=== PATIENT | female | born 1965 | race Caucasian/White ===

== ENCOUNTER 2019-09-21 11:13 | Outpatient (RCR) | payer MEDICARE, SELFPAY ==
[2019-09-21 11:56] LABS: Basophils % 0.4 %; Eosinophils % 0.4 %; Hematocrit 39.8 % (37.0-47.0); Hemoglobin 13.4 g/dL (11.5-15.3); Lymphocytes # 2.1 10^3/uL (0.8-4.8); Lymphocytes % 44.4 %; Mean Corpuscular HGB Conc 33.7 g/dL (30.0-36.0); Mean Corpuscular Hemoglobin 33.2 pg (28.0-34.0); Mean Corpuscular Volume 98.5 fL (81-99); Mean Platelet Volume 8.9 fL (7.4-10.4); Monocytes # 0.3 10^3/uL (0.2-0.9); Monocytes % 6.3 %; Neutrophils # 2.2 10^3/uL (1.8-7.7); Neutrophils % 48.3 %; Nucleated Red Blood Cells % 0 %; Platelet Count 207 10^3/cmm (130-400); Red Blood Count 4.04 10^6/uL (4.1-5.3); White Blood Count 4.6 10^3/uL (4.0-10.0)
[2019-09-21 12:14] LABS: Alanine Aminotransferase 12 U/L (0-33); Albumin Level 5.3 g/dL (3.5-5.2); Alkaline Phosphatase 83 IU/L (35-105); Anion Gap 15.9 (5-19); Blood Urea Nitrogen 8 mg/dL (6-20); Calcium 10.2 mg/Dl (8.6-10.0); Carbon Dioxide 26 mmol/L (22-29); Chloride 98 mmol/L (98-107); Globulin 1.8 g/dL (1.3-4.6); Glomerular Filtration Rate 87.9 mL/min (90-130); Glucose 106 mg/dL (74-109); Potassium 3.9 mmol/L (3.5-5.1); Sodium 136 mmol/L (136-145); Total Bilirubin 0.4 mg/dL (0.15-1.2); Total Protein 7.1 g/dL (6.6-8.7)
[2019-09-21 12:15] LABS: Aspartate Amino Transferase 20 U/L (0-32)
--- NOTE | 2019-09-24 12:42 | ONC FU_ITS ---
Dr. Giron Patient Follow-Up Note Patient: Zee Yancey Unit #: [id number]: [id number] Dicatated By: Moncho Giron M.D.Date of Visit:Sep 21, 2019 Onc Med Follow-up/Prog Note Chief Complaint: Breast cancer/anal canal cancer. History of Present Illness: This is a 54 year-old woman with invasive cancer of the right breast, stage IIA (T1c, pN1, M0), ER positive/WI negative and HER-2/pawan negative. 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 She underwent right modified radical mastectomy in January 2003. Pathology showed a 2 cm invasive carcinoma with involvement in 2 of 8 lymph nodes. The tumor was ER positive at 70%. It was WI negative and HER-2/pawan negative. She was given adjuvant chemotherapy with 4 cycles of epirubicin/cyclophosphamide followed by 4 cycles of Taxol, which she completed in September 2003. She was given adjuvant hormonal therapy with Femara, which she continued until March 2008. Treatment was stopped at that point because of worsening joint pain. Thus far during followup there has been no evidence of recurrence of her breast cancer. 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 A yearly mammogram in April 2014 showed some enlargement of left axillary lymph nodes compared to the prior studies. There were no suspicious findings in the breast. Ultrasound also showed significantly enlarged lymph nodes. They measured 0.89 x 0.92 cm, 1.4 x 3.1 cm, and 1.4 x 1.7 x 3.9 cm. She underwent needle biopsy in [place]. Pathology showed fragments of hyperplastic lymph node with no tumor seen. One of the biopsy specimens showed a single collection of histiocytes suggestive of possible early noncaseating granuloma. In May 2016 she had presented with severe pain in the anal area. It was initially treated as a hemorrhoid. She also had several episodes of rectal bleeding with bright red blood in the stool. She was eventually referred to Dr. Krishnamurthy who performed a colonoscopy on 09/17/2016. It revealed a 4 cm long ulcerated a mass located anteriorly extending from the anal verge. Biopsies showed invasive moderately differentiated keratinizing squamous cell carcinoma. Staging CT of the abdomen and pelvis on 09/25/2016 showed no intra-abdominal, retroperitoneal or pelvic masses, adenopathy, or fluid collections. There were no bony destructive lesions. The clinically described anal mass was not clearly identified on the CT. She did have PET/CT on 10/10/2016 which revealed 4 cm anorectal malignancy with SUV of 15.2; 6 mm right internal iliac lymph node with SUV of 1.8; 3 mm lymph node in the right ischiorectal fat is too small to characterize and bilateral 5 mm inguinal nodes have preserved fatty norma and SUV of 1.2 and were more likely reactive. Thus, by clinical evaluation her disease appeared to be stage II (T2, N0, M0). She was seen by Dr. Howard, and she was offered concurrent therapy with Xeloda/mitomycin and radiation. She began her chemotherapy on 10/27/2016. As of 11/09/2016 her Xeloda was held due to low blood, ANC 500. She was given Levaquin 500 mg po daily, and she was also given Neupogen 300 mcg daily. Her treatment was further complicated by pretty severe nausea/vomiting. She required IV hydration and IV antibiotics on multiple occasions. She also had complaints of urinary frequency, urgency, and one episode of incontinence. She was seen in the emergency room on 11/14/2016. CT scan showed mild circumferential urinary bladder wall thickening and perivesicular edema with bilateral urothelial thickening and periureteral edema. Findings were compatible with cystitis and ascending urinary tract infection. She was discharged home with Bactrim DS. She was also given Zofran for her nausea. She then returned to the clinic on 11/15/2016 for further IV hydration and IV emetics. She eventually was able to restart the Xeloda and radiation. However, her day 29 mitomycin-C had to be delayed. It eventually was administered on 12/09/2016, but with a 50% dose reduction. She completed radiation on 12/17/2016 to a total dose of 5580 cGy. Her follow-up laboratory studies showed moderately severe pancytopenia with ANC dropping to 700, hemoglobin dropping to 8.3 g, and platelet count dropping to 47,000. She had an uneventful recovery. As of 01/27/2017 her hemoglobin was up to 12.2 g with white blood cell count 4200, and platelet count 288,000. She has since then continued on observation/expectant management. Her other medical illnesses include mitral valve prolapse, GERD, and depression. She has had evidence of osteoporosis on her bone density studies, and she also has had a mildly elevated cholesterol. She had evidence of degenerative disease of the cervical spine by MRI. She has had chronic headaches associated with it. She is a nonsmoker. INTERIM HISTORY: Surveillance CT abdomen/pelvis on 04/03/2019 showed no acute findings and no evidence of recurrence/progression of the anal canal cancer. At that point she had lost a little weight and she also complained of some diarrhea, which she thought was related to something she had eaten. She was otherwise doing well clinically, and she continued on observation/expectant management. She is seen for a scheduled visit. She has continued to have intermittent episodes of nausea and diarrhea which last 1 to 2 weeks and cycle about every 3 weeks. She says that during those episodes she cannot eat. She has continued to lose weight. Her energy comes and goes. She is still able to do light work. ECOG score is 1. She has not had fever or night sweats. She has a little bit of hot flashes. She recently became aware of a knot in her throat, and she also has had some cough. She does not complain of shortness of breath or chest pain. She continues to have heartburn despite taking omeprazole twice a day along with Pepcid as needed. She has no complaints. She has lower back pain, and she also has persistent neuropathy pain and headaches, all of which are chronic. Medications: Ativan 0.5 - 1 (1 mg) Tablet Oral four times a day PRN, Cholecalciferol 40251 Units - Take 1 Capsule Oral q 4 weeks, EQ Acid Pipelines Manager Max St 1 Tablet (of 20 mg) Oral b.i.d. PRN, Neurontin 400 mg - Take 1 Capsule Oral b.i.d., Omeprazole 1 (20 mg) Tablet, enteric coated Oral b.i.d., Percocet 10-325 mg - Take 1 Tablet Oral four times a day PRN Allergies: Carafate Review of Systems: Constitutional - Her energy comes and goes. She is doing light work. She has intermittent episodes which she cannot eat. Her weight has dropped more than 10 pounds since March. She has not had fever. She has a little bit of hot flashes. ECOG score is 1, ENMT - She has a constant runny nose. No mouth sores. No sore throat or difficulty swallowing, but she has been aware of a knot in her throat, Hematologic/Lymphatic - No abnormal bruising or bleeding, Respiratory - No shortness of breath. She recently has had a cough. No pleuritic pain or hemoptysis, Cardiovascular - No angina pain. No palpitations, Gastrointestinal - She has episodes of nausea and she continues to have heartburn despite taking omeprazole twice a day and taking Pepcid as needed. She also has intermittent diarrhea. No blood in the stool or black stools, Genitourinary (F) - No dysuria or hematuria. No urinary frequency. No urgency or incontinence, Musculoskeletal - She has lower back pain, which is chronic, Integumentary - No skin complications, Neurologic - She has headaches. She has occasional dizzy spells. She has neuropathy, which is the same, Psychiatric - She has depression which comes and goes. She is having difficulty sleeping. Vital Signs: Performed on Sep 21, 2019 12:57 Height - 67.00 in Weight - 104.6 lbs (LOW) BSA - 1.54 sq.m BMI - 16.38 (LOW) Temperature - 97.5 F (LOW) Pulse - 89 /min Respiration - 14 /min BP - 140/75 mm(hg) O2 Sat - 100 % Pain - 0 Physical Examination: Constitutional - She does not appear ill, but she has had noticeable weight loss, Eyes - Sclerae nonicteric. Conjunctivae clear, ENMT - There are no lesions noted in the oral cavity, Hematologic/Lymphatic - No cervical, clavicular, or axillary adenopathy, Respiratory - Lungs are clear with good air movement bilaterally, Cardiovascular - Heart rhythm is regular. There is a II/ systolic murmur. There is no gallop or rub noted, Abdomen - Soft. Liver and spleen are not enlarged. There is no abdominal mass or ascites noted and there is no inguinal adenopathy, Extremities - No edema, Neurologic - No focal neurologic deficits noted. Lab/Imaging: Test performed on Apr 03, 2019 14:24 Sodium 135 mmol/L Potassium 3.6 mmol/L Chloride 96 mmol/L CO2 28 mmol/L Anion Gap 14.6 BUN 7 mg/dL Creatinine 0.6 mg/dL Cr Clearance (Est) 91.82 mL/min eGFR 105.4 mL/min Glucose 87 mg/dl Calcium 9.4 mg/dL Protein, Total 7.4 g/dL Albumin 4.5 g/dL Globulin 2.9 gm/dL Bilirubin, Total 0.4 mg/dL ALT (SGPT) 11 U/L AST (SGOT) 14 U/L Alkaline Phosphatase 86 IU/L WBC 5.8 /cmm RBC 4.03 10 6/cmm HGB 13.5 g/dl HCT 38.8 % MCV 96.3 /cmm MCH 33.4 pg MCHC 34.7 g/dl RDW 13.3 % Platelet Count 193 10 3/cmm MPV 7.1 fl Neutrophils 2.7 10 3/cmm Lymphocytes 2.7 10 3/cmm Monocytes 0.4 10 3/cmm Eosinophils 0.1 10 3/cmm Basophils 0.0 10 3/cmm Neutrophil % 46.1 % Lymphocyte % 46.1 % Monocyte % 6.3 % Eosinophil % 1.1 % Basophils % 0.4 % Impression: 1. Patient with newly diagnosed squamous cell carcinoma of the anal canal. Thus far by clinical evaluation it appears that her disease is stage II (T2, N0, M0), though her staging PET/CT is still pending. 2. She has previous history of invasive cancer of the right breast, stage IIA, ER positive/WI negative and HER-2/pawan negative. 3. Her treatment included right modified radical mastectomy in January 2003 followed by adjuvant chemotherapy and adjuvant hormonal therapy with Femara. 4. She has had some chronic pain due to peripheral neuropathy from the Taxol. 5. She was found to have left axillary lymphadenopathy by mammogram and ultrasound in April 2014. Needle biopsy of a left axillary lymph node showed no malignancy. Her other medical illnesses include: 6. Mitral valve prolapse. 7. GERD. 8. Chronic migraine. 9. Osteoporosis. 10. Degenerative disease of the spine. 11. She has a history of depression. She began treatment with chemoradiation utilizing the 5-FU/mitomycin C chemotherapy regimen. Her day 1 treatment was administered on 10/27/2016. Her treatment was complicated by severe neutropenia and by recurrent nausea/vomiting. She did recover with Neupogen and with IV hydration. However, her symptoms were severe enough that her Xeloda was temporarily put on hold, and her day 29 mitomycin-C had to be delayed. She eventually did complete her day 29 mitomycin-C, but at a 50% dose reduction. She completed radiation on 12/17/2016 to a total dose of 5580 cGy. During subsequent follow-up she developed moderately severe pancytopenia, but her blood counts recovered uneventfully. Restaging PET/CT from 05/28/2017 was consistent with a complete response to therapy and no evidence of metastatic breast cancer. During subsequent follow-up she continued to have nausea, anorexia, and acid reflux symptoms, but those symptoms had graudally improved, and as of March [address] scans had shown no evidence of recurrent/metastatic disease. Since then she has been having intermittent episodes of nausea and diarrhea, and she has had significant weight loss. The cause for this is uncertain. Plan: She remains on observation/expectant management for the anal canal cancer and the breast cancer. I am very concerned, though, about her GI symptoms and weight loss, and I am going to try and arrange for referral to a senior portfolio manager. I will see her again in 3 months. In the meantime, she will start paroxetine 20 mg daily for the depression. Signed By: Moncho Giron M.D. <<Signature on File>>
== END 2019-10-20 23:59 | disposition home or self-care (01) ==
LOC: ONCMED 11:13
PROVIDERS: Family Provider Nurse Practitioner Family; PCP Nurse Practitioner Family; Visit Provider Internal Medicine Medical Oncology
DX: Z08 Encounter for follow-up examination after completed treatment for malignant neoplasm (principal); Z85.048 Personal history of other malignant neoplasm of rectum, rectosigmoid junction, and anus; Z85.3 Personal history of malignant neoplasm of breast; R11.0 Nausea; R19.7 Diarrhea, unspecified; R63.4 Abnormal weight loss; K21.9 Gastro-esophageal reflux disease without esophagitis; I34.1 Nonrheumatic mitral (valve) prolapse; F32.9 Major depressive disorder, single episode, unspecified; M81.0 Age-related osteoporosis without current pathological fracture; M54.5 Low back pain; G62.0 Drug-induced polyneuropathy; T45.1X5S Adverse effect of antineoplastic and immunosuppressive drugs, sequela; G43.709 Chronic migraine without aura, not intractable, without status migrainosus; Z79.891 Long term (current) use of opiate analgesic; Z90.11 Acquired absence of right breast and nipple; Z92.21 Personal history of antineoplastic chemotherapy; Z92.23 Personal history of estrogen therapy; Z92.3 Personal history of irradiation
CPT/HCPCS: 80053; 85025; 99214

== ENCOUNTER 2020-04-29 10:17 | Outpatient (CLI) | payer MEDICARE, SELFPAY ==
--- NOTE | 2020-04-29 11:45 | ONC FU_ITS ---
[facility] Patient Note Patient: Zee Yancey Unit #: [id number]: [id number] Dictated By: Omar ColladoDate of Visit: Apr 29, 2020 Onc MED Follow-Up/Prog Note Chief Complaint: Breast cancer/anal canal cancer. History of Present Illness: Mrs Yancey is a 54 year-old woman with invasive cancer of the right breast, stage IIA (T1c, pN1, M0), ER positive/NV negative and HER-2/pawan negative. 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 She underwent right modified radical mastectomy in January 2003. Pathology showed a 2 cm invasive carcinoma with involvement in 2 of 8 lymph nodes. The tumor was ER positive at 70%. It was NV negative and HER-2/pawan negative. She was given adjuvant chemotherapy with 4 cycles of epirubicin/cyclophosphamide followed by 4 cycles of Taxol, which she completed in September 2003. She was given adjuvant hormonal therapy with Femara, which she continued until March 2008. Treatment was stopped at that point because of worsening joint pain. Thus far during followup there has been no evidence of recurrence of her breast cancer. 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 A yearly mammogram in April 2014 showed some enlargement of left axillary lymph nodes compared to the prior studies. There were no suspicious findings in the breast. Ultrasound also showed significantly enlarged lymph nodes. They measured 0.89 x 0.92 cm, 1.4 x 3.1 cm, and 1.4 x 1.7 x 3.9 cm. She underwent needle biopsy in [place]. Pathology showed fragments of hyperplastic lymph node with no tumor seen. One of the biopsy specimens showed a single collection of histiocytes suggestive of possible early noncaseating granuloma. In May 2016 she had presented with severe pain in the anal area. It was initially treated as a hemorrhoid. She also had several episodes of rectal bleeding with bright red blood in the stool. She was eventually referred to Dr. Krishnamurthy who performed a colonoscopy on 09/17/2016. It revealed a 4 cm long ulcerated a mass located anteriorly extending from the anal verge. Biopsies showed invasive moderately differentiated keratinizing squamous cell carcinoma. Staging CT of the abdomen and pelvis on 09/25/2016 showed no intra-abdominal, retroperitoneal or pelvic masses, adenopathy, or fluid collections. There were no bony destructive lesions. The clinically described anal mass was not clearly identified on the CT. She did have PET/CT on 10/10/2016 which revealed 4 cm anorectal malignancy with SUV of 15.2; 6 mm right internal iliac lymph node with SUV of 1.8; 3 mm lymph node in the right ischiorectal fat is too small to characterize and bilateral 5 mm inguinal nodes have preserved fatty norma and SUV of 1.2 and were more likely reactive. Thus, by clinical evaluation her disease appeared to be stage II (T2, N0, M0). She was seen by Dr. Howard, and she was offered concurrent therapy with Xeloda/mitomycin and radiation. She began her chemotherapy on 10/27/2016. As of 11/09/2016 her Xeloda was held due to low blood, ANC 500. She was given Levaquin 500 mg po daily, and she was also given Neupogen 300 mcg daily. Her treatment was further complicated by pretty severe nausea/vomiting. She required IV hydration and IV antibiotics on multiple occasions. She also had complaints of urinary frequency, urgency, and one episode of incontinence. She was seen in the emergency room on 11/14/2016. CT scan showed mild circumferential urinary bladder wall thickening and perivesicular edema with bilateral urothelial thickening and periureteral edema. Findings were compatible with cystitis and ascending urinary tract infection. She was discharged home with Bactrim DS. She was also given Zofran for her nausea. She then returned to the clinic on 11/15/2016 for further IV hydration and IV emetics. She eventually was able to restart the Xeloda and radiation. However, her day 29 mitomycin-C had to be delayed. It eventually was administered on 12/09/2016, but with a 50% dose reduction. She completed radiation on 12/17/2016 to a total dose of 5580 cGy. Her follow-up laboratory studies showed moderately severe pancytopenia with ANC dropping to 700, hemoglobin dropping to 8.3 g, and platelet count dropping to 47,000. She had an uneventful recovery. As of 01/27/2017 her hemoglobin was up to 12.2 g with white blood cell count 4200, and platelet count 288,000. She has since then continued on observation/expectant management. Her other medical illnesses include mitral valve prolapse, GERD, and depression. She has had evidence of osteoporosis on her bone density studies, and she also has had a mildly elevated cholesterol. She had evidence of degenerative disease of the cervical spine by MRI. She has had chronic headaches associated with it. She is a nonsmoker. INTERIM HISTORY: Surveillance CT abdomen/pelvis on 04/03/2019 showed no acute findings and no evidence of recurrence/progression of the anal canal cancer. At that point she had lost a little weight and she also complained of some diarrhea, which she thought was related to something she had eaten. She was otherwise doing well clinically, and she continued on observation/expectant management. Ms. Yancey presents today for problem visit. She had called in and spoke with radiation nurse regarding issues with painful sexual intercourse. This is not new. She states is been ongoing for 4 years but is getting no better. She has been using vaginal dilators but states she continues to have significant discomfort with the real thing . She states she also has loss of desire. This is not new either has been ongoing for some time. It is noted that she was placed on Cymbalta in September 2019. She states that she had loss of interest prior to that and has not worsened since being on Cymbalta. She denies any vaginal bleeding or any discharge. She denies any anal bleeding or other abnormalities. She has had occasional situational urinary incontinence with states this is been ongoing for years after she had her hysterectomy. She denies any other medication changes. She denies any trauma or changes in her relationship in general. She states that she has not had a pelvic in many many years probably since the hysterectomy . She states otherwise she is doing well. She has occasional bouts of diarrhea but states that this is getting better and better over time. She is eating good. She states that her nausea eventually went away and has been eating good since. She denies any other pain. Her ECOG is 0. Past Medical History: Chronic headaches Degenerative disease of the cervical spine by MRI Depression GERD Invasive cancer of right breast stage IIA Mitral valve prolapse Past Surgical History: Colonoscopy Partial hysterectomy right oopherectomy Right modified mastectomy in 2002 Allergies: Carafate Medications: Ativan 0.5 - 1 (1 mg) Tablet Oral four times a day PRN Cholecalciferol 65269 Units - Take 1 Capsule Oral q 4 weeks EQ Acid [employer] Max St 1 Tablet (of 20 mg) Oral b.i.d. PRN Neurontin 400 mg - Take 1 Capsule Oral b.i.d. Omeprazole 1 (40 mg) Tablet, enteric coated Oral b.i.d. Percocet 10-325 mg - Take 1 Tablet Oral four times a day PRN Family History: Ms. Yancey's mother at age 72: heart disease. Ms. Kyles father at age 78: heart disease. Her paternal grandmother is : Breast Cancer. Ms. Yancey has 2 maternal aunts: 2 unknown. Ms. Yancey's first maternal aunt's skin cancer. Another maternal aunt's breast cancer. She has 1 maternal uncle who is : unknown cancer. She has 1 paternal uncle with an unknown alive status: lung cancer. Social History: Ms. Yancey is and she is a disabled. Ms. Yancey quit smoking 29 years ago but had smoked 0.5 packs/day for 8 years. She has no history of drinking. She has indicated exposure to the following products: marijuana. Ms. Yancey reports the following support systems: lives with spouse, significant other, family, or friends, lives in own house, supportive family/friends willing to assist with needs, and adequate transportation available for expected visits. Her diet consists of regular meals. She indicates her activity level as: daily activities. Has history of smoking marijuana from age [age] years old to present age. Pt states she smokes marijuana. Review Of Symptoms: Constitutional Denies fevers, chills, night sweats, excessive fatigue or weight loss. Allergic/Immunologic No reactions. Eyes Denies significant visual changes. No diplopia. No amaurosis. ENMT Denies changes in hearing, sore throat, mouth sores, difficulty or changes in swallowing ability, and/or sinus drainage. Hematologic/Lymphatic Denies easy bruising or bleeding. The patient denies any tender or palpable lymph nodes. Respiratory Denies dyspnea on exertion, chest pain, cough or hemoptysis. Denies orthopnea. Cardiovascular Denies anginal chest pain, palpitations or orthopnea. Genitourinary (F) Occasional bladder incontinence but not regular-more situational-like laughing, coughing, etc. She is having painful intercourse despite using vaginal dilators. This has been ongoing since radiation four years ago but is not getting any better. Has loss of interest in sexual activity as well. She has been on Cymbalta since September 2019 but feels like the loss of interest was occurring before then. She does not think it is any worse on the Cymbalta. Musculoskeletal Denies joint pain, swelling or redness. No decreased range of motion. Integumentary Denies chronic rashes, inflammation, ulcerations or skin changes. Neurologic She has occasional headaches-chronic and unchanged. Denies blurred vision, and no areas of focal weakness or numbness. Normal gait. No sensory problems. Psychiatric Denies insomnia, depression, brandan or mood swings. Vital Signs: Performed on Apr 29, 2020 10:43 Height - 67.00 in Weight - 131.2 lbs (HIGH) BSA - 1.69 sq.m BMI - 20.55 Temperature - 97.4 F (LOW) Pulse - 96 /min Respiration - 17 /min BP - 148/90 mm(hg) (HIGH) O2 Sat - 98 % Pain - 0,0 - Fully active, able to carry on all predisease activities without restrictions. (ECOG) Physical Examination: Constitutional Alert, oriented, no acute distress. Skin pink, warm and dry. Head Normocephalic; atraumatic. Eyes Conjunctivae and sclerae are clear and without icterus. Pupils are reactive and equal. Neck Supple without masses or thyromegaly. No jugular venous distension. Hematologic/Lymphatic No petechiae or purpura. Extremities No visible deformities, no cyanosis, clubbing or edema. Musculoskeletal No tenderness or swelling, normal range of motion without obvious weakness. Integumentary No rashes or lesions. Neurologic No sensory or motor deficits, normal cerebellar function, normal gait. Psychiatric Alert and oriented times three. Coherent speech. Verbalizes understanding of our discussions today. Laboratory:none requested Impression: 1. Patient with newly diagnosed squamous cell carcinoma of the anal canal. Thus far by clinical evaluation it appears that her disease is stage II (T2, N0, M0). 2. She has previous history of invasive cancer of the right breast, stage IIA, ER positive/NV negative and HER-2/pawan negative. 3. Her treatment included right modified radical mastectomy in January 2003 followed by adjuvant chemotherapy and adjuvant hormonal therapy with Femara. 4. She has had some chronic pain due to peripheral neuropathy from the Taxol. 5. She was found to have left axillary lymphadenopathy by mammogram and ultrasound in April 2014. Needle biopsy of a left axillary lymph node showed no malignancy. Her other medical illnesses include: 6. Mitral valve prolapse. 7. GERD. 8. Chronic migraine. 9. Osteoporosis. 10. Degenerative disease of the spine. 11. She has a history of depression. She began treatment with chemoradiation utilizing the 5-FU/mitomycin C chemotherapy regimen. Her day 1 treatment was administered on 10/27/2016. Her treatment was complicated by severe neutropenia and by recurrent nausea/vomiting. She did recover with Neupogen and with IV hydration. However, her symptoms were severe enough that her Xeloda was temporarily put on hold, and her day 29 mitomycin-C had to be delayed. She eventually did complete her day 29 mitomycin-C, but at a 50% dose reduction. She completed radiation on 12/17/2016 to a total dose of 5580 cGy. During subsequent follow-up she developed moderately severe pancytopenia, but her blood counts recovered uneventfully. Restaging PET/CT from 05/28/2017 was consistent with a complete response to therapy and no evidence of metastatic breast cancer. During subsequent follow-up she continued to have nausea, anorexia, and acid reflux symptoms, but those symptoms had gradually improved, and as of March [address] scans had shown no evidence of recurrent/metastatic disease. Mrs Yancey presents today with concerns of painful intercourse and loss of desire. Plan: 1. Referral to MARIA GUADALU[facility] Meyers @ [facility] for pelvic evaluation to rule out any structural abnormality. She states it has been years since she has had a pelvic. She was on Femara for an extended period of time due to ER positive breast cancer-diagnosed in 2002. She was diagnosed with anal cancer in 2015 and underwent radiation therapy with concurrent chemotherapy. 2. She has expressed interest in pelvic floor exercises, but I have requested that we rule out any structural abnormality and then pursue exercises. 3. If she has evidence of atrophy/etc related to estrogen deficiency, in extreme cases we have used lowest effective dose of estrogen cream up to three times a week with no evidence of breast cancer recurrence. 4. We will plan to see her back as scheduled in regards to her routine followup. 5. I am glad to see her back after her evaluation with Mrs Nichole for any followup testing that is warranted. 6. I did not change her Cymbalta as she felt she is doing well on it and could not attribute any increase in her cncerns since starting it. 7. Mrs Yancey was encouraged to call us in the interim if we can be of any assistance or if any other problems or questions arise. Signed By: Omar Collado-, AOCNP Moncho Giron MD <<Signature on File>>
== END 2020-04-29 10:18 | disposition home or self-care (01) ==
LOC: ONCMED 10:24
PROVIDERS: Visit Provider Nurse Practitioner
DX: C21.1 Malignant neoplasm of anal canal (principal); I34.1 Nonrheumatic mitral (valve) prolapse; K21.9 Gastro-esophageal reflux disease without esophagitis; G43.909 Migraine, unspecified, not intractable, without status migrainosus; M81.0 Age-related osteoporosis without current pathological fracture; M47.9 Spondylosis, unspecified; Z86.59 Personal history of other mental and behavioral disorders; Z85.3 Personal history of malignant neoplasm of breast
CPT/HCPCS: G0463

== ENCOUNTER 2020-06-03 15:05 | Emergency (ER) | payer MEDICARE, SELFPAY ==
[2020-06-03 15:13] VITALS: BP 157/100; PULSE 104; RESP 14; TEMP 36.8; O2SAT 97; BMI 21.1
--- NOTE | 2020-06-03 15:16 | XR_ITS ---
WS: [id number] EXAM: LEFT HUMERUS: 2 VIEWS DATE OF EXAMINATION: 06/03/2020, 1520 hours COMPARISON: Left elbow films from the same date. HISTORY: 55 years old with elbow pain status post fall. FINDINGS: Bone density is decreased. Again demonstrated is the comminuted complex intra-articular fracture invo lving the distal humerus with a transverse fracture plane across the distal humeral metaphyseal regio n with a parallel intercondylar fracture component as well. There is dislocation of the elbow. The mo re proximal humerus is without additional fracture or dislocation of the left shoulder joint. Soft ti ssue swelling is seen dorsally over the distal humeral region. XR/[place] [id number] IMPRESSION: Comminuted complex intra-articular fracture involving the distal humerus with e lbow dislocation. Post reduction imaging recommended.
--- NOTE | 2020-06-03 15:16 | XR_ITS ---
WS: [id number] EXAM: LEFT ELBOW: 3 VIEWS DATE OF EXAMINATION: 06/03/2020, 1519 hours COMPARISON: None. HISTORY: Patient is 55 years old with elbow pain status post injury. FINDINGS: Overall bone density is somewhat decreased. There is a comminuted intra-articular fracture of the dis dorinda humerus with dislocation of the elbow. The proximal humeral shaft is dislocated dorsally in relat ion to the ulna and radius. The radius is also dislocated in conjunction to the capitellum. Additiona l bony fragment is seen anterior to the anterior displaced condyle. Both fractures appear to have com minuted intra-articular fracture planes. Post reduction imaging recommended. Quite a bit of soft tiss ue swelling is seen over the dorsal humeral region. XR/XR elbow LT min 3V* [id number] IMPRESSION: Comminuted intra-articular fracture involving of the distal humerus with elbow dislocation. The radius is also dislocated in relation to the capitellum. Post reduction imaging recommended.
[2020-06-03 16:49] VITALS: RESP 18
[2020-06-03] MEDS: morphine 4 mg/mL SDV 1 mL IVP (16:49)
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
[2020-06-03] MEDS: propofol 10 mg/mL SDV 20 mL 100 MG IVP (17:21)
[2020-06-03 17:23] VITALS: BP 158/98; PULSE 96; RESP 18; O2SAT 100
[2020-06-03 17:25] VITALS: BP 157/98; PULSE 90; RESP 18; O2SAT 100
--- NOTE | 2020-06-03 17:30 | XR_ITS ---
WS: [id number] EXAM: LEFT ELBOW: LATERAL VIEW ONLY DATE OF EXAMINATION: 06/03/2020, 1732 hours COMPARISON: Left elbow examination from earlier on the same date. HISTORY: Patient is 55 years old with intra-articular fracture dislocation of the left elbow. Status post att empted reduction. FINDINGS: There has been marked reduction of the degree of dislocation. The condyles are still displaced anteri erich but the olecranon is now partially underneath of the distal humeral supracondylar bone. Radiocap itellar alignment is now only subluxed rather than completely dissociated. Soft tissue swelling aroun d the elbow. XR/XR elbow LT 2V [id number] IMPRESSION: Partial reduction of the dislocated left elbow as described.
[2020-06-03 19:07] VITALS: BP 145/98; O2SAT 96
[2020-06-03 19:20] VITALS: BP 145/98; PULSE 76; RESP 20; TEMP 36.4; O2SAT 96
--- NOTE | 2020-06-04 10:35 | DCPLANNER ---
Patient called caser this morning asking about a referral to ortho. clinical trials manager called the ortho clinic, spoke with Poly, gave clinic patients information. A follow up appointment is scheduled for Wednesday, June 05, 2020 at 8:00, clinic called patient with appointment information.
--- NOTE | 2020-06-14 10:52 | DCPLANNER ---
Patient did attend appointment scheduled for 06.05.20 with ortho.
== END 2020-06-03 19:24 | disposition home or self-care (01) ==
PROVIDERS: Emergency Provider Emergency Medicine
DX: S53.105A Unspecified dislocation of left ulnohumeral joint, initial encounter (principal); S42.492A Other displaced fracture of lower end of left humerus, initial encounter for closed fracture; V29.9XXA Motorcycle rider (driver) (passenger) injured in unspecified traffic accident, initial encounter; Z85.3 Personal history of malignant neoplasm of breast; Z85.048 Personal history of other malignant neoplasm of rectum, rectosigmoid junction, and anus; I10 Essential (primary) hypertension
CPT/HCPCS: 12345; 24600; 73060; 73070; 73080; 96374; 96375; 99284; J2270; J2704

== ENCOUNTER 2020-06-07 08:21 | Day surgery (SDC) | payer MEDICARE, SELFPAY ==
[2020-06-06 13:45] VITALS: BMI 21.2
[2020-06-07] VITALS (10 sets, daily range): BP systolic 112–154; BP diastolic 73–93; PULSE 82–102; RESP 16–18; TEMP 36.1–37.2; O2SAT 94–100
--- NOTE | 2020-06-07 | XR_ITS ---
WS: [id number] C-ARM RADIOGRAPHS LEFT HUMERUS; 4 IMAGES HISTORY: OR PICS COMPARISON: 06/03/2020 Intraoperative imaging during plate and screw and pin fixation of the comminuted olecranon fracture i n the proximal olecranon. Alignment of the fractures in the elbow joint appear normal by C-arm. XR/[place] [id number] IMPRESSION: ORIF distal humerus and the proximal olecranon. Fractures in good position and alignment.
--- NOTE | 2020-06-07 | SCC_ITS ---
Procedure Done: Left open internal fixation distal comminuted 100% displaced supracondylar humerus fracture with intercondylar extension utilizing the following C[place] implants: A 3 hole left posterior lateral distal humeral plate, a 3 hole left medial plate, and a 4 hole olecranon plate with locking and non-locking screws as well as cannulated headless compression screws and Vitoss. 52.2 seconds of fluoroscopic guidance, for a cumulative dose of 0.59 mGy, was provided to Dr. Marcum by the radiology department. C-arm images of the LEFT humerus were saved for the patient's permanent record. YAYO
[2020-06-07 09:07] LABS: Add Urine Culture? No; Add Urine Microscopic? YES; Amorphous Sediment Urine 1+ /hpf; Bacteria Urine 2+ /hpf; Bilirubin Urine Neg (Negative); Blood Urine 2+ (Negative); Glucose Urine UA Norm (Normal); Ketones Urine Negative (Negative); Leukocyte Esterase Urine Trace (Negative); Mucus Urine 1+ /hpf; Nitrate Urine Negative (Negative); Protein Urine Neg (Negative); RBC Urine 0-4 /hpf (0-2); Squamous Epithelial Cell Urine 0-4 /hpf (0-5); Urine Appearance Cloudy (CLEAR); Urine Color Yellow (Yellow); Urobilinogen Urine 1 mg/dL (Negative); WBC Urine 0-4 /hpf (0-5)
[2020-06-07] MEDS: CELEcoxib 200 mg Capsule 400 MG PO (09:15)
[2020-06-07] MEDS: sodium chloride 0.9% 1,000 ML 30 ML IV (09:15)
[2020-06-07 09:21] LABS: Basophils % 0.3 %; Eosinophils % 0.3 %; Hemoglobin 10.5 g/dL (11.5-15.3); Lymphocytes # 1.7 10^3/uL (0.8-4.8); Lymphocytes % 27.3 %; Mean Corpuscular HGB Conc 32.8 g/dL (30.0-36.0); Mean Corpuscular Hemoglobin 31.5 pg (28.0-34.0); Mean Corpuscular Volume 96.1 fL (81-99); Mean Platelet Volume 8.8 fL (7.4-10.4); Monocytes # 0.5 10^3/uL (0.2-0.9); Monocytes % 8.5 %; Neutrophils # 3.94 10^3/uL (1.8-7.7); Neutrophils % 63.4 %; Nucleated Red Blood Cells % 0 %; Platelet Count 202 10^3/cmm (130-400); Red Blood Count 3.33 10^6/uL (4.1-5.3); Red Cell Distribution Width 11.9 % (12.1-15.1); White Blood Count 6.2 10^3/uL (4.0-10.0)
--- NOTE | 2020-06-07 09:28 | P.ANESASSM_ITS ---
Pre-Anesthetic Assessment Pre-Anesthetic Assessment: Height/Weight: Height 1.7 m Weight 61.689 kg Temp Pulse Resp BP Pulse Ox 98.9 F 96 18 154/87 98 06/07/20 08:49 06/07/20 08:49 06/07/20 08:49 06/07/20 08:49 06/07/20 08:49 Preop Diagnosis: Comminuted left distal humerus fracture, intra-articular Proposed Procedure: Operation Date: 06/07/20 10:50 Proposed Procedures p ORIF Distal Humerus 20508(Left) - Shyla Marcum MD Familial anesthetic complications: None Was Beta Javier taken within 24 hours: N/A Last intake: Intake Last Liquid Date 06/06/20 Last Liquid Time 23:00 Last Solid Date 06/06/20 Last Solid Time 23:30 Social: Social History: No alcohol and No tobacco Exam: Pre-Anes Outpt Exam: alert, oriented x 3, clear to auscultation bilaterally and regular rate & rhythm Airway: Cervical ROM: WNL MP: 2 Dentition: Full and Other (poor dentition) CV/HEM: Comments: hx of taking atenolol for MVP, but she was taken off of it. Patient achieves > METS. Can walk, go up stairs, jog. GI: GI: GERD Anesthetic Plan: ASA status: 2 Anesthesia: General and Regional (specify below) (supraclavicular) Risk of > 500 ml blood loss (7ml/kg in children): No Meds/Allergies Current Medications: Current Medications Generic Name Dose Route Start Last Admin Trade Name Freq PRN Reason Stop Dose Admin Sodium Chloride 1,000 mls @ 30 ml s/hr 06/07/20 08:45 06/07/20 09:15 Sodium Chloride 0.9% IV 06/08/20 08:44 30 mls/hr .Q24H LUKE Administration PFSH Anesthesia PFSH: Medical History Depression Gastro-esophageal reflux History of anal cancer (~2016) History of breast cancer (~1999) History of cardiac murmur (~1994) Hypertension Small fiber neuropathy Surgical History H/O laparoscopy Both ovaries removed-- due to continued pain H/O total mastectomy (~1999) Right-- ER +/ NC - HER 2 neg H/O wrist surgery Left H/O: hysterectomy (~1996) [place], B/L salpingectomy--due to pelvic pain; [place] Family History Grandmother Breast cancer Paternal grandmother Sister Uterine cancer dx'd in late 20s Father Heart disease Hyperlipidemia Hypertension Mother Diabetes Denies family history of Colon cancer Ovarian cancer Family history of thyroid problem Stroke Social History Additional social history: - Tobacco use: Denies Alcohol use: Denies Drug use: Marijuana use Data Anesthesia CBC & Chem 7: 06/07/20 09:12 06/07/20 09:12 Other Labs: Laboratory Results - last 48 hr 06/07/20 06/07/20 08:41 09:12 WBC 6.2 RBC 3.33 L Hgb 10.5 L Hct 32.0 L MCV 96.1 MCH 31.5 MCHC 32.8 RDW 11.9 L Plt Count 202 MPV 8.8 Neut % (Auto) 63.4 Lymph % (Auto) 27.3 [place] % (Auto) 8.5 Eos % (Auto) 0.3 Baso % (Auto) 0.3 Neut # (Auto) 3.94 Lymph # (Auto) 1.7 [place] # (Auto) 0.5 Eos # (Auto) 0.0 Baso # (Auto) 0.0 Nucleated RBC % (auto) 0 Nucleated RBCs # 0.0 Urine Color Yellow Urine Appearance Cloudy Urine pH 7.0 Ur Specific [place] 1.010 Urine Protein Neg Urine Glucose (UA) Norm Urine Ketones Negative Urine Blood 2+ H Urine Nitrate Negative Urine Bilirubin Neg Urine Urobilinogen 1 H Ur Leukocyte Esterase Trace H Urine RBC 0-4 H Urine WBC 0-4 H Ur Squamous Epith Cells 0-4 H Amorphous Sediment 1+ Urine Bacteria 2+ H Urine Mucus 1+ Cardiac Studies: No Data to Display
[2020-06-07 09:36] LABS: Anion Gap 11.4 (5-19); Blood Urea Nitrogen 7 mg/dL (6-20); Calcium 8.9 mg/dL (8.5-10.5); Carbon Dioxide 32 mmol/L (22-29); Chloride 98 mmol/L (98-107); Glomerular Filtration Rate 104.6 mL/min (90-130); Glucose 120 mg/dL (65-115); Osmolality Calculated 285 mOsm/kg (285-295); Potassium 3.4 mmol/L (3.5-5.1); Sodium 138 mmol/L (136-145)
--- NOTE | 2020-06-07 09:47 | ANES.PROC ---
Anesthesia Procedures Procedure/Date: 06/07/20 Nerve Block ^: Nerve Block 1: Main Anesthesia: general anesthesia Time Out Performed: Yes Consent: requested by attending/covering physician, from patient, risks and benefits reviewed and patient agrees to proceed Nerve block location: supraclavicular (L) Anesthesia monitors applied: pulse oximetry, EKG, BP cuff and oxygen Nerve block position: semi sitting Anesthetic Used: ropivicaine 0.5% and with decadron (4 mg) Amount of anesthesia used (mL): 30 Ultrasound used to: recognize landmarks Nerve Stimulator Used?: No Interscalene/Femoral BLK: 4 stimuplex 21 g needle used for position and inplane approach, visualize local anesthetic spread and no vascular puncture identified Injection: neg aspiration of heme Patient Tolerated Procedure: well Complications: none
[2020-06-07] MEDS: midazolam 1 mg/mL INJ 5 ML 5 MG IVP (09:52)
--- NOTE | 2020-06-07 11:38 | P.HPUD_ITS ---
Surgery/Procedure H&P Update DATE OF PROCEDURE: June 07, 2020 DATE H&P PERFORMED: 06/05/20 H&P UPDATE INFORMATION: I have reviewed H&P completed within last 30 days, I have examined patient prior to procedure, No changes to prior documentation and H&P is in [facility] EMR on date indicated PREOP DIAGNOSIS: Comminuted left distal humerus fracture, intra-articular PLANNED PROCEDURE: Operation Date: 06/07/20 10:50 Proposed Procedures p ORIF Distal Humerus 55336(Left) - Shyla Marcum MD Related Problem List Diagnoses (1) Humerus distal fracture: Qualifiers: Encounter type: initial encounter Fracture type: closed Fracture morphology: other fracture Fracture alignment: displaced Laterality: left Qualified Code(s): S42.492A - Other displaced fracture of lower end of left humerus, initial encounter for closed fracture (2) Closed fracture dislocation of elbow: Qualifiers: Encounter type: initial encounter Laterality: left Qualified Code(s): S42.402A - Unspecified fracture of lower end of left humerus, initial encounter for closed fracture
[2020-06-07] MEDS: vancomycin 1,000 MG in sodium chloride 0.9% 250 ML 250 MG IV (12:05)
--- NOTE | 2020-06-07 14:27 | SUR.OPER ---
1427-Nirav notified via cell phone on progress of surgery. All questions answered
[2020-06-07] MEDS: ceFAZolin 1,000 mg SDV 1000 MG IRRIGATION (15:47)
[2020-06-07] MEDS: ondansetron 2 mg/ML SDV 2 mL 4 MG IVP ×2 (16:42→16:47)
--- NOTE | 2020-06-07 17:23 | ANE.PACU2 ---
Inpatient post-anesthesia follow up: Vital signs: Temperature 98.2 F Pulse Rate 100 Respiratory Rate 18 Blood Pressure 150/75 Pulse Oximetry 95 Oxygen Delivery Me thod Room Air Oxygen Flow Rate 8 Fraction of Inspir ed Oxygen Hydration adequate: Yes Nausea and vomiting: No Pain level: 1 Mental status: Baseline
--- NOTE | 2020-06-07 18:01 | P.OP_ITS ---
Operative Report Date of procedure: June 07, 2020 Pre-op Diagnosis: Comminuted left distal humerus fracture, intra-articular and supracondylar Post-op diagnosis: same Post-op Findings: Severe comminution of the supracondylar and intercondylar distal left humerus. Procedure Done: Left open internal fixation distal comminuted 100% displaced supracondylar humerus fracture with intercondylar extension utilizing the following [place] implants: A 3 hole left posterior lateral distal humeral plate, a 3 hole left medial plate, and a 4 hole olecranon plate with locking and non-locking screws as well as cannulated headless compression screws and Vitoss. Specimens removed/disposition: None Pathology: none sent Surgeon: Shyla Marcum Chain Sales Consultant: [facility] OR technicians Anesthesia: General (Intubated, ASA 2 with interscalene nerve block) Estimated blood loss (mL): 100 Tourniquet time (min): 135 Tourniquet time: at 250 mmHg IV fluids (mL): 1,800 Urine output: No Ward Complications: None Findings: Severely displaced and comminuted distal humerus with 100% displacement and loss of bone and radial ligament injury Condition: stable Disposition: PACU (Then home with family) Brief History: This 55-year-old woman presented to my office after being seen in the emergency department with comminuted 100% displaced elbow fracture dislocation on the left. The patient was reduced in the emergency department. She was placed in better alignment, she was placed in a sling, and she was discharged to follow-up with me in the office. She was scheduled for the above procedure. Extended conversations were had about neurovascular status, nerve risk, and the fracture itself. The patient understood and wished to proceed. Procedure: Patient was brought to the operating theater, and after undergoing adequate general anesthesia preceded by a supracavicular block in the preop holding area, the patient's left upper extremity was prepped and draped in usual fashion utilizing DuraPrep. Following prepping and draping, the tourniquet was elevated without exsanguination of the upper extremity. Total tourniquet time was 135 minutes at 250 mmHg. Prior to commencement of the surgical procedure, a surgical pause was performed. At the time of the surgical pause, we confirmed the site and side of surgery as well as the patient's identity and preoperative surgical markings. We also confirmed availability of equipment and appropriate preoperative IV antibiotics which was Ancef 2g. Fluoroscopy was also brought into position so that we could visualize the fracture and hardware throughout the surgical procedure. The fracture was evaluated prior to tourniquet placement. Following elevation of the tourniquet as well as the surgical pause, an incision was made along the medial aspect of the ulna extending up across the medial aspect of the olecranon and into the midportion of the posterior arm distally. This allowed access to the olecranon posteriorly. Soft tissues were dissected, the ulnar nerve was identified and was removed from the cubital tunnel. This was then tagged with a vessel loop. An interval was developed medially and laterally along the triceps to allow access to the olecranon and to allow for a olecranon osteotomy. The olecranon osteotomy was accomplished in a chevron type fashion. Soft tissues were then dissected to allow the olecranon to be manipulated proximally to allow access to the entire distal humerus. The ulnar nerve was protected throughout the case. Soft tissues were manipulated to allow adequate access to the posterior aspect of the humerus. At this time, the fracture was further evaluated. The proximal fragment was fractured at the supracondylar area. Below that, there was anterior displacement of the distal fragments. There was severe comminution of these fragments. In total, there were probably 10 separate fragments to the very distal humerus with intracondylar extensions. The distal humeral fragment including the intercondylar area was rotated and there were extensions of fracture into the intercondylar area with significant displacement. Initially, attention was directed to the distal humerus. The larger fragments were placed together and held with a combination of K wires and intercondylar compression screws. There was still a large void posteriorly in the lateral condyle. Systematically, we continue to work with the intercondylar area to restore anatomy as much as possible. There were some fragments of bone which had to be discarded posteriorly as there was no way to hold them in position. The lateral plate was a 3 hole left posterior lateral distal humeral plate. This was attached into position with a combination of locking and nonlocking screws. We had to avoid the intramedullary headless screw fixation. Once this plate was in position, we did have stability to the fracture for the most part, we were able to obtain flexion-extension views utilizing fluoroscopy. Finding fracture reduction acceptable both with direct vision and with fluoroscopy, attention was directed to the medial aspect of the distal humerus. A 3 hole left medial plate was then attached with a combination of locking and nonlocking screws. Once this had been appropriately attached, we were able to flex and extend the elbow with no crepitation secondary to hardware. There was a large defect in the lateral condyle which was filled with Vitoss. Evaluation was again accomplished with fluoroscopy. We had good stability to the fracture, but the lateral fixation was concerning secondary to major loss of bone in this area. The artic ular surface did look congruent.. Therefore, the wound was irrigated, and the ulnar osteotomy was reduced and held with a pin. A 4-hole olecranon plate was then placed in position. Compression was obtained across the osteotomy. And this was found to be anatomic. This plate was attached with a combination of locking and nonlocking screws. Once we had accomplished placement of the 3 plates, fluoroscopic evaluation was again accomplished. Screw lengths were felt to be appropriate, and we were pleased with the reduction. Fluoroscopy was utilized during the procedure. Being satisfied with position, the area was copiously irrigated. The ulnar nerve was then transposed medially into a subcutaneous pocket which we had created. Suture was used to hold the nerve in position by closing soft tissues over it. Other fascial tissues were closed using 0 Vicryl. The subcutaneous tissues with 2-0 interrupted Monocryl. We then used armando to close the wound. This was followed by Xeroform gauze, 4 x 4's, and soft roll. A posterior splint was wrapped into position over soft roll and this was wrapped in place with an Corona wrap. The tourniquet was released after 135 minutes. There were no complications. There were no specimens. Patient was returned to recovery room in a satisfactory condition. She was subsequently discharged to home. Associated Problem List Diagnoses (1) Closed fracture dislocation of elbow: Qualifiers: Encounter type: initial encounter Laterality: left Qualified Code(s): S42.402A - Unspecified fracture of lower end of left humerus, initial encounter for closed fracture (2) Supracondylar fracture of left humerus with intercondylar extension:
--- NOTE | 2020-06-07 18:09 | ANE.PACU2 ---
Inpatient post-anesthesia follow up: Airway intact: Yes Vital signs: Temperature 98.2 F Pulse Rate 100 Respiratory Rate 18 Blood Pressure 150/75 Pulse Oximetry 95 Oxygen Delivery Me thod Room Air Oxygen Flow Rate 8 Fraction of Inspir ed Oxygen Hydration adequate: Yes Nausea and vomiting: No Pain level: 1 Mental status: Baseline
== END 2020-06-07 18:01 | disposition home or self-care (01) ==
PROVIDERS: Visit Provider Specialist
PROC: (CPT 24546; principal; 2020-06-07 10:50)
DX: S42.402A Unspecified fracture of lower end of left humerus, initial encounter for closed fracture (principal); I10 Essential (primary) hypertension; K21.9 Gastro-esophageal reflux disease without esophagitis; V29.3XXA Motorcycle rider (driver) (passenger) injured in unspecified nontraffic accident, initial encounter
CPT/HCPCS: 24546; 12345; 73060; 76000; 80048; 81001; 85025; 96374; C1713; J0690; J1100; J2250; J2370; J2405; J2704; J2765; J2795; J3010; J3370; J3490; J7030; J7050

== ENCOUNTER → 2020-06-20 15:17 | Outpatient (BNVA) | payer MEDICARE, SELFPAY | PROVIDERS: Visit Provider Specialist | DX: Z47.89 Encounter for other orthopedic aftercare (principal); S42.492D Other displaced fracture of lower end of left humerus, subsequent encounter for fracture with routine healing; W19.XXXD Unspecified fall, subsequent encounter | CPT/HCPCS: 73080; 97760; L3761 ==

== ENCOUNTER 2020-06-20 16:19 | Outpatient (CLI) | payer MEDICARE, SELFPAY | END 2020-06-20 16:20 | disposition home or self-care (01) | LOC: SPT 16:19 | PROVIDERS: Visit Provider Specialist | DX: Z47.89 Encounter for other orthopedic aftercare (principal); S42.492D Other displaced fracture of lower end of left humerus, subsequent encounter for fracture with routine healing; X58.XXXD Exposure to other specified factors, subsequent encounter | CPT/HCPCS: 97760; L3761 ==

== ENCOUNTER → 2020-07-10 11:22 | Outpatient (BNVA) | payer MEDICARE, SELFPAY | PROVIDERS: Visit Provider Specialist | DX: Z47.89 Encounter for other orthopedic aftercare (principal); S52.502D Unspecified fracture of the lower end of left radius, subsequent encounter for closed fracture with routine healing; X58.XXXD Exposure to other specified factors, subsequent encounter; M19.032 Primary osteoarthritis, left wrist | CPT/HCPCS: 73080; 73110 ==

== ENCOUNTER → 2020-07-31 15:21 | Outpatient (BNVA) | payer MEDICARE, SELFPAY | PROVIDERS: Visit Provider Specialist | DX: S42.492A Other displaced fracture of lower end of left humerus, initial encounter for closed fracture (principal); M25.532 Pain in left wrist; S52.002A Unspecified fracture of upper end of left ulna, initial encounter for closed fracture | CPT/HCPCS: 73080 ==

== ENCOUNTER 2020-08-06 06:00 | Outpatient (RCR) | payer MEDICARE, SELFPAY | END 2020-08-19 23:59 | disposition home or self-care (01) | LOC: TOT 06:00 | PROVIDERS: Referring Provider Specialist; Visit Provider Specialist | DX: S42.402D Unspecified fracture of lower end of left humerus, subsequent encounter for fracture with routine healing (principal) | CPT/HCPCS: 97165; 97530 ==

== ENCOUNTER 2020-08-20 06:00 | Outpatient (RCR) | payer MEDICARE, SELFPAY | END 2020-09-19 23:59 | disposition home or self-care (01) | LOC: TOT 06:00 | PROVIDERS: Referring Provider Specialist; Visit Provider Specialist | DX: S42.402D Unspecified fracture of lower end of left humerus, subsequent encounter for fracture with routine healing (principal) | CPT/HCPCS: 97110; 97140 ==

== ENCOUNTER → 2020-09-04 09:08 | Outpatient (BNVA) | payer MEDICARE, SELFPAY | PROVIDERS: Visit Provider Specialist | DX: Z47.89 Encounter for other orthopedic aftercare; W19.XXXD Unspecified fall, subsequent encounter; S42.492D Other displaced fracture of lower end of left humerus, subsequent encounter for fracture with routine healing | CPT/HCPCS: 73080 ==

== ENCOUNTER 2021-03-22 14:52 | Emergency (ER) | payer MEDICARE, SELFPAY ==
[2021-03-22 15:28] VITALS: BP 142/100; PULSE 99; RESP 18; TEMP 36.9; O2SAT 96; BMI 21.9
[2021-03-22 15:37] VITALS: BP 148/98; PULSE 102; RESP 18; O2SAT 96
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
[2021-03-22 16:47] VITALS: BP 148/98; PULSE 103; RESP 18; O2SAT 98
[2021-03-22 16:58] LABS: Basophils % 0.4 %; Eosinophils % 0.6 %; Hematocrit 40.5 % (37.0-47.0); Hemoglobin 13.8 g/dL (11.5-15.3); Lymphocytes # 2.6 10^3/uL (0.8-4.8); Lymphocytes % 36.1 %; Mean Corpuscular HGB Conc 34.1 g/dL (30.0-36.0); Mean Corpuscular Hemoglobin 31.4 pg (28.0-34.0); Mean Corpuscular Volume 92.3 fL (81-99); Mean Platelet Volume 9.2 fL (7.4-10.4); Monocytes # 0.5 10^3/uL (0.2-0.9); Monocytes % 7.5 %; Neutrophils # 3.99 10^3/uL (1.8-7.7); Neutrophils % 55.3 %; Nucleated Red Blood Cells % 0 %; Platelet Count 245 10^3/cmm (130-400); Red Blood Count 4.39 10^6/uL (4.1-5.3); Red Cell Distribution Width 11.9 % (12.1-15.1); White Blood Count 7.2 10^3/uL (4.0-10.0)
[2021-03-22 17:32] LABS: SARS Covid-2 Antigen Negative (Negative)
[2021-03-22 18:12] VITALS: BP 157/89; PULSE 98; RESP 18; O2SAT 99
--- NOTE | 2021-03-22 18:31 | CTR_ITS ---
PROCEDURE INFORMATION: Exam: CT Abdomen And Pelvis With Contrast Exam date and time: 03/22/2021 6:31 PM Age: 55 years old Clinical indication: Abdominal pain; Localized; Left lower quadrant (llq); Prior surgery; Surgery date: 6+ months; Surgery type: Hyst; Patient HX: HX of rectal and breast CA C/O llq pain and rectal bright blood x 1 week; Additional info: Rectal bleeding, HX of rectal cancer TECHNIQUE: Imaging protocol: Computed tomography of the abdomen and pelvis with contrast. Radiation optimization: All CT scans at this facility use at least one of these dose optimization techniques: automated exposure control; mA and/or kV adjustment per patient size (includes targeted exams where dose is matched to clinical indication); or iterative reconstruction. Contrast material: OMNI 300; Contrast volume: 95 ml; Contrast route: INTRAVENOUS (IV); COMPARISON: CT abdomen pelvis w con* [id number] 04/03/2019 2:01 PM RADIATION DOSE METRICS: Total DLP (mGy-cm): 818.62 FINDINGS: Lungs: Lung bases are clear. Liver: The liver is normal. Gallbladder and bile ducts: The gallbladder is normal. There is no biliary dilation. Pancreas: The pancreas is unremarkable. Spleen: The spleen is unremarkable. Adrenal glands: The adrenal glands are unremarkable. Kidneys and ureters: The kidneys are unremarkable. No hydronephrosis or stones. No ureteral dilation. Stomach and bowel: The stomach is decompressed, preventing meaningful evaluation of wall thickness. The small bowel is nondilated. The colon is unremarkable. Appendix: The appendix is normal. Intraperitoneal space: There is no free air or significant intraperitoneal free fluid. Vasculature: There is moderate aortic atherosclerotic disease. The portal, splenic and superior mesenteric veins are patent. Lymph nodes: There is no lymphadenopathy in the retroperitoneum, mesentery, pelvis or inguinal regions. Urinary bladder: The urinary bladder is decompressed. The wall is mildly thickened and there is mucosal hyperenhancement and subtle serosal surface edema. Reproductive: The uterus is absent. There is no adnexal mass or large cyst. Bones/joints: Bones are unremarkable. Soft tissues: The abdominal wall is intact. CT/CT abdomen pelvis w con* [id number] IMPRESSION: 1. The urinary bladder has a thickened wall and mucosal hyperemia. These findings may be related to luminal decompression or cystitis. Correlate with urinalysis. 2. Incidental findings above. Radiation Dose CTDIVOL = (mGy): DLP = 818.62 (mGy-cm)
[2021-03-22 18:32] LABS: Alanine Aminotransferase 30 U/L (0-33); Albumin Level 4.4 g/dL (3.5-5.2); Alkaline Phosphatase 120 IU/L (35-105); Anion Gap 13.7 (5-19); Aspartate Amino Transferase 29 U/L (0-32); Blood Urea Nitrogen 8 mg/dL (6-20); Calcium 9.6 mg/dL (8.5-10.5); Carbon Dioxide 28 mmol/L (22-29); Chloride 99 mmol/L (98-107); Globulin 2.9 g/dL (1.3-4.6); Glomerular Filtration Rate 87.5 mL/min (90-130); Glucose 106 mg/dL (65-115); Osmolality Calculated 283 mOsm/kg (285-295); Potassium 3.7 mmol/L (3.5-5.1); Sodium 137 mmol/L (136-145); Total Bilirubin 0.2 mg/dL (0.15-1.2); Total Protein 7.3 g/dL (6.6-8.7)
[2021-03-22] MEDS: iohexol 300 mg/mL 100 mL Btl IV (19:01)
[2021-03-22 19:55] VITALS: BP 157/89; PULSE 84; RESP 16; TEMP 36.9
[2021-03-22 21:05] LABS: Urine Appearance Clear (CLEAR); Urine Color Straw (Yellow); pH Urine 7 (5-7)
[2021-03-22 21:06] LABS: Add Urine Culture? No; Bilirubin Urine Neg (Negative); Blood Urine 2+ (Negative); Glucose Urine UA Norm (Normal); Ketones Urine Negative (Negative); Leukocyte Esterase Urine Negative (Negative); Nitrate Urine Negative (Negative); Protein Urine Neg (Negative); RBC Urine 0-4 /hpf (0-2); Squamous Epithelial Cell Urine 0-4 /hpf (0-5); Urobilinogen Urine Norm (Negative)
[2021-03-22 21:34] VITALS: BP 157/89; PULSE 84; RESP 16; TEMP 36.9; O2SAT 98
--- NOTE | 2021-03-25 13:37 | DCPLANNER ---
golf sales manager had message to schedule a follow up appointment for patient with general surgery for possible colonoscopy. golf sales manager emailed patients information to Faye at [facility] General Surgery. Patients information will be printed and reviewed. Clinic will call patient with appointment information.
--- NOTE | 2021-03-27 07:54 | DCPLANNER ---
Patient has a follow up appointment scheduled for Thursday, April 01, 2021 at 8:[address] Krishnamurthy at general surgery. Clinic will call patient with appointment information.
--- NOTE | 2021-04-17 08:50 | DCPLANNER ---
Patient did attend appointment scheduled with general surgery.
== END 2021-03-22 21:36 | disposition home or self-care (01) ==
PROVIDERS: Family Medicine; Emergency Provider Emergency Medicine
DX: K62.5 Hemorrhage of anus and rectum (principal); Z85.3 Personal history of malignant neoplasm of breast; Z85.048 Personal history of other malignant neoplasm of rectum, rectosigmoid junction, and anus; I10 Essential (primary) hypertension; Z20.822 Contact with and (suspected) exposure to COVID-19; Z79.899 Other long term (current) drug therapy
CPT/HCPCS: 36415; 74177; 80053; 81001; 85025; 86850; 86900; 87086; 87426; 99283; Q9967

== ENCOUNTER 2021-05-20 08:31 | Outpatient (CLI) | payer MEDICARE, SELFPAY ==
[2021-05-20 09:52] LABS: Basophils % 0.3 %; Eosinophils % 0.3 %; Hematocrit 40.9 % (37.0-47.0); Lymphocytes # 1.7 10^3/uL (0.8-4.8); Lymphocytes % 27.6 %; Mean Corpuscular HGB Conc 34.2 g/dL (30.0-36.0); Mean Corpuscular Volume 90.7 fl (81-99); Monocytes # 0.4 10^3/uL (0.2-0.9); Monocytes % 6.8 %; Neutrophils # 3.99 10^3/uL (1.8-7.7); Neutrophils % 64.8 %; Nucleated Red Blood Cells % 0 %; Platelet Count 265 10^3/cmm (130-400); Red Blood Count 4.51 10^6/uL (4.1-5.3); Red Cell Distribution Width 11.4 % (12.1-15.1); White Blood Count 6.2 10^3/uL (4.0-10.0)
[2021-05-20 10:19] LABS: Alanine Aminotransferase 29 U/L (0-33); Albumin Level 4.5 g/dL (3.5-5.2); Alkaline Phosphatase 119 IU/L (35-105); Aspartate Amino Transferase 24 U/L (0-32); Blood Urea Nitrogen 10 mg/dL (6-20); Calcium 9.6 mg/dL (8.5-10.5); Carbon Dioxide 26 mmol/L (22-29); Chloride 101 mmol/L (98-107); Globulin 2.8 g/dL (1.3-4.6); Glomerular Filtration Rate 104.6 mL/min (90-130); Glucose 124 mg/dL (65-115); Osmolality Calculated 286 mOsm/kg (285-295); Sodium 138 mmol/L (136-145); Total Bilirubin 0.3 mg/dL (0.15-1.2); Total Protein 7.3 g/dL (6.6-8.7)
[2021-05-20 10:44] LABS: Anion Gap 15.5 (5-19); Potassium 4.5 mmol/L (3.5-5.1)
--- NOTE | 2021-05-21 07:52 | ONC FU_ITS ---
Dr. Giron Patient Follow-Up Note Patient: Zee Yancey Unit #: [id number]: 1965 Dicatated By: Moncho Giron M.D.Date of Visit:May 20, 2021 Onc Med Follow-up/Prog Note Chief Complaint: Breast cancer/anal canal cancer. History of Present Illness: This is a 55 year-old woman with invasive cancer of the right breast, stage IIA (T1c, pN1a, M0), ER positive/MO negative and HER-2/pawan negative. 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 She underwent right modified radical mastectomy in January 2003. Pathology showed a 2 cm invasive carcinoma with involvement in 2 of 8 lymph nodes. The tumor was ER positive at 70%. It was MO negative and HER-2/pawan negative. She was given adjuvant chemotherapy with 4 cycles of epirubicin/cyclophosphamide followed by 4 cycles of Taxol, which she completed in September 2003. She was given adjuvant hormonal therapy with Femara, which she continued until March 2008. Treatment was stopped at that point because of worsening joint pain. Thus far during followup there has been no evidence of recurrence of her breast cancer. 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 A yearly mammogram in April 2014 showed some enlargement of left axillary lymph nodes compared to the prior studies. There were no suspicious findings in the breast. Ultrasound also showed significantly enlarged lymph nodes. They measured 0.89 x 0.92 cm, 1.4 x 3.1 cm, and 1.4 x 1.7 x 3.9 cm. She underwent needle biopsy in [place]. Pathology showed fragments of hyperplastic lymph node with no tumor seen. One of the biopsy specimens showed a single collection of histiocytes suggestive of possible early noncaseating granuloma. In May 2016 she had presented with severe pain in the anal area. It was initially treated as a hemorrhoid. She also had several episodes of rectal bleeding with bright red blood in the stool. She was eventually referred to Dr. Krishnamurthy who performed a colonoscopy on 09/17/2016. It revealed a 4 cm long ulcerated a mass located anteriorly extending from the anal verge. Biopsies showed invasive moderately differentiated keratinizing squamous cell carcinoma. Staging CT of the abdomen and pelvis on 09/25/2016 showed no intra-abdominal, retroperitoneal or pelvic masses, adenopathy, or fluid collections. There were no bony destructive lesions. The clinically described anal mass was not clearly identified on the CT. She did have PET/CT on 10/10/2016 which revealed 4 cm anorectal malignancy with SUV of 15.2; 6 mm right internal iliac lymph node with SUV of 1.8; 3 mm lymph node in the right ischiorectal fat is too small to characterize and bilateral 5 mm inguinal nodes have preserved fatty norma and SUV of 1.2 and were more likely reactive. Thus, by clinical evaluation her disease appeared to be stage II (T2, N0, M0). She was seen by Dr. Howard, and she was offered concurrent therapy with Xeloda/mitomycin and radiation. She began her chemotherapy on 10/27/2016. As of 11/09/2016 her Xeloda was held due to low blood, ANC 500. She was given Levaquin 500 mg po daily, and she was also given Neupogen 300 mcg daily. Her treatment was further complicated by pretty severe nausea/vomiting. She required IV hydration and IV antibiotics on multiple occasions. She also had complaints of urinary frequency, urgency, and one episode of incontinence. She was seen in the emergency room on 11/14/2016. CT scan showed mild circumferential urinary bladder wall thickening and perivesicular edema with bilateral urothelial thickening and periureteral edema. Findings were compatible with cystitis and ascending urinary tract infection. She was discharged home with Bactrim DS. She was also given Zofran for her nausea. She then returned to the clinic on 11/15/2016 for further IV hydration and IV emetics. She eventually was able to restart the Xeloda and radiation. However, her day 29 mitomycin-C had to be delayed. It eventually was administered on 12/09/2016, but with a 50% dose reduction. She completed radiation on 12/17/2016 to a total dose of 5580 cGy. Her follow-up laboratory studies showed moderately severe pancytopenia with ANC dropping to 700, hemoglobin dropping to 8.3 g, and platelet count dropping to 47,000. She had an uneventful recovery. As of 01/27/2017 her hemoglobin was up to 12.2 g with white blood cell count 4200, and platelet count 288,000. She has since then continued on observation/expectant management. Her other medical illnesses include mitral valve prolapse, GERD, and depression. She has had evidence of osteoporosis on her bone density studies, and she also has had a mildly elevated cholesterol. She had evidence of degenerative disease of the cervical spine by MRI. She has had chronic headaches associated with it. Her surgeries include right breast lumpectomy followed by right modified radical mastectomy in January 2003. She underwent total abdominal hysterectomy and bilateral salpingectomy around 1996 and she later underwent bilateral oophorectomy. In May 2020 she underwent open reduction/internal fixation for comminuted fracture of the left distal humerus. She has a left axillary lymph node biopsy in 2013. She had previous surgery on her left wrist. She is a nonsmoker. INTERIM HISTORY: Surveillance CT abdomen/pelvis on 04/03/2019 showed no acute findings and no evidence of recurrence/progression of the anal canal cancer. At that point she had lost a little weight and she also complained of some diarrhea, which she thought was related to something she had eaten. She was otherwise doing well clinically, and she continued on observation/expectant management. On 04/01/2021 she was seen in the emergency room with rectal bleeding. Her CT abdomen/pelvis showed evidence of thickening of the bladder wall and mucosal hyperemia. There was no evidence of recurrent or metastatic disease. She had a follow-up visit with Dr. Krishnamurthy on 04/01/2021. She is to be scheduled to have a surveillance colonoscopy on the of next month. She is seen for a follow-up visit. She has had no further episodes of rectal bleeding since the ER visit in March. Her main complaint otherwise is that she had been under a lot of marital stress, and she is now from her . During this time, she also cut back her omeprazole from twice a day to once a day. Whether due to that, to being less stressed out, or to other factors is uncertain, but she recently has noted resolution of diarrhea and mucousy stools, which previously had been an ongoing problem for ever since her chemoradiation. Her energy lately has been better. Her ECOG score is 1. She has good appetite. She has not had fever. She has some hot flashes, but not too bad. She has chronic sinus symptoms. Lately she has had soreness in her lower lip, possibly related to her getting dentures. She has no shortness of breath, cough, or chest pain. She has no other GI or complaints. She had been having some pain in her right leg, that seems to have resolved. She has chronic neck and back pain, and lately that also has been better. She still some headaches and she has neuropathy pain in her hands and feet. Medications: Ativan 0.5 - 1 (1 mg) Tablet Oral four times a day PRN, Cholecalciferol 22688 Units - Take 1 Capsule Oral q 4 weeks, EQ Acid Vp Product Marketing Max St 1 Tablet (of 20 mg) Oral b.i.d. PRN, Neurontin 400 mg - Take 1 Capsule Oral b.i.d., Omeprazole 1 (40 mg) Tablet, enteric coated Oral daily, Percocet 10-325 mg - Take 1 Tablet Oral four times a day PRN Allergies: Carafate Vital Signs: Performed on May 20, 2021 09:31 Height - 67.00 in Weight - 134.4 lbs (HIGH) BSA - 1.71 sq.m BMI - 21.05 Temperature - 97.8 F (LOW) Pulse - 105 /min (HIGH) Respiration - 18 /min BP - 150/95 mm(hg) (HIGH) O2 Sat - 98 % Pain - 0 Fatigue - 0 Physical Examination: Constitutional - She looks pretty good generally, Eyes - Sclerae nonicteric. Conjunctivae clear, ENMT - There are no lesions noted in the oral cavity, Hematologic/Lymphatic - No cervical or clavicular adenopathy, Respiratory - Lungs are clear with good air movement bilaterally, Cardiovascular - Heart rhythm is regular. There is a II/ systolic murmur. There is no gallop or rub noted, Breasts - The right chest wall shows no lesions. The left breast shows no mass. There is no axillary adenopathy noted, Abdomen - Soft. Liver and spleen are not enlarged. There is no abdominal mass or ascites noted and there is no inguinal adenopathy, Extremities - No edema, Neurologic - No focal neurologic deficits noted. Lab/Imaging: Test performed on May 20, 2021 09:30 Sodium 138 mmol/L Potassium 4.5 mmol/L Chloride 101 mmol/L CO2 26 mmol/L Anion Gap 15.5 BUN 10 mg/dL Creatinine 0.6 mg/dL Cr Clearance (Est) 104.3600 mL/min eGFR 104.6 mL/min Glucose 124 mg/dL Osmolality - Calculated 286 mOsm/kg Calcium 9.6 mg/dL Protein, Total 7.3 g/dL Albumin 4.5 g/dL Globulin 2.8 g/dL Bilirubin, Total 0.3 mg/dL ALT (SGPT) 29 U/L AST (SGOT) 24 U/L Alkaline Phosphatase 119 IU/L WBC 6.2 10 3/uL RBC 4.51 10 6/uL HGB 14.0 g/dL HCT 40.9 % MCV 90.7 fl MCH 31.0 pg MCHC 34.2 g/dL RDW 11.4 % Platelet Count 265 10 3/cmm MPV 9.0 fL Neutrophils 3.99 10 3/uL Lymphocytes 1.7 10 3/uL Monocytes 0.4 10 3/uL Eosinophils 0.0 10 3/uL Basophils 0.0 10 3/uL Neutrophil % 64.8 % Lymphocyte % 27.6 % Monocyte % 6.8 % Eosinophil % 0.3 % Basophils % 0.3 % NRBC % 0 % Problem List: 1. Squamous cell carcinoma of the anal canal, by clinical evaluation stage II (T2, N0, M0). 2. History of invasive cancer of the right breast, stage IIA, ER positive/MO negative and HER-2/pawan negative. 3. She has had some chronic pain due to peripheral neuropathy from the Taxol. 4. Mitral valve prolapse. 5. GERD. 6 Chronic migraine. 7 Osteoporosis. 8. Degenerative disease of the spine. 9. She has a history of depression. Problems Addressed with this Encounter and Plan: 1. Patient with squamous cell carcinoma of the anal canal, by clinical evaluation stage II (T2, N0, M0). She underwent chemoradiation utilizing mitomycin C/Xeloda for the chemosensitization. She had significant chemotherapy related side effects, requiring dose reductions and treatment delays. She completed radiation on 12/17/2016 to a total dose of 5580 cGy. Restaging PET/CT from 05/28/2017 was consistent with a complete response to therapy and no evidence of metastatic breast cancer. During follow-up there has been no evidence of recurrence of the anal canal cancer. However, in March 2021 she was seen in the emergency room with several episodes of rectal bleeding. Her CT abdomen/pelvis at that time showed no evidence of recurrent or metastatic disease. She had subsequent follow-up with Dr. Krishnamurthy, and she is scheduled to undergo surveillance colonoscopy on 05/29/2021. Overall she appears to be doing well clinically. Assuming her colonoscopy is negative, I will just plan to see her for a follow-up visit in 6 months. 2. She has a history of invasive carcinoma of the right breast, stage IIA (T1c, pN1a, M0), ER positive/MO negative and HER-2/pawan negative. Her treatment included right modified radical mastectomy in January 2003 followed by adjuvant chemotherapy and adjuvant hormonal therapy with Femara. During follow-up there has been no evidence of recurrence. 3. She has had some chronic pain due to peripheral neuropathy from the Taxol. She will continue symptomatic management. Signed By: Moncho Giron M.D. <<Signature on File>>
== END 2021-05-20 08:32 | disposition home or self-care (01) ==
PROVIDERS: PCP Family Medicine; Visit Provider Internal Medicine Medical Oncology
DX: Z08 Encounter for follow-up examination after completed treatment for malignant neoplasm (principal); Z85.048 Personal history of other malignant neoplasm of rectum, rectosigmoid junction, and anus; Z85.3 Personal history of malignant neoplasm of breast; Z92.21 Personal history of antineoplastic chemotherapy; Z92.3 Personal history of irradiation; Z79.899 Other long term (current) drug therapy
CPT/HCPCS: 36415; 80053; 85025; 99214

== ENCOUNTER → 2021-05-23 13:15 | Outpatient (BNVA) | payer MEDICARE, SELFPAY | PROVIDERS: PCP Family Medicine; Visit Provider Surgery | DX: Z20.822 Contact with and (suspected) exposure to COVID-19 (principal) | CPT/HCPCS: 87635 ==

== ENCOUNTER → 2021-07-28 12:41 | Outpatient (BNVA) | payer MEDICARE, SELFPAY | PROVIDERS: PCP Family Medicine; Visit Provider Surgery | DX: Z20.822 Contact with and (suspected) exposure to COVID-19 (principal) | CPT/HCPCS: 87635 ==

== ENCOUNTER 2021-07-31 08:51 | Day surgery (SDC) | payer MEDICARE, SELFPAY ==
[2021-05-27 14:46] VITALS: BMI 20.9
[2021-07-28 13:35] VITALS: BMI 37.5
--- NOTE | 2021-07-31 09:18 | ANES.PREANE2 ---
Pre-Anesthetic Assessment Pre-Anesthetic Assessment: Height/Weight: Height 1.7 m Weight 108.862 kg Preop Diagnosis: screening colonoscopy Proposed Procedure: Operation Date: 05/29/21 11:15 Proposed Procedures p Colonoscopy 04909 K62.5(Not Applicable) - Isaak Krishnamurthy MD Operation Date: 07/31/21 10:15 Proposed Procedures p Colonoscopy 33736 K62.5(Not Applicable) - Isaak Krishnamurthy MD Was Beta Javier taken within 24 hours: N/A Was Clonidine taken within 24 hours: N/A Social: Social History: No tobacco Exam: Pre-Anes Outpt Exam: alert, oriented x 3, clear to auscultation bilaterally and regular rate & rhythm Airway: Submandibular: WNL Cervical ROM: WNL MP: 2 History/ROS: No significant complaints GI: GI: GERD Anesthetic Plan: ASA status: 2 Anesthesia: Anesthesia Evaluation and MAC Risk of > 500 ml blood loss (7ml/kg in children): No PFSH Anesthesia PFSH: Medical History (Updated 07/23/21 @ 16:58 by Phyllis Knutson) Depression Gastro-esophageal reflux History of anal cancer (~2016) stage II (T2, N0, M0). History of breast cancer (~1999) stage IIA (T1c, pN1, M0), ER positive/[place] negative and HER-2/pawan negative. Hypertension Psychiatric care Small fiber neuropathy Status post chemoradiation Vitamin A deficiency Surgical History H/O laparoscopy Both ovaries removed-- due to continued pain H/O total mastectomy (~1999) Right-- ER +/ [place] - HER 2 neg H/O wrist surgery Left H/O: hysterectomy (~1996) [place], B/L salpingectomy--due to pelvic pain; [place] History of colonoscopy with polypectomy Family History Grandmother Breast cancer Paternal grandmother Sister Uterine cancer dx'd in late 20s Father Heart disease Hyperlipidemia Hypertension Mother Diabetes Denies family history of Colon cancer Ovarian cancer Family history of thyroid problem Stroke Social History Additional social history: - Tobacco use: Denies Alcohol use: Denies Drug use: Marijuana use Data Anesthesia Cardiac Studies: No Data to Display
[2021-07-31 09:24] VITALS: BP 106/72; PULSE 82; RESP 16; TEMP 36.4; O2SAT 100
[2021-07-31] MEDS: sodium chloride 0.9% 1,000 ML 30 ML IV (09:39)
--- NOTE | 2021-07-31 10:21 | W.PM.OPSUD ---
Surgery/Procedure H&P Update DATE OF PROCEDURE: July 31, 2021 DATE H&P PERFORMED: 07/08/21 H&P UPDATE INFORMATION: I have reviewed H&P completed within last 30 days, I have examined patient prior to procedure and No changes to prior documentation PREOP DIAGNOSIS: screening colonoscopy PLANNED PROCEDURE: Operation Date: 05/29/21 11:15 Proposed Procedures p Colonoscopy 15097 K62.5(Not Applicable) - Isaak Krishnamurthy MD Operation Date: 07/31/21 10:15 Proposed Procedures p Colonoscopy 92902 K62.5(Not Applicable) - Isaak Krishnamurthy MD
[2021-07-31 11:10] VITALS: BP 101/76; PULSE 84; RESP 16; TEMP 36.1; O2SAT 97
[2021-07-31 11:15] VITALS: BP 108/83; PULSE 82; RESP 18; O2SAT 95
--- NOTE | 2021-07-31 15:28 | ANE.PACU2 ---
Inpatient post-anesthesia follow up: Airway intact: Yes Vital signs: Temperature 97.0 F Pulse Rate 82 Respiratory Rate 18 Blood Pressure 108/83 Pulse Oximetry 95 Oxygen Delivery Me thod Room Air Oxygen Flow Rate Fraction of Inspir ed Oxygen Hydration adequate: Yes Nausea and vomiting: No Pain level: 1 Mental status: Baseline
== END 2021-07-31 11:33 | disposition home or self-care (01) ==
PROVIDERS: PCP Family Medicine; Visit Provider Surgery
PROC: 0DJD8ZZ Inspection of Lower Intestinal Tract, Via Natural or Artificial Opening Endoscopic (ICD-10-PCS; CPT 45378; principal; 2021-07-31 10:15)
DX: Z12.11 Encounter for screening for malignant neoplasm of colon (principal); D12.4 Benign neoplasm of descending colon; K64.8 Other hemorrhoids; Z85.048 Personal history of other malignant neoplasm of rectum, rectosigmoid junction, and anus; Z85.3 Personal history of malignant neoplasm of breast; I10 Essential (primary) hypertension; K21.9 Gastro-esophageal reflux disease without esophagitis; Z92.21 Personal history of antineoplastic chemotherapy; Z92.3 Personal history of irradiation
CPT/HCPCS: 45380; 88305; 96360; J2704; J7030

== ENCOUNTER → 2021-10-15 17:44 | Outpatient (BNVA) | payer MEDICARE, SELFPAY | PROVIDERS: PCP Family Medicine; Visit Provider Family Medicine | DX: H53.8 Other visual disturbances (principal); R42 Dizziness and giddiness; K64.9 Unspecified hemorrhoids; I10 Essential (primary) hypertension; E50.9 Vitamin A deficiency, unspecified; Z79.899 Other long term (current) drug therapy | CPT/HCPCS: 80053; 82306; 82607; 83540; 84443; 85025 ==

== ENCOUNTER → 2021-11-17 10:55 | Outpatient (BNVA) | payer OTHER, SELFPAY | PROVIDERS: PCP Family Medicine; Visit Provider Obstetrics & Gynecology | DX: N89.8 Other specified noninflammatory disorders of vagina (principal) | CPT/HCPCS: 88305 ==

== ENCOUNTER 2021-11-18 12:00 | Outpatient (CLI) | payer OTHER, SELFPAY ==
--- NOTE | 2021-11-21 17:41 | ONC FU_ITS ---
Dr. Giron Patient Follow-Up Note Patient: Zee Yancey Unit #: [id number]: [id number] Dicatated By: Moncho Giron M.D.Date of Visit:Nov 18, 2021 Onc Med Follow-up/Prog Note Chief Complaint: Breast cancer/anal canal cancer. History of Present Illness: This is a 56 year-old woman with invasive cancer of the right breast, stage IIA (T1c, pN1a, M0), ER positive/IL negative and HER-2/pawan negative. 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 She underwent right modified radical mastectomy in January 2003. Pathology showed a 2 cm invasive carcinoma with involvement in 2 of 8 lymph nodes. The tumor was ER positive at 70%. It was IL negative and HER-2/pawan negative. She was given adjuvant chemotherapy with 4 cycles of epirubicin/cyclophosphamide followed by 4 cycles of Taxol, which she completed in September 2003. She was given adjuvant hormonal therapy with Femara, which she continued until March 2008. Treatment was stopped at that point because of worsening joint pain. Thus far during followup there has been no evidence of recurrence of her breast cancer. 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 A yearly mammogram in April 2014 showed some enlargement of left axillary lymph nodes compared to the prior studies. There were no suspicious findings in the breast. Ultrasound also showed significantly enlarged lymph nodes. They measured 0.89 x 0.92 cm, 1.4 x 3.1 cm, and 1.4 x 1.7 x 3.9 cm. She underwent needle biopsy in [place]. Pathology showed fragments of hyperplastic lymph node with no tumor seen. One of the biopsy specimens showed a single collection of histiocytes suggestive of possible early noncaseating granuloma. In May 2016 she had presented with severe pain in the anal area. It was initially treated as a hemorrhoid. She also had several episodes of rectal bleeding with bright red blood in the stool. She was eventually referred to Dr. Krishnamurthy who performed a colonoscopy on 09/17/2016. It revealed a 4 cm long ulcerated a mass located anteriorly extending from the anal verge. Biopsies showed invasive moderately differentiated keratinizing squamous cell carcinoma. Staging CT of the abdomen and pelvis on 09/25/2016 showed no intra-abdominal, retroperitoneal or pelvic masses, adenopathy, or fluid collections. There were no bony destructive lesions. The clinically described anal mass was not clearly identified on the CT. She did have PET/CT on 10/10/2016 which revealed 4 cm anorectal malignancy with SUV of 15.2; 6 mm right internal iliac lymph node with SUV of 1.8; 3 mm lymph node in the right ischiorectal fat is too small to characterize and bilateral 5 mm inguinal nodes have preserved fatty norma and SUV of 1.2 and were more likely reactive. Thus, by clinical evaluation her disease appeared to be stage II (T2, N0, M0). She was seen by Dr. Howard, and she was offered concurrent therapy with Xeloda/mitomycin and radiation. She began her chemotherapy on 10/27/2016. As of 11/09/2016 her Xeloda was held due to low blood, ANC 500. She was given Levaquin 500 mg po daily, and she was also given Neupogen 300 mcg daily. Her treatment was further complicated by pretty severe nausea/vomiting. She required IV hydration and IV antibiotics on multiple occasions. She also had complaints of urinary frequency, urgency, and one episode of incontinence. She was seen in the emergency room on 11/14/2016. CT scan showed mild circumferential urinary bladder wall thickening and perivesicular edema with bilateral urothelial thickening and periureteral edema. Findings were compatible with cystitis and ascending urinary tract infection. She was discharged home with Bactrim DS. She was also given Zofran for her nausea. She then returned to the clinic on 11/15/2016 for further IV hydration and IV emetics. She eventually was able to restart the Xeloda and radiation. However, her day 29 mitomycin-C had to be delayed. It eventually was administered on 12/09/2016, but with a 50% dose reduction. She completed radiation on 12/17/2016 to a total dose of 5580 cGy. Her follow-up laboratory studies showed moderately severe pancytopenia with ANC dropping to 700, hemoglobin dropping to 8.3 g, and platelet count dropping to 47,000. She had an uneventful recovery. As of 01/27/2017 her hemoglobin was up to 12.2 g with white blood cell count 4200, and platelet count 288,000. She has since then continued on observation/expectant management. Her other medical illnesses include mitral valve prolapse, GERD, and depression. She has had evidence of osteoporosis on her bone density studies, and she also has had a mildly elevated cholesterol. She had evidence of degenerative disease of the cervical spine by MRI. She has had chronic headaches associated with it. Her surgeries include right breast lumpectomy followed by right modified radical mastectomy in January 2003. She underwent total abdominal hysterectomy and bilateral salpingectomy around 1996 and she later underwent bilateral oophorectomy. In May 2020 she underwent open reduction/internal fixation for comminuted fracture of the left distal humerus. She has a left axillary lymph node biopsy in 2013. She had previous surgery on her left wrist. She is a nonsmoker. INTERIM HISTORY: Surveillance CT abdomen/pelvis on 04/03/2019 showed no acute findings and no evidence of recurrence/progression of the anal canal cancer. At that point she had lost a little weight and she also complained of some diarrhea, which she thought was related to something she had eaten. She was otherwise doing well clinically, and she continued on observation/expectant management. On 04/01/2021 she was seen in the emergency room with rectal bleeding. Her CT abdomen/pelvis showed evidence of thickening of the bladder wall and mucosal hyperemia. There was no evidence of recurrent or metastatic disease. She had a follow-up visit with Dr. Krishnamurthy on 04/01/2021. Her surveillance colonoscopy on 07/31/2021 showed a 5 mm sessile polyp in the descending colon which was removed with cold biopsy forceps. There were no other abnormal findings. Pathology showed tubular adenoma with no high-grade dysplasia identified. She had called here 1 week ago to report that she had developed a painful bump in her vagina. Referral was made to [facility]. She was seen there by Dr. Garibay on 11/17/2021. On exam she was noted to have a 0.5 cm nodule in the vagina at the posterior hymen. Pathology showed benign squamous epithelium with a focal area suggesting hemangioma-like findings. There was no atypia or malignancy identified. She is seen for a follow-up visit. She has been feeling pretty good generally. She says her energy is okay most of the time, though she does have somewhat limited activity. ECOG score is 1. She has good appetite. She has gained weight. She has not had fever. She does have hot flashes and sweating at least once every night. She reports having dizziness/lightheadedness which comes and goes and recently she has been having double vision. She has constant sinus drainage. She has nonproductive cough. She does not complain of shortness of breath or chest pain. She reports having a little nausea. She has ongoing problems with acid reflux, but she does manage it adequately taking omeprazole and sitting up when she sleeps. Her bowels tend to be loose and she does pass a little slime off and on. Bladder function has been okay. She has chronic pain in the neck and back and she says she has been having lots of charley horses. She has headache on a daily basis. She has neuropathy pain in both legs. She has anxiety and depression, but lately that has been somewhat better, she and her are back together now. She still sometimes has trouble sleeping. Medications: Ativan 0.5 - 1 (1 mg) Tablet Oral four times a day PRN, Cholecalciferol 80701 Units - Take 1 Capsule Oral q 4 weeks, EQ [facility] Max St 1 Tablet (of 20 mg) Oral b.i.d. PRN, Neurontin 400 mg - Take 1 Capsule Oral b.i.d., Omeprazole 1 (40 mg) Tablet, enteric coated Oral daily, Percocet 10-325 mg - Take 1 Tablet Oral four times a day PRN Allergies: Carafate Vital Signs: Performed on Nov 18, 2021 12:25 Height - 67.00 in Weight - 152.2 lbs (HIGH) BSA - 1.80 sq.m BMI - 23.84 Temperature - 97.4 F (LOW) Pulse - 123 /min (HIGH) Respiration - 18 /min BP - 144/97 mm(hg) (HIGH) O2 Sat - 92 % (LOW) Pain - 0 Fatigue - 4 Physical Examination: Constitutional - She looks pretty good generally, Eyes - Sclerae nonicteric. Conjunctivae clear, ENMT - There are no lesions noted in the oral cavity, Hematologic/Lymphatic - No cervical or clavicular adenopathy, Respiratory - Lungs are clear with good air movement bilaterally, Cardiovascular - Heart rhythm is regular. There is a II/ systolic murmur. There is no gallop or rub noted, Abdomen - Soft. Liver and spleen are not enlarged. There is no abdominal mass or ascites noted and there is no inguinal adenopathy, Extremities - No edema, Integumentary - There are no lesions noted in the right chest wall. There is no axillary adenopathy, Neurologic - No focal neurologic deficits noted. Her extraocular eye movements appear intact. There is a slight twitch to the lower eyelid. Lab/Imaging: Her laboratory studies from 10/15/2021 included CBC showing hemoglobin 13.3 g, white blood cell count 7100, and platelet count 276,000. Comprehensive metabolic profile showed normal renal function with BUN 9 and creatinine 0.7 mg/dL. Liver enzymes were slightly elevated with SGOT 34/32 U/L, SGPT 46/33 U/L, and alkaline phosphatase 110/105 IU/L. The bilirubin was normal at 0.2 mg/dL. Her B12 and TSH levels were normal. Problem List: 1. Squamous cell carcinoma of the anal canal, by clinical evaluation stage II (T2, N0, M0). 2. History of invasive cancer of the right breast, stage IIA, ER positive/IL negative and HER-2/pawan negative. 3. She has had some chronic pain due to peripheral neuropathy from the Taxol. 4. Mitral valve prolapse. 5. GERD. 6 Chronic migraine. 7 Osteoporosis. 8. Degenerative disease of the spine. 9. She has a history of depression. Problems Addressed with this Encounter and Plan: 1. Patient with squamous cell carcinoma of the anal canal, by clinical evaluation stage II (T2, N0, M0). She underwent chemoradiation utilizing mitomycin C/Xeloda for the chemosensitization. She had significant chemotherapy related side effects, requiring dose reductions and treatment delays. She completed radiation on 12/17/2016 to a total dose of 5580 cGy. Restaging PET/CT from 05/28/2017 was consistent with a complete response to therapy and no evidence of metastatic breast cancer. During follow-up there has been no evidence of recurrence of the anal canal cancer. However, in March 2021 she was seen in the emergency room with several episodes of rectal bleeding. Her CT abdomen/pelvis at that time showed no evidence of recurrent or metastatic disease. Her surveillance colonoscopy on 07/31/2021 showed a tubular adenoma in the descending colon which was removed endoscopically. There were no other abnormal findings. She had subsequently become aware of a lump in her vagina. She was noted on exam to have a 0.5 cm nodule at the posterior hymen. Biopsy showed benign findings. Overall she has been doing pretty well clinically. She is due for surveillance CT scans, and those will be scheduled. She will have further evaluation as indicated, but in the absence of any evidence of recurrent or new malignancy, she will continue expectant management. I will tentatively plan a follow-up visit in 6 months. In the meantime, I will schedule follow-up with Dr. Carrera regarding the double vision. 2. She has a history of invasive carcinoma of the right breast, stage IIA (T1c, pN1a, M0), ER positive/IL negative and HER-2/pawan negative. Her treatment included right modified radical mastectomy in January 2003 followed by adjuvant chemotherapy and adjuvant hormonal therapy with Femara. During follow-up there has been no evidence of recurrence. 3. She has had some chronic pain due to peripheral neuropathy from the Taxol. She continues symptomatic management. Signed By: Moncho Giron M.D. <<Signature on File>>
== END 2021-11-18 12:01 | disposition home or self-care (01) ==
LOC: ONCMED 12:11
PROVIDERS: PCP Family Medicine; Visit Provider Internal Medicine Medical Oncology
DX: Z85.3 Personal history of malignant neoplasm of breast (principal); Z85.048 Personal history of other malignant neoplasm of rectum, rectosigmoid junction, and anus; G62.9 Polyneuropathy, unspecified; G89.29 Other chronic pain; K21.9 Gastro-esophageal reflux disease without esophagitis; M81.0 Age-related osteoporosis without current pathological fracture; F32.A Depression, unspecified; I34.1 Nonrheumatic mitral (valve) prolapse; G43.909 Migraine, unspecified, not intractable, without status migrainosus; Z79.899 Other long term (current) drug therapy
CPT/HCPCS: 99214

== ENCOUNTER 2021-12-03 09:33 | Outpatient (CLI) | payer OTHER, SELFPAY ==
--- NOTE | 2021-12-03 11:00 | US_ITS ---
WS: [email or web address] ULTRASOUND PELVIS TECHNIQUE: Transabdominal and transvaginal. ULTRASOUND PELVIS TECHNIQUE: Transabdominal. CLINICAL INFORMATION: N93.9 - Abnormal uterine and vaginal bleeding, unspecified LMP: Hysterectomy : No. COMPARISON: None. FINDINGS: Uterus Prior hysterectomy Adnexa: Both ovaries have been removed. No adnexal masses. Free fluid: None. Other findings: None. US/US pelvic with transvaginal IMPRESSION: 1. Prior hysterectomy and bilateral oophorectomy. 2. Normal adnexa. No cystic or solid adnexal lesions. 3. No free fluid in the cul-de-sac. 4. No other significant findings.
== END 2021-12-03 09:34 | disposition home or self-care (01) ==
LOC: RAD 09:34
PROVIDERS: PCP Family Medicine; Visit Provider Obstetrics & Gynecology
DX: N93.9 Abnormal uterine and vaginal bleeding, unspecified (principal); Z90.710 Acquired absence of both cervix and uterus
CPT/HCPCS: 76830; 76856

== ENCOUNTER 2021-12-12 08:51 | Outpatient (CLI) | payer OTHER, SELFPAY ==
--- NOTE | 2021-12-12 09:07 | CT_ITS ---
WS: [email or web address] CT scan of the abdomen and pelvis with Oral and IV contrast. Additional two-dimensional coronal and s agittal reconstruction was performed. 12/12/2021 Clinical Data: ANAL CANAL CANCER Comparison: CT abdomen pelvis, 03/22/2021. DLP: 944.[address] scans at [facility] use at least one of these dose optimization techniques: automated e xposure control; mA and/or kV adjustment per patient size (includes targeted exams where dose is matc hed to clinical indication); or iterative reconstruction. Findings: The lower lungs show no nodules, masses or effusions. The liver, gallbladder, spleen, adrenal glands and pancreas are normal. The kidneys show equal bilateral contrast excretion with no cyst or masses. The abdominal aorta is normal in size with calcification in the wall and minimal mural thrombus. No appendicitis or diverticulitis is seen. Oral contrast is in the stomach, small bowel and colon and there is no bowel dilatation. No abscess, adenopathy, ascites, mass, obstruction or free air is seen . The bladder is unremarkable. The uterus is absent. No inguinal hernia is seen. The bones of the lower thorax, lumbar spine, pelvis, and hips are normal. CT/CT abdomen pelvis w con* [id number] Impression: Negative for acute intra-abdominal or pelvic abnormalities.
[2021-12-12] MEDS: iohexol 300 mg/mL 50 mL Btl PO (09:20)
[2021-12-12] MEDS: iohexol 300 mg/mL 100 mL Btl IV (11:01)
== END 2021-12-12 08:52 | disposition home or self-care (01) ==
PROVIDERS: PCP Family Medicine; Visit Provider Internal Medicine Medical Oncology
DX: C21.1 Malignant neoplasm of anal canal (principal)
CPT/HCPCS: 74177

== ENCOUNTER 2022-01-01 10:25 | Outpatient (CLI) | payer OTHER, SELFPAY ==
--- NOTE | 2022-01-01 10:15 | MR_ITS ---
WS: [id number] MRI HEAD WITH CONTRAST WITH ATTENTION TO THE INTERNAL AUDITORY CANALS TECHNIQUE: Sagittal T1, T2 axial, T2 axial flair, axial susceptibility weighted imaging, axial diffus ion weighted images, and coronal T2 images were obtained. Pre and post T1 axial and post T1 coronal i mages. ADC and FSPGR images. Post gadolinium images with attention to the internal auditory canals. A xial fiesta imaging. CLINICAL INFORMATION: H53.2 - Diplopia COMPARISON: MRI 7 15,08 CT 4 19,014 FINDINGS: No evidence of restricted diffusion to suggest acute ischemia. Ventricular system and basal cisterns are patent. No suspicious intracranial signal abnormalities. Normal rosas-white differentiation. Zainab l posterior fossa. Normal vascular flow voids at the skull base. No extra-axial fluid collections. No evidence of mass or mass effect. Mild mucosal thickening in the paranasal sinuses. Mastoid air cells are well aerated. No hemosiderin on the susceptibly weighted images. Normal posterior nasopharynx. Orbits are normal wh ere visualized. Normal optic chiasm and pituitary infundibulum. Normal temporal lobes and hippocampal formations. Pro ximal 7th and 8th cranial nerves are normal in appearance. No evidence of enhancing IAC or CP angle m ass. Normal trigeminal nerve root entry zones. Normal cavernous sinuses. No abnormal intracranial enh ancement. MR/MR iac's wo/w con* [id number] IMPRESSION: 1. No evidence of restricted diffusion to suggest acute ischemia. 2. No suspicious intracranial signal abnormalities. Normal rosas-white differen tiation. No significant parenchymal volume loss. 3. Paranasal sinuses and mastoid air cells are well aerated. 4. Proximal 7th and 8th cranial nerves are normal in appearance. No evidence o f enhancing IAC or CP angle mass. 5. Normal trigeminal nerve root entry zones. 6. No hemosiderin on susceptibly weighted images. 7. No abnormal intracranial enhancement. 8. Normal optic chiasm and pituitary infundibulum. Normal cavernous sinuses bi laterally.
== END 2022-01-01 10:26 | disposition home or self-care (01) ==
PROVIDERS: PCP Family Medicine; Visit Provider Specialist
DX: H53.2 Diplopia (principal)
CPT/HCPCS: 70553

== ENCOUNTER 2022-01-29 09:43 | Outpatient (CLI) | payer MEDICARE, SELFPAY ==
--- NOTE | 2022-01-29 10:41 | MM_ITS ---
WS: [email or web address] DIAGNOSTIC LEFT DIGITAL BREAST TOMOSYNTHESIS MAMMOGRAPHY WITH CAD. HISTORY: HX OF BREAST CA COMPARISON: 04/01/2018 and 06/05/2015 Technique: CC, MLO and ML views. Breast composition: There are scattered areas of fibroglandular density. No suspicious mass or calci fication. MM/[place] [id number] IMPRESSION: BI-RADS: 1-Negative FOLLOW UP: 1 Year Follow-up
== END 2022-01-29 09:44 | disposition home or self-care (01) ==
LOC: RAD 09:49
PROVIDERS: PCP Family Medicine; Visit Provider Family Medicine
DX: Z85.3 Personal history of malignant neoplasm of breast (principal)
CPT/HCPCS: 77061

== ENCOUNTER → 2022-03-19 14:10 | Outpatient (BNVA) | payer MEDICARE, SELFPAY | PROVIDERS: PCP Family Medicine; Visit Provider Specialist | DX: G43.711 Chronic migraine without aura, intractable, with status migrainosus (principal); R42 Dizziness and giddiness; H93.19 Tinnitus, unspecified ear; G62.9 Polyneuropathy, unspecified | CPT/HCPCS: 99214 ==

== ENCOUNTER → 2022-04-28 09:35 | Outpatient (BNVA) | payer MEDICARE, SELFPAY | PROVIDERS: PCP Family Medicine; Visit Provider Specialist | DX: G43.711 Chronic migraine without aura, intractable, with status migrainosus (principal); G62.9 Polyneuropathy, unspecified; R42 Dizziness and giddiness; H93.19 Tinnitus, unspecified ear | CPT/HCPCS: 99213; 99214 ==

== ENCOUNTER → 2022-05-06 10:33 | Outpatient (BNVA) | payer MEDICARE, SELFPAY | PROVIDERS: PCP Family Medicine; Visit Provider Otolaryngology | DX: Z87.891 Personal history of nicotine dependence (principal); R42 Dizziness and giddiness; H93.19 Tinnitus, unspecified ear | CPT/HCPCS: 99202; 99203 ==

== ENCOUNTER → 2022-05-19 17:44 | Outpatient (BNVA) | payer MEDICARE, SELFPAY | PROVIDERS: PCP Family Medicine; Visit Provider Nurse Practitioner Family | DX: I10 Essential (primary) hypertension (principal); R21 Rash and other nonspecific skin eruption; E55.9 Vitamin D deficiency, unspecified; L30.9 Dermatitis, unspecified; R07.9 Chest pain, unspecified; I34.1 Nonrheumatic mitral (valve) prolapse | CPT/HCPCS: 80053; 80061; 82306; 82607; 83721; 83735; 84439; 84443; 85025; 85651; 86140; 86618; 86666; 86757 ==

== ENCOUNTER → 2022-06-09 15:55 | Outpatient (BNVA) | payer MEDICARE, SELFPAY | PROVIDERS: PCP Family Medicine; Visit Provider Nurse Practitioner Family | DX: R79.89 Other specified abnormal findings of blood chemistry (principal); I10 Essential (primary) hypertension; E78.5 Hyperlipidemia, unspecified; E03.9 Hypothyroidism, unspecified | CPT/HCPCS: 80053; 86705; 86706; 86709; 86803; 87340 ==

== ENCOUNTER 2022-06-30 08:18 | Outpatient (CLI) | payer MEDICARE, SELFPAY ==
--- NOTE | 2022-06-30 08:45 | US_ITS ---
WS: [email or web address] RIGHT UPPER QUADRANT ULTRASOUND HISTORY: R79.89 - Other specified abnormal findings of blood chemistry. COMPARISON: None available. Liver: 14.8 cm in length. Normal size liver. Mild coarsened echotexture from hepatic steatosis. No ma ss or bile duct dilatation. Portal Vein: Normal hepatopetal flow with monophasic waveform. Gallbladder: Normally distended gallbladder with no stones or wall thickening. CBD: 0.3 cm Pancreas: Tail and head are poorly visualized. The body is normal. Right kidney: 11.3 cm in length. Normal size and echogenicity. No hydronephrosis or mass. Aorta and IVC: Unremarkable abdominal aorta and IVC. No ascites. US/US liver [id number] IMPRESSION: 1. Normal gallbladder. 2. Mild hepatic steatosis.
== END 2022-06-30 08:19 | disposition home or self-care (01) ==
LOC: RAD 08:19
PROVIDERS: PCP Family Medicine; Visit Provider Nurse Practitioner Family
DX: R79.89 Other specified abnormal findings of blood chemistry (principal); K76.0 Fatty (change of) liver, not elsewhere classified
CPT/HCPCS: 76705

== ENCOUNTER → 2022-07-01 14:58 | Outpatient (BNVA) | payer MEDICARE, SELFPAY | PROVIDERS: PCP Family Medicine; Visit Provider Nurse Practitioner Family | DX: R06.02 Shortness of breath (principal); R79.89 Other specified abnormal findings of blood chemistry; E78.5 Hyperlipidemia, unspecified | CPT/HCPCS: 71046; 80076; 82977; 83915 ==

== ENCOUNTER 2022-07-10 09:36 | Oncology outpatient (recurring) (ONCR) | payer MEDICARE, SELFPAY | END 2022-07-20 23:59 | disposition home or self-care (01) | LOC: ONCMED 09:36 | PROVIDERS: PCP Family Medicine; Visit Provider Internal Medicine Medical Oncology | DX: Z08 Encounter for follow-up examination after completed treatment for malignant neoplasm (principal); Z85.048 Personal history of other malignant neoplasm of rectum, rectosigmoid junction, and anus; Z85.3 Personal history of malignant neoplasm of breast; Z92.3 Personal history of irradiation; Z92.21 Personal history of antineoplastic chemotherapy; G62.9 Polyneuropathy, unspecified; M25.50 Pain in unspecified joint | CPT/HCPCS: 99214 ==

== ENCOUNTER → 2022-07-23 13:17 | Outpatient (BNVA) | payer MEDICARE, SELFPAY | PROVIDERS: PCP Family Medicine; Visit Provider Internal Medicine Cardiovascular Disease | DX: R42 Dizziness and giddiness (principal); I10 Essential (primary) hypertension; R00.2 Palpitations; E78.5 Hyperlipidemia, unspecified; K21.9 Gastro-esophageal reflux disease without esophagitis; E03.9 Hypothyroidism, unspecified | CPT/HCPCS: 93246; 99204 ==

== ENCOUNTER → 2022-07-28 13:17 | Outpatient (BNVA) | payer MEDICARE, SELFPAY | PROVIDERS: PCP Family Medicine; Visit Provider Specialist | DX: G43.711 Chronic migraine without aura, intractable, with status migrainosus (principal); F11.20 Opioid dependence, uncomplicated | CPT/HCPCS: 99214 ==

== ENCOUNTER → 2022-07-30 14:20 | Outpatient (BNVA) | payer MEDICARE, SELFPAY | PROVIDERS: PCP Family Medicine; Visit Provider Nurse Practitioner Family | DX: E03.9 Hypothyroidism, unspecified (principal); G43.711 Chronic migraine without aura, intractable, with status migrainosus; G47.00 Insomnia, unspecified | CPT/HCPCS: 84439; 84443 ==

== ENCOUNTER → 2022-11-12 13:21 | Outpatient (BNVA) | payer MEDICARE, SELFPAY | PROVIDERS: PCP Family Medicine; Visit Provider Nurse Practitioner Family | DX: I10 Essential (primary) hypertension (principal) | CPT/HCPCS: 99213 ==

== ENCOUNTER → 2022-12-01 12:49 | Outpatient (BNVA) | payer MEDICARE, SELFPAY | PROVIDERS: PCP Family Medicine; Visit Provider Family Medicine | DX: E03.9 Hypothyroidism, unspecified (principal); E55.9 Vitamin D deficiency, unspecified; E78.5 Hyperlipidemia, unspecified; G47.00 Insomnia, unspecified; I10 Essential (primary) hypertension; M19.90 Unspecified osteoarthritis, unspecified site; M81.0 Age-related osteoporosis without current pathological fracture; F32.9 Major depressive disorder, single episode, unspecified; R07.9 Chest pain, unspecified | CPT/HCPCS: 80053; 80061; 82306; 84443; 85025 ==

== ENCOUNTER 2022-12-08 14:03 | Outpatient (CLI) | payer MEDICARE, SELFPAY ==
--- NOTE | 2022-12-08 14:00 | XR_ITS ---
WS: [email or web address] SCREENING DEXA SCAN [employer] CLINICAL INFORMATION: M81.0 - Age-related osteoporosis without current patholog... COMPARISON: None. FINDINGS: The L1-L4 bone mineral density measures 0.862 g/cm2. This corresponds to a T score score of -2.7 and Z score of -1.9. Left femoral neck bone mineral density measures 0.770 g/cm2. This corresponds to a T score of -1.9 an d Z score of -1.2. Right femoral neck bone mineral density measures 0.789 g/cm2. This corresponds to a T score -1.7of an d Z score of -1.1. Mean femoral neck bone mineral density measures 0.779 g/cm2. This corresponds to a T score of -1.8 an d Z score of -1.2. XR/XR DEXA axial skeleton* [id number] IMPRESSION: Osteoporosis lumbar spine. Osteopenia femoral necks. Patient's FRAX calculated 10 year probability for major osteoporotic fracture i s 14.4 % and osteoporotic hip fracture is 2.2%.
== END 2022-12-08 14:04 | disposition home or self-care (01) ==
LOC: RAD 14:07
PROVIDERS: PCP Family Medicine; Visit Provider Family Medicine
DX: M81.0 Age-related osteoporosis without current pathological fracture (principal); M85.852 Other specified disorders of bone density and structure, left thigh; M85.851 Other specified disorders of bone density and structure, right thigh
CPT/HCPCS: 77080

== ENCOUNTER 2023-02-11 10:26 | Outpatient (CLI) | payer MEDICARE, SELFPAY ==
--- NOTE | 2023-02-11 10:40 | MM_ITS ---
WS: [email or web address] DIAGNOSTIC LEFT DIGITAL TOMOSYNTHESIS MAMMOGRAPHY WITH CAD. HISTORY: HX OF BREAST CX COMPARISON: 01/29/2022, 01/30/2018 Technique: CC, MLO and ML views. Breast composition: There are scattered areas of fibroglandular density. No suspicious mass or calci fications. No architectural distortion. No nipple retraction. MM/[place] [id number] IMPRESSION: BI-RADS: 1-Negative FOLLOW UP: 1 Year Follow-up
== END 2023-02-11 10:27 | disposition home or self-care (01) ==
PROVIDERS: PCP Family Medicine; Visit Provider Family Medicine
DX: Z85.3 Personal history of malignant neoplasm of breast (principal)
CPT/HCPCS: 77061; G0279

== ENCOUNTER → 2023-03-24 12:15 | Outpatient (BNVA) | payer MEDICARE, SELFPAY | PROVIDERS: PCP Family Medicine; Visit Provider Nurse Practitioner Family | DX: E78.5 Hyperlipidemia, unspecified (principal); R73.9 Hyperglycemia, unspecified; R10.31 Right lower quadrant pain; R19.7 Diarrhea, unspecified; Z79.899 Other long term (current) drug therapy | CPT/HCPCS: 80053; 80061; 83036; 83721; 84443; 85025 ==

== ENCOUNTER 2023-03-30 07:04 | Outpatient (CLI) | payer MEDICARE, SELFPAY ==
--- NOTE | 2023-03-30 08:00 | CTR_ITS ---
PROCEDURE INFORMATION: Exam: CT Abdomen And Pelvis With Contrast Exam date and time: 03/30/2023 8:21 AM Age: 57 years old Clinical indication: Abdominal pain; Localized; Right lower quadrant (rlq); Prior surgery; Surgery date: 6+ months; Surgery type: Hyst, right breast; Patient HX: HX of colorectal and breast cancer. Right lower and mid abdomen pain with constant diarrhea x 2 weeks; Additional info: R10.31 - right lower quadrant pain TECHNIQUE: Imaging protocol: Computed tomography of the abdomen and pelvis with contrast. 205image(s) are provided. Radiation optimization: All CT scans at this facility use at least one of these dose optimization techniques: automated exposure control; mA and/or kV adjustment per patient size (includes targeted exams where dose is matched to clinical indication); or iterative reconstruction. Contrast material: OMNI 350; Contrast volume: 95 ml; Contrast route: INTRAVENOUS (IV); Other technique: Axial images are available with sagittal and coronal reconstruction views. Automated dose exposure control is utilized. The DLP is 330.39. REPORTING DATA: Count of CT and Cardiac NM exams in prior 12 months: This patient has received 0 known CTs and 0 known cardiac nuclear medicine studies in the 12 months prior to the current study. COMPARISON: 1. CT abdomen pelvis w con* [id number] 12/12/2021 11:[address] abdomen pelvis w con* [id number] 03/22/2021 6:[address] kidney stone [id number] 11/15/2016 2:13 AM RADIATION DOSE METRICS: Total DLP (mGy-cm): 330.39 FINDINGS: Lungs: No lobar consolidation is appreciated. Liver: There is some hepatic steatosis appearance overall. Gallbladder and bile ducts: No radiopaque obstructive calculus or biliary ductal dilatation is appreciated. Pancreas: No interval pancreatic ductal dilatation or calcification is appreciated. Spleen: Unremarkable. Adrenal glands: Unremarkable. Kidneys and ureters: There appears to be slight cortical thinning of the left upper pole with subtle lower overall contrast density. There is otherwise homogeneous renal parenchymal enhancement with no interval radiopaque obstructive calculus or hydronephrosis appreciated. There is some extrarenal pelvis appearance similar overall. Stomach and bowel: There is a small sliding-type hiatal hernia demonstrated with slight gastroesophageal fold thickening. Some aspects of the colon are undistended. This may also be peristaltic related.There is some stool present limiting mucosal detail evaluation.The bowel gas pattern appears nonobstructive. Appendix: The appendix diameter is borderline at approximately 7.5 mm and appears increased in the interval with no focal adjacent fluid collections currently appreciated. Intraperitoneal space: No free air or free fluid collections are appreciated. Vasculature: There are atherosclerotic aortic calcifications and branch vessel calcifications with no interval aortic saccular aneurysmal dilatation or intimal irregularity appreciated. There appears to be some overall renal arterial and venous luminal contrast present although smaller overall caliber appearance of the left otherwise limited. Lymph nodes: There are subcentimeter predominant para-aortic and mesenteric lymph nodes overall present. Urinary bladder: The bladder is incompletely fluid filled for evaluation which may exagerate the wall thickness. This can also be seen with post inflammation sequela. Reproductive: There are hysterectomy changes present. Bones/joints: Osseous alignment is maintained.No interval displaced fracture or dislocation is appreciated. There are some degenerative changes of the hips with slight osteochondrosis type appearance right more so than left. Soft tissues: No radiopaque foreign body or subcutaneous emphysema is appreciated. Other findings: There is some motion artifact present. No other significant interval changes are appreciated. CT/CT abdomen pelvis w con* [id number] IMPRESSION: 1. No inflammatory stranding or fluid changes are appreciated although the appendix diameter appears subtly increased in the interval at approximately 7.5 mm with no interval luminal air. This could represent secretion or peristaltic averaging although some very early inflammation could also present in this fashion. 2. There is asymmetrically lower overall contrast attenuation along with some interval cortical thinning of the left renal upper pole. Although this could be seen with processes including inflammation and pyelonephritis the distribution and cortical thinning could also be seen with some perfusion or ischemia related changes. There does appear to be some arterial and venous contrast within the lumen although smaller overall vascular caliber is appreciated on the left. Consider dedicated CTA. 3. There is incomplete distention which may be peristaltic related versus some chronic colitis of the rectosigmoid and proximal descending colon. No adjacent fluid collections or stranding changes are currently appreciated.
[2023-03-30] MEDS: iohexol 350 mg/mL 500 mL Btl (per mL) PO (08:13)
[2023-03-30] MEDS: iohexol 350 mg/mL 500 mL Btl (per mL) IV (08:26)
== END 2023-03-30 07:05 | disposition home or self-care (01) ==
PROVIDERS: PCP Family Medicine; Visit Provider Nurse Practitioner Family
DX: R10.31 Right lower quadrant pain (principal); R19.7 Diarrhea, unspecified; Z85.038 Personal history of other malignant neoplasm of large intestine; Z85.3 Personal history of malignant neoplasm of breast
CPT/HCPCS: 74177; Q9967

== ENCOUNTER → 2023-04-02 13:42 | Outpatient (BNVA) | payer MEDICARE, SELFPAY | PROVIDERS: PCP Family Medicine; Visit Provider Nurse Practitioner Family | DX: R19.7 Diarrhea, unspecified (principal) | CPT/HCPCS: 83630; 87338; 87493; 87506 ==

== ENCOUNTER → 2023-04-30 12:14 | Outpatient (BNVA) | payer MEDICARE, SELFPAY | PROVIDERS: PCP Family Medicine; Visit Provider Nurse Practitioner Family | DX: R19.7 Diarrhea, unspecified (principal) | CPT/HCPCS: 87338 ==

== ENCOUNTER → 2023-05-07 09:51 | Outpatient (BNVA) | payer MEDICARE, MEDICAID, SELFPAY | PROVIDERS: PCP Family Medicine; Visit Provider Surgery | DX: R10.31 Right lower quadrant pain (principal); C21.1 Malignant neoplasm of anal canal | CPT/HCPCS: 99203; 99214 ==

== ENCOUNTER 2023-05-10 10:52 | Outpatient (CLI) | payer MEDICARE, MEDICAID, SELFPAY ==
--- NOTE | 2023-05-10 11:04 | CT_ITS ---
WS: [id number] CTA ABDOMEN TECHNIQUE: Noncontrast plus contrast enhanced CTA of the abdominal aorta with coronal and sagittal re formatted images and additional MIP Images. CLINICAL INFORMATION: R93.422 - Abnormal radiologic findings on diagnostic imag... COMPARISON: CT 03/30/2023 DLP: 219.[address] scans at [facility] use at least one of these dose optimization techniques: automated e xposure control; mA and/or kV adjustment per patient size (includes targeted exams where dose is matc hed to clinical indication); or iterative reconstruction. FINDINGS: Normal caliber abdominal aorta. Moderate aortic atheromatous disease. Mild narrowing of the distal ab dominal aorta due to peripheral mural thrombus and atheromatous disease. Calcification proximal iliac arteries. Celiac and SMA are patent. RIGHT renal artery is patent. Small LEFT renal artery with accessory LEFT renal artery. Severe stenosis of the LEFT renal artery origin with mild to moderate stenosis involvin g the accessory LEFT renal artery. Decreased enhancement involving the LEFT upper pole and mid LEFT k idney similar to the prior examination. No hydronephrosis. Recommend correlation with renal function and endovascular or vascular surgery consultation Lung bases are well aerated. Hepatomegaly. Normal RIGHT renal parenchymal enhancement. Adrenal glands are normal. Normal GE junction. Normal spleen. Normal pancreatic parenchymal enhancement. Tiny fat-containing umbilical hernia. Pelvis is not included on this examination. IMPRESSION: 1. Severe stenosis involving the LEFT renal artery with an accessory renal artery with mild to moder ate narrowing. 2. Decreased enhancement involving the mid and upper pole LEFT kidney compatible with decreased perf usion and ischemia. Recommend correlation with renal function and endovascular or vascular surgery co nsultation 3. Normal RIGHT renal enhancement 4. Moderate atheromatous disease distal abdominal aorta with mild narrowing. Bilateral common iliac artery atheromatous disease and calcification. 5. Hepatomegaly. 6. No other acute findings.
[2023-05-10] MEDS: iohexol 350 mg/mL 500 mL Btl (per mL) IV (11:35)
== END 2023-05-10 10:53 | disposition home or self-care (01) ==
PROVIDERS: PCP Family Medicine; Visit Provider Nurse Practitioner Family
DX: R93.422 Abnormal radiologic findings on diagnostic imaging of left kidney (principal); I70.1 Atherosclerosis of renal artery; I70.0 Atherosclerosis of aorta; I70.8 Atherosclerosis of other arteries; R16.0 Hepatomegaly, not elsewhere classified
CPT/HCPCS: 74175; Q9967

== ENCOUNTER → 2023-05-12 14:49 | Outpatient (BNVA) | payer MEDICARE, SELFPAY | PROVIDERS: PCP Family Medicine; Visit Provider Internal Medicine Cardiovascular Disease | DX: R07.9 Chest pain, unspecified (principal) | CPT/HCPCS: 93005; 99214 ==

== ENCOUNTER → 2023-05-27 11:09 | Outpatient (BNVA) | payer MEDICARE, SELFPAY | PROVIDERS: PCP Family Medicine; Referring Provider Nurse Practitioner Family; Visit Provider Thoracic Surgery (Cardiothoracic Vascular Surgery) | DX: I70.1 Atherosclerosis of renal artery (principal) | CPT/HCPCS: 99203 ==

== ENCOUNTER 2023-06-07 12:15 | Observation (INO) | payer MEDICARE, SELFPAY ==
[2023-06-07] VITALS (24 sets, daily range): BP systolic 89–203; BP diastolic 62–149; PULSE 75–169; RESP 12–29; TEMP 36.5–36.7; O2SAT 93–100; BMI 23.5
--- NOTE | 2023-06-07 12:25 | ECG_ITS ---
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 Measurements Intervals [place] Rate: 143 P: 76 DE: 117 QRS: 64 QRSD: 71 T: 73 QT: 309 QTc: 477 Interpretive Statements SINUS TACHYCARDIA WITH SHORT DE INTERVAL, POSSIBLE ATRIAL FLUTTER ST DEPRESSION, CONSIDER SUBENDOCARDIAL INJURY [0.1+ mV ST DEPRESSION] Compared to ECG 05/12/2023 14:54:18 Sinus rhythm no longer present ST (T wave) deviation still present Electronically Signed On 06-07-2023 21:29:43 CDT by Asmita Escobar M.D. [email or web address]
--- NOTE | 2023-06-07 12:38 | ED_ITS ---
HPI - Headache General: Chief Complaint: Headache Stated Complaint: headache, n/v, arms/hands locking/tingling Time Seen by Provider: 06/07/23 12:33 Source: patient Mode of arrival: ambulatory Limitations: no limitations History of Present Illness: 58-year-old female states that she has had a headache over the last 2 days she states it began gradually and is worsened today states her headaches currently 9 out of 10 she is feeling quite anxious as well she has a history of hypertension she is quite hypertensive here as well. She had nausea and vomiting she states she has had headaches in the past. Denies any neck pain or fever Associated symptoms: Reports nausea and vomiting; Deny chest pain, fever(s) or rash Review of Systems Const: Denies: fever(s) or chills ENMT: Denies: throat pain or dental pain Card: Denies: chest pain Resp: Denies: dyspnea GI: Reports: nausea and vomiting; Denies: abdominal pain or diarrhea Musc: Denies: neck pain or back pain Skin/Breast: Denies: rash Neuro: Reports: headache(s) PFS ED PFSH: Medical History (Updated 06/07/23 @ 15:33 by Derrell Yang MD) Arm fracture, left fx left elbow Colitis Depression Gastro-esophageal reflux History of anal cancer (~2016) stage II (T2, N0, M0). History of breast cancer (~1999) stage IIA (T1c, pN1, M0), ER positive/CO negative and HER-2/pawan negative. Hyperlipidemia Hypertension Hypothyroid Small fiber neuropathy Squamous cell carcinoma of anal canal Status post chemoradiation Vitamin A deficiency Surgical History (Updated 06/07/23 @ 15:32 by Derrell Yang MD) H/O laparoscopy Both ovaries removed-- due to continued pain H/O total mastectomy (~1999) Right-- ER +/ CO - HER 2 neg H/O wrist surgery Left H/O: hysterectomy (~1996) [place], B/L salpingectomy--due to pelvic pain; [place] History of colonoscopy with polypectomy (07/31/21) History of elbow surgery Family History Grandmother Breast cancer Paternal grandmother age unknown Sister Uterine cancer dx'd in late 20s Father Heart disease Hyperlipidemia Hypertension Mother Diabetes Denies family history of Stroke Social History Smoking and tobacco status: current every day smoker (has [place]) Additional social history: - Tobacco use: Denies Alcohol use: Denies Drug use: Marijuana use Physical Exam Const: COMMON NORMALS: no acute distress, patient oriented x3 and healthy appearing HENMT: COMMON NORMALS: normocephalic and atraumatic HEAD & SCALP: normocephalic and atraumatic Eye: COMMON NORMALS: Equal, round and reactive pupils present and EOMs intact bilaterally PUPIL: Yes Equal, round and reactive pupils present Neck/C-Spine: COMMON NORMALS: full ROM and supple Chest: COMMONS NORMALS: normal inspection of the chest and normal palpation of entire chest wall Resp: COMMON NORMALS: normal respiratory effort, No retractions, No use of accessory muscles and clear to auscultation bilaterally AUSCULTATION: clear to auscultation bilaterally Cardio: COMMON NORMALS: regular rate, regular rhythm and No murmurs present (Cardio) RATE: regular rate RHYTHM: regular rhythm GI: COMMON NORMALS: Normal to inspection, nondistended, normoactive bowel sounds present, Soft to palpation, non-tender and no masses PALPATION: Yes Soft to palpation Extremity: COMMON NORMALS: normal to inspection and full ROM Neuro: COMMON NORMALS: patient oriented x3, moves all extremities and no focal motor deficits Psych: COMMON NORMALS: mental status grossly normal, Normal thought process present and cooperative THOUGHT PROCESS: Normal thought process present Skin: COMMON NORMALS: no rashes or lesions noted and no wounds GENERAL SKIN EXAM: no rashes or lesions noted Course Vital Signs: Vital signs: Vital Signs Temperature 97.7 F 06/07/23 12:18 Pulse Rate 96 06/07/23 14:30 Respiratory Rate 17 06/07/23 14:30 Blood Pressure 174/112 06/07/23 14:30 Pulse Oximetry 96 06/07/23 14:30 Oxygen Delivery Me thod Room Air 06/07/23 12:45 MDM - Headache Medical Decision Making Patient presents here with headache likely from hypertension her headache has resolved as her blood pressure improves but she keeps getting rebound hypertension have given her multiple IV meds and blood pressure will initially improved but then bounces back did start her on a Cardene drip for hypertensive emergency she did have an anion gap on initial electrolytes likely due to her vomiting it resolved after IV fluids she does have some hypokalemia as well we will treat with oral potassium. She has no signs of subarachnoid hemorrhage head CT was normal I spoke to the hospitalist will admit to the ICU on the Cardene drip. Medical Records I reviewed the patient's medical records. Lab Data I reviewed the patient's lab results. 06/07/23 12:47 06/07/23 14:38 Laboratory Results WBC 12.18 10^3/uL (3.29-11.43) H 06/07/23 12:47 RBC 4.60 10^6/uL (3.85-5.65) 06/07/23 12:47 Hgb 14.60 g/dL (11.27-16.99) 06/07/23 12:47 Hct 41.8 % (36-47) 06/07/23 12:47 MCV 90.9 fl (85-98) 06/07/23 12:47 MCH 31.7 pg (27-33) 06/07/23 12:47 MCHC 34.9 g/dL (30-55) 06/07/23 12:47 RDW 11.9 % (12.1-15.1) L 06/07/23 12:47 Plt Count 350 10^3/cmm (157-399) 06/07/23 12:47 MPV 8.7 fL (7.4-10.4) 06/07/23 12:47 Neut % (Auto) 63.3 % 06/07/23 12:47 Lymph % (Auto) 29.6 % 06/07/23 12:47 [place] % (Auto) 6.1 % 06/07/23 12:47 Eos % (Auto) 0.4 % 06/07/23 12:47 Baso % (Auto) 0.3 % 06/07/23 12:47 Neut # (Auto) 7.71 10^3/uL (1.8-7.7) H 06/07/23 12:47 Lymph # (Auto) 3.6 10^3/uL (0.8-4.8) 06/07/23 12:47 [place] # (Auto) 0.7 10^3/uL (0.2-0.9) 06/07/23 12:47 Eos # (Auto) 0.1 10^3/uL (0.0-0.8) 06/07/23 12:47 Baso # (Auto) 0.0 10^3/uL (0.0-0.1) 06/07/23 12:47 Nucleated RBC % (auto) 0 % 06/07/23 12:47 Nucleated RBCs # 0.0 /100WBC 06/07/23 12:47 Sodium 136 mmol/L (136-145) 06/07/23 14:38 Potassium 2.7 mmol/L (3.5-5.1) L* 06/07/23 14:38 Chloride 99 mmol/L (98-107) 06/07/23 14:38 Carbon Dioxide 22 mmol/L (22-29) 06/07/23 14:38 Anion Gap 17.7 (5-19) 06/07/23 14:38 BUN 11 mg/dL (6-20) 06/07/23 14:38 Creatinine 1.0 mg/dL (0.5-0.9) H 06/07/23 14:38 GFR Calculation 57.4 mL/min (90-130) L 06/07/23 14:38 Glucose 145 mg/dL (65-115) H 06/07/23 14:38 Calculated Osmolality 284 mOsm/kg (285-295) L 06/07/23 14:38 Calcium 8.9 mg/dL (8.5-10.5) 06/07/23 14:38 Total Bilirubin 0.4 mg/dL (0.15-1.2) 06/07/23 12:47 AST 61 U/L (0-32) H 06/07/23 12:47 ALT 62 U/L (0-33) H 06/07/23 12:47 Alkaline Phosphatase 69 U/L (35-105) 06/07/23 12:47 Troponin T Baseline 10 ng/L (0-10) 06/07/23 12:47 Troponin T 120 Minute 12.06 ng/L (0-10) H 06/07/23 14:38 Delta Troponin T 2.06 ABS# (0-10) 06/07/23 14:38 Total Protein 8.6 g/dL (6.6-8.7) 06/07/23 12:47 Albumin 5.1 g/dL (3.5-5.2) 06/07/23 12:47 Globulin 3.5 g/dL (1.3-4.6) 06/07/23 12:47 All radiology interpretation(s) finalized by discharge EKG Data EKG 1: I personally reviewed and interpreted this EKG as follows: EKG interpretation date: 06/07/23 EKG interpretation time: 12:25 Interpretation: sinus tach hr [address] or t wave abnormalities qrs 71 qtc 392 Critical Care Time Critical Care Time: Critical Care Time: Yes Total Critical Care Time: 50 Attestation: The high probability of a clinically significant, sudden or life threatening deterioration of the patient's cv system(s) required my full and direct attention, intervention and personal management. The critical care time is as shown. 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
[2023-06-07] MEDS: diphenhydrAMINE 50 mg/mL SDV 1mL IVP (12:39)
[2023-06-07] MEDS: labetalol 5 mg/mL SDV 20mL 10 MG IVP (12:40)
[2023-06-07] MEDS: metoclopramide 5 mg/mL SDV 2 mL 10 MG IVP (12:40)
[2023-06-07 12:57] LABS: Basophils % 0.3 %; Eosinophils # 0.1 10^3/uL (0.0-0.8); Eosinophils % 0.4 %; Hematocrit 41.8 % (36-47); Lymphocytes # 3.6 10^3/uL (0.8-4.8); Lymphocytes % 29.6 %; Mean Corpuscular HGB Conc 34.9 g/dL (30-55); Mean Corpuscular Hemoglobin 31.7 pg (27-33); Mean Corpuscular Volume 90.9 fl (85-98); Mean Platelet Volume 8.7 fL (7.4-10.4); Monocytes # 0.7 10^3/uL (0.2-0.9); Monocytes % 6.1 %; Neutrophils # 7.71 10^3/uL (1.8-7.7); Neutrophils % 63.3 %; Nucleated Red Blood Cells % 0 %; Platelet Count 350 10^3/cmm (157-399); Red Cell Distribution Width 11.9 % (12.1-15.1); White Blood Count 12.18 10^3/uL (3.29-11.43)
--- NOTE | 2023-06-07 13:01 | CT_ITS ---
WS: [id number] CT HEAD TECHNIQUE: Noncontrast CT of the head obtained from the skullbase to the vertex. CLINICAL INFORMATION: re[place] COMPARISON: MRI 2021 DLP: 1019.36 mgy/cm All CT scans at [facility] use at least one of these dose optimization techniques: automated e xposure control; mA and/or kV adjustment per patient size (includes targeted exams where dose is matc hed to clinical indication); or iterative reconstruction. FINDINGS: No evidence of intracranial hemorrhage or mass effect. Ventricular system and basal cisterns are garcia nt. No extra-axial fluid collections. No evidence of mass or mass effect. Normal rosas-white different iation. Paranasal sinuses and mastoid air cells are well aerated. .Normal visualized soft tissues. Normal pos terior nasopharynx. Normal parapharyngeal fat. IMPRESSION: 1. No evidence of intracranial hemorrhage or mass effect. 2. No acute intracranial findings.
[2023-06-07 13:12] LABS: Alanine Aminotransferase 62 U/L (0-33); Albumin Level 5.1 g/dL (3.5-5.2); Alkaline Phosphatase 69 U/L (35-105); Aspartate Amino Transferase 61 U/L (0-32); Blood Urea Nitrogen 10 mg/dL (6-20); Carbon Dioxide 16 mmol/L (22-29); Chloride 96 mmol/L (98-107); Globulin 3.5 g/dL (1.3-4.6); Glomerular Filtration Rate 42.4 mL/min (90-130); Glucose 193 mg/dL (65-115); Osmolality Calculated 290 mOsm/kg (285-295); Sodium 138 mmol/L (136-145); Total Bilirubin 0.4 mg/dL (0.15-1.2); Total Protein 8.6 g/dL (6.6-8.7)
[2023-06-07] MEDS: HYDROmorphone 1 mg/mL INJ 1 mL IVP (13:24)
[2023-06-07] MEDS: hyDRALAzine 20 mg/mL INJ 1 mL 10 MG IVP (13:54)
[2023-06-07] MEDS: sodium chloride 0.9% 1,000 ML 999 ML IV (13:55)
--- NOTE | 2023-06-07 14:02 | PC.PHAR ---
pt states she takes care of her own medications-pt states she is still taking effexor er 150mg hs ext shows last filled 02/12/23 90d/s-pt states she is taking prilosec 40mg daily ext med history shows last filled 05/15/23 90d/s-pt states she takes vitamin c ,vitamin b12 and mag ox prn-
[2023-06-07] MEDS: labetalol 5 mg/mL SDV 20mL 20 MG IVP (14:14)
[2023-06-07 14:43] LABS: Troponin(5th) Baseline 10 ng/L (0-10)
[2023-06-07 15:08] LABS: Anion Gap 17.7 (5-19); Blood Urea Nitrogen 11 mg/dL (6-20); Calcium 8.9 mg/dL (8.5-10.5); Carbon Dioxide 22 mmol/L (22-29); Chloride 99 mmol/L (98-107); Glomerular Filtration Rate 57.4 mL/min (90-130); Glucose 145 mg/dL (65-115); Osmolality Calculated 284 mOsm/kg (285-295); Sodium 136 mmol/L (136-145)
[2023-06-07 15:09] LABS: Troponin 5 2HR 12.06 ng/L (0-10)
[2023-06-07 15:23] LABS: Potassium 2.7 mmol/L (3.5-5.1)
[2023-06-07 15:26] LABS: Troponin 5 2HR Delta 2.06 ABS# (0-10)
--- NOTE | 2023-06-07 15:31 | P.HP_ITS ---
Providers/Chief Complaint Primary Care Provider: Poly Barlow MD Chief Complaint: headache, n/v, arms/hands locking/tingling History of Present Illness Zee Yancey is a 58 year old female Review of Systems General: Reports: 10 or more systems reviewed and unremarkable except in HPI and below Const: Denies: fever(s), chills, body aches, change in appetite, change in weight, malaise, night sweats, diaphoresis, change in sleep pattern, daytime sleepiness or snoring Eyes: Denies: change in vision, blurry vision, photophobia, eye discomfort or eye discharge ENMT: Denies: throat pain, enlarged tonsils, hoarseness, mouth pain, oral sores, dry mouth, tinnitus, nasal congestion or post nasal drip Card: Denies: chest pain, palpitations, irregular heart rhythm, edema, swelling of feet/ankles, lightheadedness, syncope, pre-syncope, dyspnea on exertion, orthopnea, leg pain with exertion or acrocyanosis Resp: Denies: dyspnea, productive cough, non-productive cough, wheezing, stridor, pain on inspiration, change in phlegm color, hemoptysis or chest congestion GI: Denies: abdominal pain, nausea, vomiting, hematemesis, coffee ground emesis, dysphagia, heartburn, diarrhea, constipation, bloating, GI cramping, change in bowel habits, pain on defecation, hematochezia or melena : Denies: flank pain, dysuria, urinary frequency, urinary urgency, urinary hesitancy, nocturia or hematuria Musc: Denies: neck pain, back pain, extremity pain, joint pain, joint swelling, joint redness, joint stiffness or limited range of motion Neuro: Denies: headache(s), numbness in extremities, weakness in extremities, sensory changes, lack of coordination, difficulty walking, frequent falls, dizziness, vertigo, confusion, Slurred speech present, difficulty communicating thoughts or seizure-like activity Psych: Denies: anxiety, depression, mood swings, panic attacks, hopelessness or irritability Endo: Denies: polyuria, polydipsia, tired all the time, cold intolerance, excessive sweating, flushing or heat intolerance Primitivo/Lymph: Denies: easy bruising or easy bleeding All/Imm: Denies: tongue swelling, facial swelling or acute wheezing Medications/Allergies Home Medications Medication Instructions Recorded Confirmed Last Taken Type fexofenadine 60 mg-pseudoephedrine 1 tab PO Q12H PRN allergy symptoms 04/01/22 06/07/23 Unknown Rx ER 120 mg tablet,ext.release,12 hr #60 tabs (Pamela-D 12 Hour) famotidine 20 mg tablet 20 mg PO DAILY PRN Heartburn 11/12/22 06/07/23 Unknown History meloxicam 15 mg tablet 15 mg PO DAILY #30 tabs 01/27/23 06/07/23 Unknown Rx gabapentin 600 mg tablet 600 mg PO TID #90 tabs 03/09/23 06/07/23 06/07/23 Rx atorvastatin 20 mg tablet 20 mg PO BEDTIME 05/12/23 06/07/23 06/06/23 History diclofenac sodium 1 % topical gel 2 g topical QID PRN Pain 05/12/23 06/07/23 Unknown History (Voltaren Arthritis Pain) ergocalciferol (vitamin D2) 1,250 50,000 unit PO Q7D 05/12/23 06/07/23 06/01/23 History mcg (50,000 unit) capsule (Vitamin D2) levothyroxine 50 mcg tablet 50 mcg PO QAM 05/12/23 06/07/23 06/07/23 History raloxifene 60 mg tablet 60 mg PO DAILY 05/12/23 06/07/23 Unknown History dicyclomine 20 mg tablet 20 mg PO TID #90 tabs 05/13/23 06/07/23 06/07/23 Rx amlodipine 10 mg tablet (Norvasc) 10 mg PO DAILY #30 tabs 06/07/23 Unknown Rx ascorbic acid (vitamin C) 500 mg 500 mg PO DAILY PRN unknown 06/07/23 06/07/23 Unknown History tablet (Vitamin C) cyanocobalamin (vitamin B-12) 1,000 mcg PO DAILY PRN unknown 06/07/23 06/07/23 Unknown History 1,000 mcg tablet (Vitamin B-12) fenofibrate nanocrystallized 145 145 mg PO DAILY 06/07/23 06/07/23 Unknown History mg tablet lisinopril 5 mg tablet 5 mg PO QAM 06/07/23 06/07/23 06/06/23 History magnesium oxide 400 mg PO DAILY PRN unknown 06/07/23 06/07/23 Unknown History metoprolol tartrate 50 mg tablet 50 mg PO BID #60 tabs 06/07/23 Unknown Rx omeprazole 40 mg capsule,delayed 40 mg PO QAM 06/07/23 06/07/23 06/07/23 History release ondansetron 4 mg disintegrating 4 mg PO Q6H PRN nausea and 06/07/23 Unknown Rx tablet vomiting #14 tabs venlafaxine 150 mg 150 mg PO BEDTIME 06/07/23 06/07/23 Unknown History capsule,extended release 24 hr (Effexor XR) Allergies Allergy/AdvReac Type Severity Reaction Status Date / Time propoxyphene AdvReac Mild nightmares Verified 06/07/23 13:54 [From [place]api] PFSH Acute PFSH: Medical History (Updated 06/07/23 @ 15:33 by Derrell Yang MD) Arm fracture, left fx left elbow Colitis Depression Gastro-esophageal reflux History of anal cancer (~2016) stage II (T2, N0, M0). History of breast cancer (~1999) stage IIA (T1c, pN1, M0), ER positive/SD negative and HER-2/pawan negative. Hyperlipidemia Hypertension Hypothyroid Small fiber neuropathy Squamous cell carcinoma of anal canal Status post chemoradiation Vitamin A deficiency Surgical History (Updated 06/07/23 @ 15:32 by Derrell Yang MD) H/O laparoscopy Both ovaries removed-- due to continued pain H/O total mastectomy (~1999) Right-- ER +/ SD - HER 2 neg H/O wrist surgery Left H/O: hysterectomy (~1996) [place], B/L salpingectomy--due to pelvic pain; [place] History of colonoscopy with polypectomy (07/31/21) History of elbow surgery Family History Grandmother Breast cancer Paternal grandmother age unknown Sister Uterine cancer dx'd in late 20s Father Heart disease Hyperlipidemia Hypertension Mother Diabetes Denies family history of Stroke Social History Smoking and tobacco status: current every day smoker (has medical [employer] card) Additional social history: - Tobacco use: Denies Alcohol use: Denies Drug use: Marijuana use Vitals/I&O/Wt Last Vital Signs Temp 97.7 F 06/07/23 12:18 Pulse 96 06/07/23 14:30 Resp 17 06/07/23 14:30 BP 174/112 06/07/23 14:30 Pulse Ox 96 06/07/23 14:30 O2 Del Method Room Air 06/07/23 12:45 Weight last 48 hrs Weight 68.039 kg Physical Exam Narrative: General: No acute distress, AO x3 HEENT: PERRLA, pupils bilaterally equal and reactive Chest: Normal vesicular breath sounds, no added sounds, equal good air entry bilaterally CVS: S1-S2 regular, no murmurs, no tachycardia, no gallops, no rubs Abdomen: Soft, nontender, no organomegaly, bowel sounds present Neuro: No focal deficits, no facial deformity, AO x3, power 5/5 in all limbs Data 06/07/23 12:47 06/07/23 14:38 A&P Assessment and plan (1) Hypertensive urgency: Associated with symptoms of headache. CT head negative for stroke. Troponin cycle negative. Denies any chest pain. Check echocardiogram. Check A1c, appreciate recent lipid panel. Goal blood pressure 25% less then presenting blood pressure of 200 systolic. We will plan to keep goal for blood pressure up to 160 systolics for now. Wean nicardipine drip accordingly. Uptitrate oral medications. Increase dose of metoprolol to 75 mg twice daily, add amlodipine 10 mg daily, hydralazine 50 mg 3 times daily. Given renal artery stenosis with RAKESH on admission we will hold off on LARISSA inhibitor for now. We will try to add a low-dose prior to discharge depending on kidney functions. (2) Renal artery stenosis, [place]: Known history. Follows with Dr. Issa. To follow-up with an outpatient vascular surgeon. Has appointment to see a vascular surgeon on June 23 at [place]. (3) Headache: (4) Hypothyroid: Check TSH. Continue home dose of levothyroxine. (5) Hyperlipidemia: (6) Mitral valve prolapse: (7) Hypokalemia: (8) Acute kidney injury: Most likely in setting of LARISSA inhibitor, renal artery stenosis and hypertensive urgency. Gentle IV hydration with normal saline and 20 mg potassium at 50 cc/h. Monitor renal functions daily. Strict input output charting. Plan Xanax 0.5 3 times daily as needed for anxiety. Full code Cardiac diet Heparin 5000 every 12 hourly for DVT prophylaxis Protonix IV for PUD prophylaxis Attestations Medical Necessity Statement*: Admission for more than 2 midnights for management of hypertensive urgency in setting of left renal artery stenosis while nicardipine is weaned off and oral antihypertensives were adjusted Coding Level of Care Code Critical Care >/= 30 minutes Critical care time (in minutes): 60 Diagnoses Hypertensive urgency I16.0 Renal artery stenosis, [place] I70.1 Headache R51.9 Hypothyroid E03.9 Hyperlipidemia E78.5 Mitral valve prolapse I34.1 Hypokalemia E87.6 Acute kidney injury N17.9
[2023-06-07] MEDS: potassium chloride ER 20 mEq Tablet 80 MEQ PO (15:34)
[2023-06-07] MEDS: hyDRALAzine 50 mg Tablet PO ×2 (15:35→20:00)
[2023-06-07] MEDS: amlodipine 10 mg Tablet PO (15:35)
--- NOTE | 2023-06-07 15:47 | ECG_ITS ---
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 Measurements Intervals [place] Rate: 141 P: 56 NC: 100 QRS: 49 QRSD: 69 T: 57 QT: 323 QTc: 496 Interpretive Statements SINUS TACHYCARDIA WITH SHORT NC INTERVAL, POSSIBLE ATRIAL FLUTTER NONSPECIFIC ST & T-WAVE ABNORMALITY ABNORMAL RHYTHM ECG Compared to ECG 06/07/2023 12:25:12 T-wave abnormality now present ST (T wave) deviation no longer present Electronically Signed On 06-07-2023 21:34:20 CDT by Asmita Escobar M.D. [id number]
[2023-06-07] MEDS: heparin 5,000 unit/mL INJ 1 mL 5000 UNIT SUBCUT (16:28)
[2023-06-07] MEDS: pantoprazole 40 mg SDV IVP (16:28)
[2023-06-07] MEDS: nicardipine 20 MG/200 ML PREMIX 100 MG IV (16:28)
[2023-06-07] MEDS: sodium chlor 0.9% + KCl 20 mEq 20 MEQ/1,000 ML BAG 100 MEQ IV (16:29)
[2023-06-07 16:50] LABS: Iron 96 ug/dL (37-145); Percent Saturation 24.4 % (20-50); Thyroid Stimulating Hormone 3.51 uIU/mL (0.27-4.20); Total Iron Binding Capacity 393 mcg/dl; Unsaturated Iron Binding 297 ug/dL (112-347); Vitamin B12 385 pg/mL (232-1245)
--- NOTE | 2023-06-07 17:25 | USCV_ITS ---
Zee Yancey Age: 58 Gender: F : 1965 Exam Date: 06/08/2023 01:33 Ordering Phys: Derrell Yang MD Technologist: VIKAS Exam Location: [facility] [place] Indication: HTN urgency. No history of cardiac intervention per patient. BP: 128 / 88 HR: 95 Rhythm: Sinus Technical Quality: Adequate MEASUREMENTS (Male / Female) Normal Values 2D ECHO LV Diastolic Diameter PLAX 3.1 cm 4.2 - 5.9 / 3.9 - 5.3 cm LV Systolic Diameter PLAX 2.1 cm IVS Diastolic Thickness 2.0 cm 0.6 - 1.0 / 0.6 - 0.9 cm IVS Systolic Thickness 2.0 cm LVPW Diastolic Thickness 1.4 cm 0.6 - 1.0 / 0.6 - 0.9 cm LVPW Systolic Thickness 1.8 cm LVOT Diameter 1.9 cm LV Ejection Fraction 2D Teich 61.9 % LV Ejection Fraction MOD 2C 54.6 % LV Ejection Fraction 2C AL 54.4 % LA Diameter 3.1 cm LA Width 3.0 cm LA Height 4.1 cm RA Width 2.1 cm RA Height 2.7 cm Aorta at Sinotubular Diameter 2.1 cm IVC Diameter 1.2 cm M-MODE Aortic Annulus Diameter 2.7 cm LA Ao Ratio MM 1.3 MV E Point Septal Separation 0.4 cm DOPPLER AV Peak Velocity 111.0 cm/s LVOT Peak Velocity 80.0 cm/s AV Area Cont Eq vti 1.6 cm squared AV Area Cont Eq pk 2.0 cm squared MV Peak Velocity 127.0 cm/s MV Area PHT 3.9 cm squared Mitral E to A Ratio 0.8 MV E' Velocity 50.5 cm/s Mitral E to MV E' Ratio 14.0 Mitral E to LV E' Lateral Ratio 15.4 Mitral E to LV E' Septal Ratio 13.1 TV Peak E Velocity 43.0 cm/s PV Peak Velocity 82.0 cm/s RV Acceleration Time 0.1 s RV Ejection Time 0.3 s RV AcT/ET 0.3 FINDINGS Left Ventricle Normal size. LV systolic function is normal with EF of 55 to 60%. No regional wall motion abnormalities are seen. Grade 1 disatolic dysfunction Right Ventricle The right ventricle is normal in size and function. Right Atrium The right atrium is normal in size. Left Atrium The left atrium is normal in size. Mitral Valve Structurally normal mitral valve. Trace mitral regurgitation. Aortic Valve Structurally normal aortic valve. No significant stenosis or regurgitation. Tricuspid Valve Mild tricuspid regurgitation. Insufficient TR jet to evaluate RVSP. Pulmonic Valve Not well-visualized Pericardium Normal pericardium without effusion. Aorta Normal ascending aorta dimension. IVC The inferior vena cava appears normal. CONCLUSIONS LV systolic function is normal with EF of 55-60% Grade 1 diastolic dysfunction Trace mitral regurgitation Mild tricuspid regurgitation No comparison studies are available. Chalino Landin MD (Electronically Signed) Final Date: 08 June 2023 09:49 S
[2023-06-07 19:28] LABS: Troponin 5 6HR 16.41 ng/L (0-10)
[2023-06-07 19:29] LABS: Troponin 5 6HR Delta 6.41 ng/L (0-12)
[2023-06-07] MEDS: morphine 4 mg/mL SDV 1 mL 2 MG IVP (19:34)
[2023-06-07] MEDS: metoprolol tartrate 50 mg Tablet 75 MG PO (20:00)
[2023-06-07] MEDS: gabapentin 300 mg Capsule 600 MG PO (20:00)
[2023-06-07] MEDS: atorvastatin 40 mg Tablet 20 MG PO (20:00)
[2023-06-07] MEDS: venlafaxine ER (24HR) 150 mg Capsule PO (20:00)
--- NOTE | 2023-06-07 21:26 | ECG_ITS ---
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 Measurements Intervals [place] Rate: 103 P: 35 ID: 120 QRS: 27 QRSD: 81 T: 6 QT: 360 QTc: 472 Interpretive Statements SINUS TACHYCARDIA POSSIBLE RIGHT VENTRICULAR CONDUCTION DELAY [RSR (QR) IN V1/V2] MODERATE ST DEPRESSION [0.05+ mV ST DEPRESSION] Compared to ECG 06/07/2023 17:49:06 ST (T wave) deviation now present T-wave abnormality no longer present Electronically Signed On 06-07-2023 21:31:21 CDT by Asmita Escobar M.D. [id number]
[2023-06-07 23:08] LABS: Bilirubin Urine Neg (Negative); Blood Urine 3+ (Negative); Glucose Urine UA Norm (Normal); Ketones Urine Negative (Negative); Leukocyte Esterase Urine Negative (Negative); Nitrate Urine Negative (Negative); Protein Urine Neg (Negative); Sulfosalicylic Acid Urine Negative (Negative); Urine Appearance Clear (CLEAR); Urine Color Light yellow (Yellow); Urobilinogen Urine Norm (Negative); pH Urine 8 (5-7)
[2023-06-07 23:09] LABS: Add Urine Culture? No; Add Urine Microscopic? YES; Bacteria Urine TRACE /hpf; RBC Urine 0-4 /hpf (0-2); Squamous Epithelial Cell Urine 0-4 /hpf (0-5); WBC Urine 0-4 /hpf (0-5)
[2023-06-08] VITALS (209 sets, daily range): BP systolic 96–191; BP diastolic 66–116; PULSE 78–129; RESP 10–33; TEMP 36.6–37.6; O2SAT 96–99
[2023-06-08] MEDS: sodium chlor 0.9% + KCl 20 mEq 20 MEQ/1,000 ML BAG 100 MEQ IV (03:46)
[2023-06-08] MEDS: heparin 5,000 unit/mL INJ 1 mL 5000 UNIT SUBCUT ×2 (05:01→15:39)
[2023-06-08] MEDS: levothyroxine 50 mcg Tablet PO (05:01)
[2023-06-08 05:54] LABS: Basophils % 0.3 %; Eosinophils % 0.3 %; Hematocrit 39.3 % (36-47); Lymphocytes # 3.4 10^3/uL (0.8-4.8); Lymphocytes % 29.1 %; Mean Corpuscular HGB Conc 33.6 g/dL (30-55); Mean Corpuscular Hemoglobin 31.1 pg (27-33); Mean Corpuscular Volume 92.5 fl (85-98); Mean Platelet Volume 8.9 fL (7.4-10.4); Monocytes # 0.8 10^3/uL (0.2-0.9); Neutrophils # 7.32 10^3/uL (1.8-7.7); Neutrophils % 63.1 %; Nucleated Red Blood Cells % 0 %; Platelet Count 304 10^3/cmm (157-399); Red Blood Count 4.25 10^6/uL (3.85-5.65); Red Cell Distribution Width 12.1 % (12.1-15.1); White Blood Count 11.58 10^3/uL (3.29-11.43)
[2023-06-08 06:05] LABS: Estmated Average Glucose 117; Hemoglobin A1C 5.7 % (4.0-6.0)
[2023-06-08 06:19] LABS: Alanine Aminotransferase 57 U/L (0-33); Albumin Level 4.3 g/dL (3.5-5.2); Alkaline Phosphatase 57 U/L (35-105); Anion Gap 14.8 (5-19); Aspartate Amino Transferase 108 U/L (0-32); Blood Urea Nitrogen 9 mg/dL (6-20); Calcium 8.7 mg/dL (8.5-10.5); Carbon Dioxide 21 mmol/L (22-29); Chloride 107 mmol/L (98-107); Globulin 3.1 g/dL (1.3-4.6); Glomerular Filtration Rate 64.8 mL/min (90-130); Glucose 121 mg/dL (65-115); Osmolality Calculated 288 mOsm/kg (285-295); Phosphorus 1.6 mg/dL (2.5-4.5); Potassium 3.8 mmol/L (3.5-5.1); Sodium 139 mmol/L (136-145); Total Bilirubin 0.4 mg/dL (0.15-1.2); Total Protein 7.4 g/dL (6.6-8.7)
[2023-06-08 06:33] LABS: Folate Level < 20.0 ng/mL (4.8-37.3)
[2023-06-08] MEDS: amlodipine 10 mg Tablet PO (08:23)
[2023-06-08] MEDS: fenofibrate 145 mg Tablet PO (08:23)
[2023-06-08] MEDS: hyDRALAzine 50 mg Tablet PO ×3 (08:23→20:13)
[2023-06-08] MEDS: gabapentin 300 mg Capsule 600 MG PO ×3 (08:23→20:13)
[2023-06-08] MEDS: metoprolol tartrate 50 mg Tablet 75 MG PO ×2 (08:26→20:14)
--- NOTE | 2023-06-08 15:04 | P.PN_ITS ---
Subjective Subjective: No acute events overnight. Nicardipine drip was weaned of late last night. Patient did have some elevated blood pressure earlier in the morning but resolved with oral antihypertensives. Appropriate urine output. Having 2-3 episodes of diarrhea bowel movements. Blood work shows stable CBC, CMP showing resolution of hypokalemia, creatinine 0.9, A1c 5.7. Vitals/I&O/Wt Last Vital Signs Temp 98 F 06/08/23 07:40 Pulse 91 06/08/23 12:30 Resp 16 06/08/23 12:30 BP 138/83 06/08/23 12:30 Pulse Ox 97 06/08/23 12:30 O2 Del Method Room Air 06/08/23 07:42 06/08/23 06/08/23 06/08/23 06:59 14:59 22:59 Intake Total 1280 / 2860 1133.333 / 1133.333 Output Total 800 / 800 Balance 1280 / 2860 333.333 / 333.333 Weight last 48 hrs Weight 68.039 kg Physical Exam Narrative: General: No acute distress, AO x3 HEENT: PERRLA, pupils bilaterally equal and reactive Chest: Normal vesicular breath sounds, no added sounds, equal good air entry bilaterally CVS: S1-S2 regular, no murmurs, no tachycardia, no gallops, no rubs Abdomen: Soft, nontender, no organomegaly, bowel sounds present Neuro: No focal deficits, no facial deformity, AO x3, power 5/5 in all limbs Data 06/08/23 05:05 06/08/23 05:05 A&P Assessment and plan (1) Hypertensive urgency: Associated with symptoms of headache. CT head negative for stroke. Troponin cycle negative. Denies any chest pain. Check echocardiogram. Appreciate A1c and recent blood panel. Goal blood pressure less than 140/90 mmHg. Nicardipine weaned off. For now continue with metoprolol 75 mg twice daily, amlodipine 10 mg daily, hydralazine 50 mg 3 times daily. If needed will add low-dose ARB. Hydralazine 10 mg every 6 hour as needed for systolic blood pressure more than 160 mmHg. Echocardiogram results shows an EF of 60% with grade 1 diastolic dysfunction, trace MR, mild TR (2) Renal artery stenosis, sleetmute: Known history. Follows with Dr. Issa. To follow-up with an outpatient vascular surgeon. Has appointment to see a vascular surgeon on June 23 at [place]. (3) Headache: (4) Hypothyroid: Appreciate TSH. Continue home dose of levothyroxine. (5) Hyperlipidemia: (6) Mitral valve prolapse: (7) Hypokalemia: (8) Acute kidney injury: Resolved. Most likely in setting of LARISSA inhibitor, renal artery stenosis and hypertensive urgency. Stop IV fluids. Monitor renal functions daily. Strict input output charting. Plan Xanax 0.5 3 times daily as needed for anxiety. Full code Cardiac diet Heparin 5000 every 12 hourly for DVT prophylaxis Protonix IV for PUD prophylaxis Transfer to CSU. Attestations Medical Necessity Statement*: Requires further hospitalization for management of hypertensive urgency while oral antihypertensive are adjusted Diagnoses Hypertensive urgency I16.0 Renal artery stenosis, sleetmute I70.1 Headache R51.9 Hypothyroid E03.9 Hyperlipidemia E78.5 Mitral valve prolapse I34.1 Hypokalemia E87.6 Acute kidney injury N17.9
[2023-06-08] MEDS: pantoprazole 40 mg SDV IVP (15:39)
[2023-06-08] MEDS: acetaminophen 325 mg Tablet 650 MG PO (16:16)
[2023-06-08] MEDS: ALPRAZolam 0.5 mg Tablet PO (16:16)
[2023-06-08] MEDS: venlafaxine ER (24HR) 150 mg Capsule PO (20:13)
[2023-06-08] MEDS: atorvastatin 40 mg Tablet 20 MG PO (20:15)
[2023-06-09] VITALS: BP 96/62; PULSE 87; RESP 12; TEMP 37.2; O2SAT 97
[2023-06-09 04:00] VITALS: BP 104/75; PULSE 80; RESP 20; TEMP 36.8; O2SAT 96
[2023-06-09 04:45] LABS: Basophils % 0.3 %; Eosinophils # 0.1 10^3/uL (0.0-0.8); Eosinophils % 0.8 %; Hematocrit 40.8 % (36-47); Lymphocytes # 4.7 10^3/uL (0.8-4.8); Lymphocytes % 49.8 %; Mean Corpuscular HGB Conc 33.6 g/dL (30-55); Mean Corpuscular Hemoglobin 31.4 pg (27-33); Mean Corpuscular Volume 93.6 fl (85-98); Monocytes # 0.5 10^3/uL (0.2-0.9); Monocytes % 5.6 %; Neutrophils # 4.08 10^3/uL (1.8-7.7); Neutrophils % 43.4 %; Nucleated Red Blood Cells % 0 %; Platelet Count 344 10^3/cmm (157-399); Red Blood Count 4.36 10^6/uL (3.85-5.65); White Blood Count 9.42 10^3/uL (3.29-11.43)
[2023-06-09] MEDS: levothyroxine 50 mcg Tablet PO (05:03)
[2023-06-09] MEDS: heparin 5,000 unit/mL INJ 1 mL 5000 UNIT SUBCUT (05:03)
[2023-06-09 05:14] LABS: Alanine Aminotransferase 73 U/L (0-33); Albumin Level 4.9 g/dL (3.5-5.2); Alkaline Phosphatase 63 U/L (35-105); Anion Gap 15.6 (5-19); Aspartate Amino Transferase 153 U/L (0-32); Blood Urea Nitrogen 13 mg/dL (6-20); Calcium 9.9 mg/dL (8.5-10.5); Carbon Dioxide 24 mmol/L (22-29); Chloride 103 mmol/L (98-107); Globulin 3.1 g/dL (1.3-4.6); Glomerular Filtration Rate 51.4 mL/min (90-130); Glucose 103 mg/dL (65-115); Osmolality Calculated 288 mOsm/kg (285-295); Potassium 3.6 mmol/L (3.5-5.1); Sodium 139 mmol/L (136-145); Total Bilirubin 0.5 mg/dL (0.15-1.2)
[2023-06-09 05:36] VITALS: PULSE 79
[2023-06-09 08:00] VITALS: BP 153/92; PULSE 100; RESP 15; O2SAT 98
[2023-06-09] MEDS: amlodipine 10 mg Tablet PO (09:38)
[2023-06-09] MEDS: gabapentin 300 mg Capsule 600 MG PO (09:38)
[2023-06-09] MEDS: fenofibrate 145 mg Tablet PO (09:38)
[2023-06-09] MEDS: hyDRALAzine 50 mg Tablet PO (09:39)
[2023-06-09] MEDS: metoprolol tartrate 50 mg Tablet 75 MG PO (09:39)
[2023-06-09] MEDS: ALPRAZolam 0.5 mg Tablet PO (09:39)
--- NOTE | 2023-06-09 11:26 | P.DS_ITS ---
Discharge Providers Date of Admission: 06/07/23 15:28 Date of Discharge: June 09, 2023 Attending Provider at Admission: Derrell Yang MD Attending Provider at Discharge: Derrell Yang MD Primary Care Provider: Poly Barlow MD Diagnoses at Discharge Discharge Diagnosis (1) Hypertensive urgency: Status: Acute (2) Renal artery stenosis, ewiiaapaayp: Status: Acute (3) Headache: Status: Acute (4) Hypothyroid: Status: Acute (5) Hyperlipidemia: Status: Acute (6) Mitral valve prolapse: Status: Acute (7) Hypokalemia: Status: Acute (8) Acute kidney injury: Status: Acute Reason for Visit Reason for Visit: headache, n/v, arms/hands locking/tingling Hospital Course Hospital Course Zee Yancey is a 58 year old female with PMHx of hyprtension, hyperlipidemia, hypothyroidism, GERD, chronic migraine, allergies and h/o anal cancer and h/o breast cancer, recent diagnosis of left renal stenosis f/b Dr. García for which she is to follow-up with vascular surgeon at [facility] presents to the ER with uncontrolled headache along with nausea. In the ER she was found to have hypertensive urgency with blood pressure going up to 250 systolics which first improved with 2 doses of labetalol and oral amlodipine. While patient was being discharged from the ER her blood pressure spiked again around 200 systolics with patient having headache again so hospitalist service was consulted for further management. Patient denies any chest pain, nausea, vomiting, weakness in any of her arms or limbs. She is complaining of global headache which gets better with lower blood pressures. Patient was admitted to the ICU for further evaluation management of hypertensive urgency and was started on nicardipine drip. Gradually nicardipine drip was weaned off while oral antihypertensives were titrated upwards. Her blood pressures have been stable for last 24 hours. Patient symptoms of headache have resolved. She did have an episode of diarrhea which as per patient is chronic. C. difficile studies were sent off and are pending. Patient's hospitalization was otherwise unremarkable other than 1 spike of low- grade temperature. Respiratory viral panel was sent out. Patient did not have any further constitutional symptoms. She has been discharged in hemodynamically stable condition with adjusted her antihypertensives. She is to take metoprolol 75 mg twice daily, amlodipine 10 mg daily, hydralazine 50 mg 3 times a day. She is to check her blood pressures twice daily and maintain a blood pressure diary and follow-up with a primary care provider within next 10 days for further adjustments of antihypertensives. She can take hydralazine 25 mg twice daily as needed for systolic blood pressure of more than 160 mmHg. She is advised and counseled in detail to keep her appointment with vascular surgeon at [facility]. Physical Exam Narrative: General: No acute distress, AO x3 HEENT: PERRLA, pupils bilaterally equal and reactive Chest: Normal vesicular breath sounds, no added sounds, equal good air entry bilaterally CVS: S1-S2 regular, no murmurs, no tachycardia, no gallops, no rubs Abdomen: Soft, nontender, no organomegaly, bowel sounds present Neuro: No focal deficits, no facial deformity, AO x3, power 5/5 in all limbs Discharge Data Studies Completed and Pending Completed Studies During Hospitalization Category Date Time Status CT head wo con* [id number] Stat Cat Scan 06/07/23 13:01 Completed CV. echo complete* [id number] Routine Ultrasound 06/07/23 17:25 Completed Pending at discharge Category Date Time Status Clostridium Diffi Toxin Reflex Routine Lab 06/08/23 10:27 Received Respiratory Panel 2 Routine Lab 06/09/23 08:43 Uncollected Laboratory Results WBC 9.42 10^3/uL (3.29-11.43) 06/09/23 03:53 RBC 4.36 10^6/uL (3.85-5.65) 06/09/23 03:53 Hgb 13.70 g/dL (11.27-16.99) 06/09/23 03:53 Hct 40.8 % (36-47) 06/09/23 03:53 MCV 93.6 fl (85-98) 06/09/23 03:53 MCH 31.4 pg (27-33) 06/09/23 03:53 MCHC 33.6 g/dL (30-55) 06/09/23 03:53 RDW 12.0 % (12.1-15.1) L 06/09/23 03:53 Plt Count 344 10^3/cmm (157-399) 06/09/23 03:53 MPV 9.0 fL (7.4-10.4) 06/09/23 03:53 Neut % (Auto) 43.4 % 06/09/23 03:53 Lymph % (Auto) 49.8 % 06/09/23 03:53 [place] % (Auto) 5.6 % 06/09/23 03:53 Eos % (Auto) 0.8 % 06/09/23 03:53 Baso % (Auto) 0.3 % 06/09/23 03:53 Neut # (Auto) 4.08 10^3/uL (1.8-7.7) 06/09/23 03:53 Lymph # (Auto) 4.7 10^3/uL (0.8-4.8) 06/09/23 03:53 [place] # (Auto) 0.5 10^3/uL (0.2-0.9) 06/09/23 03:53 Eos # (Auto) 0.1 10^3/uL (0.0-0.8) 06/09/23 03:53 Baso # (Auto) 0.0 10^3/uL (0.0-0.1) 06/09/23 03:53 Nucleated RBC % (auto) 0 % 06/09/23 03:53 Nucleated RBCs # 0.0 /100WBC 06/09/23 03:53 Sodium 139 mmol/L (136-145) 06/09/23 03:53 Potassium 3.6 mmol/L (3.5-5.1) 06/09/23 03:53 Chloride 103 mmol/L (98-107) 06/09/23 03:53 Carbon Dioxide 24 mmol/L (22-29) 06/09/23 03:53 Anion Gap 15.6 (5-19) 06/09/23 03:53 BUN 13 mg/dL (6-20) 06/09/23 03:53 Creatinine 1.1 mg/dL (0.5-0.9) H 06/09/23 03:53 GFR Calculation 51.4 mL/min (90-130) L 06/09/23 03:53 Glucose 103 mg/dL (65-115) 06/09/23 03:53 Estimat Average Glucose 117 06/08/23 05:05 Hemoglobin A1c 5.7 % (4.0-6.0) 06/08/23 05:05 Calculated Osmolality 288 mOsm/kg (285-295) 06/09/23 03:53 Calcium 9.9 mg/dL (8.5-10.5) 06/09/23 03:53 Phosphorus 1.6 mg/dL (2.5-4.5) L 06/08/23 05:05 Magnesium 2.0 mg/dL (1.7-2.3) 06/08/23 05:05 Iron 96 ug/dL (37-145) 06/07/23 14:38 TIBC 393 mcg/dl 06/07/23 14:38 % Saturation 24.4 % (20-50) 06/07/23 14:38 Unsat Iron Binding 297 ug/dL (112-347) 06/07/23 14:38 Total Bilirubin 0.5 mg/dL (0.15-1.2) 06/09/23 03:53 AST 153 U/L (0-32) H 06/09/23 03:53 ALT 73 U/L (0-33) H 06/09/23 03:53 Alkaline Phosphatase 63 U/L (35-105) 06/09/23 03:53 Troponin T Baseline 10 ng/L (0-10) 06/07/23 12:47 Troponin T 120 Minute 12.06 ng/L (0-10) H 06/07/23 14:38 Delta Troponin T 2.06 ABS# (0-10) 06/07/23 14:38 Troponin T Hi Sens 6Hr 16.41 ng/L (0-10) H 06/07/23 18:46 Troponin T Hi Sens 6Hr Delta 6.41 ng/L (0-12) 06/07/23 18:46 Total Protein 8.0 g/dL (6.6-8.7) 06/09/23 03:53 Albumin 4.9 g/dL (3.5-5.2) 06/09/23 03:53 Globulin 3.1 g/dL (1.3-4.6) 06/09/23 03:53 Vitamin B12 385 pg/mL (232-1245) 06/07/23 14:38 Folate < 20.0 ng/mL (4.8-37.3) 06/08/23 05:05 TSH 3.51 uIU/mL (0.27-4.20) 06/07/23 14:38 Urine Color Light yellow (Yellow) 06/07/23 21:48 Urine Appearance Clear (CLEAR) 06/07/23 21:48 Urine pH 8 (5-7) H 06/07/23 21:48 Ur Specific [place] 1.010 (1.005-1.030) 06/07/23 21:48 Urine Protein Neg (Negative) 06/07/23 21:48 Urine Glucose (UA) Norm (Normal) 06/07/23 21:48 Urine Ketones Negative (Negative) 06/07/23 21:48 Urine Blood 3+ (Negative) H 06/07/23 21:48 Urine Nitrate Negative (Negative) 06/07/23 21:48 Urine Bilirubin Neg (Negative) 06/07/23 21:48 Prot Sulfosalicylic Acd Negative (Negative) 06/07/23 21:48 Urine Urobilinogen Norm mg/dL (Negative) 06/07/23 21:48 Ur Leukocyte Esterase Negative (Negative) 06/07/23 21:48 Urine RBC 0-4 /hpf (0-2) H 06/07/23 21:48 Urine WBC 0-4 /hpf (0-5) H 06/07/23 21:48 Ur Squamous Epith Cells 0-4 /hpf (0-5) H 06/07/23 21:48 Amorphous Sediment Not Reportable 06/07/23 21:48 Urine Bacteria Trace /hpf (NONE) 06/07/23 21:48 Imaging Echo: Radiologist's impression: CONCLUSIONS ?LV systolic function is normal with EF of 55-60% ?Grade 1 diastolic dysfunction ?Trace mitral regurgitation ?Mild tricuspid regurgitation ?No comparison studies are available. ?Chalino Landin MD ?(Electronically Signed) ?Final Date:? ? ? 08 June 2023 ? 09:49 Vitals Last Vital Signs Temp 98.3 F 06/09/23 04:00 Pulse 100 06/09/23 08:00 Resp 15 06/09/23 08:00 BP 153/92 06/09/23 08:00 Pulse Ox 98 06/09/23 08:00 O2 Del Method Room Air 06/09/23 08:00 Discharge Plan Discharge Patient Disposition: Home Condition: Stable Prescriptions: New ondansetron 4 mg tablet,disintegrating 4 mg PO Q6H PRN (Reason: nausea and vomiting) Qty: 14 0RF amlodipine 10 mg Tablet 10 mg PO DAILY Qty: 30 0RF metoprolol tartrate 50 mg Tablet 75 mg PO BID@0900,2100 30 Days Qty: 90 0RF hydralazine 50 mg Tablet 50 mg PO TID Qty: 90 0RF hydralazine 25 mg tablet 25 mg PO BID PRN (Reason: sbp more 160 mmhg) Qty: 20 0RF Continued famotidine 20 mg tablet 20 mg PO DAILY PRN (Reason: Heartburn) fexofenadine-pseudoephedrine [Pamela-D 12 Hour] 60-120 mg tablet extended release 12 hr 1 tab PO Q12H PRN (Reason: allergy symptoms) Qty: 60 0RF raloxifene 60 mg tablet 60 mg PO DAILY atorvastatin 20 mg tablet 20 mg PO BEDTIME levothyroxine 50 mcg tablet 50 mcg PO QAM ergocalciferol (vitamin D2) [Vitamin D2] 1,250 mcg (50,000 unit) capsule 50,000 unit PO Q7D Rx Instructions: on diclofenac sodium [Voltaren Arthritis Pain] 1 % gel 2 g topical QID PRN (Reason: Pain) Rx Instructions: apply to knee gabapentin 600 mg tablet 600 mg PO TID Qty: 90 5RF Vitamin B-12 1,000 mcg Tablet 1,000 mcg PO DAILY PRN (Reason: unknown) Vitamin C 500 mg Tablet 500 mg PO DAILY PRN (Reason: unknown) magnesium oxide 400 mg magnesium Tablet 400 mg PO DAILY PRN (Reason: unknown) Effexor XR 150 mg capsule,extended release 24hr 150 mg PO BEDTIME Rx Instructions: Take with food. Watch for nausea omeprazole 40 mg capsule,delayed release(DR/EC) 40 mg PO QAM fenofibrate nanocrystallized 145 mg tablet 145 mg PO DAILY Discontinued metoprolol tartrate 25 mg tablet 25 mg PO BID amlodipine 2.5 mg tablet 2.5 mg PO DAILY Qty: 90 1RF meloxicam 15 mg tablet 15 mg PO DAILY Qty: 30 4RF dicyclomine 20 mg tablet 20 mg PO TID Qty: 90 0RF lisinopril 5 mg tablet 5 mg PO QAM Discharge Orders: Discharge Order (Routine); Ordered 06/09/23 Ordered By: Derrell Yang Referrals: Poly Barlow MD [Primary Care Provider] - 7-10 days Discharge Diet: Cardiac Discharge Activity: Resume usual activity and Increase activity as tolerated Patient Instructions: Opioid Safety Activity Restrictions/Additional Instructions: Please check your blood pressure daily at home and maintain a blood pressure diary and follow-up with a primary care provider within next 2 weeks for further adjustment of antihypertensives. Your blood pressure medications have been changed. Amlodipine dose has been increased to 10 mg daily, metoprolol dose has been increased to 75 mg twice daily. Hydralazine 50 mg 3 times a day has been added to your medication list. You can take hydralazine 25 mg as needed for systolic blood pressure more than 160 mmHg twice daily. If you have any headache, high blood pressure, epistaxis, weakness in any of your limbs, chest pain please come back to the ER. Please follow-up with your vascular surgeon appointment at [facility]. Discharge Attestations Time Spent in Discharge Care*: greater than 30 min Specific Discharge Activities: educating patient, educating and/or supporting family/caregiver, discussing with pcp/other providers, discussing with clinical case manager/social workers/dc planners, documenting/other paperwork and evaluating patient/reviewing data Status at Discharge: Cognitive status at discharge: cognitively intact , Behavioral status at discharge: cooperative , Functional status at discharge: independent ambulation , Overall status at discharge: patient is back to baseline Quality Metrics Clinical Quality Measures [ No reported AMI, CVA or VTE this stay] Coding Level of Care Code 98566 Total time (in minutes) for Discharge: 50 Diagnoses Hypertensive urgency I16.0 Renal artery stenosis, ewiiaapaayp I70.1 Headache R51.9 Hypothyroid E03.9 Hyperlipidemia E78.5 Mitral valve prolapse I34.1 Hypokalemia E87.6 Acute kidney injury N17.9
[2023-06-09 11:33] VITALS: BP 135/81; PULSE 88; RESP 18; O2SAT 93
[2023-06-09 13:36] LABS: Adenovirus Not Detected (NOT DETECT); Chlamydia Pneumoniae Not Detected (NOT DETECT); Coronavirus 229E,HKU1,NL63,OC4 Not Detected (NOT DETECT); Human Metapneumovirus Not Detected (NOT DETECT); Human Rhinovirus/Enterovirus Not Detected (NOT DETECT); Influenza A Not Detected (NOT DETECT); Influenza A H1 Not Detected (NOT DETECT); Influenza A H1-2009 Not Detected (NOT DETECT); Influenza A H3 Not Detected (NOT DETECT); Influenza B Not Detected (NOT DETECT); Mycoplasma Pneumoniae Not Detected (NOT DETECT); Parainfluenza Virus Type 1 Not Detected (NOT DETECT); Parainfluenza Virus Type 2 Not Detected (NOT DETECT); Parainfluenza Virus Type 3 Not Detected (NOT DETECT); Parainfluenza Virus Type 4 Not Detected (NOT DETECT); Respiratory Syncytial Virus A Not Detected (NOT DETECT); Respiratory Syncytial Virus B Not Detected (NOT DETECT); SARS-COV-2 Not Detected (NOT DETECT)
[2023-06-09 14:42] VITALS: BP 135/81; PULSE 88; RESP 18; O2SAT 93
--- NOTE | 2023-06-10 13:39 | PC.SOCIAL ---
Dr. Yang called CM to report a critical, he states that the stool samples came back positive for CDiff and he will send the medications needed to her pharmacy and asked CM to call patient with the results. CM called patient and updated her of her test results and that the medications were called into the [facility]. She verbalized an understanding.
== END 2023-06-09 13:30 | disposition home or self-care (01) ==
LOC: ER 15:33 → ICU 15:54 → CSU 06-09 11:28 → ICU 06-14 17:39
PROVIDERS: Admitting Provider Student in an Organized Health Care Education/Training Program; Emergency Provider Emergency Medicine; PCP Family Medicine; Visit Provider Student in an Organized Health Care Education/Training Program
DX: I16.0 Hypertensive urgency (principal); I70.1 Atherosclerosis of renal artery; R51.9 Headache, unspecified; E03.9 Hypothyroidism, unspecified; E78.5 Hyperlipidemia, unspecified; I34.1 Nonrheumatic mitral (valve) prolapse; E87.6 Hypokalemia; N17.9 Acute kidney failure, unspecified; B96.89 Other specified bacterial agents as the cause of diseases classified elsewhere; I10 Essential (primary) hypertension; K21.9 Gastro-esophageal reflux disease without esophagitis; Z85.048 Personal history of other malignant neoplasm of rectum, rectosigmoid junction, and anus; I07.1 Rheumatic tricuspid insufficiency; Z85.3 Personal history of malignant neoplasm of breast; Z92.21 Personal history of antineoplastic chemotherapy; F17.210 Nicotine dependence, cigarettes, uncomplicated
CPT/HCPCS: 36415; 70450; 80048; 80053; 81001; 82607; 82746; 83036; 83540; 83550; 83735; 84100; 84443; 84484; 85025; 87324; 87449; 87486; 87581; 87633; 93005; 93306; 94664; 96365; 96372; 96375; 96376; 99285; C9113; G0378; J0360; J1170; J1200; J1644; J2270; J2765; J3480; J3490; J7030

== ENCOUNTER → 2023-07-08 11:30 | Outpatient (BNVA) | payer MEDICARE, SELFPAY | PROVIDERS: PCP Family Medicine; Visit Provider Family Medicine | DX: E55.9 Vitamin D deficiency, unspecified (principal); F32.9 Major depressive disorder, single episode, unspecified; I10 Essential (primary) hypertension; I16.0 Hypertensive urgency; K21.9 Gastro-esophageal reflux disease without esophagitis; R07.9 Chest pain, unspecified; M81.0 Age-related osteoporosis without current pathological fracture; E78.5 Hyperlipidemia, unspecified | CPT/HCPCS: 80053; 80061; 82306; 83721; 84443 ==

== ENCOUNTER 2023-08-04 12:54 | Outpatient (CLI) | payer MEDICARE, SELFPAY ==
--- NOTE | 2023-08-04 13:30 | USCV_ITS ---
Zee Yancey Age: 58 Gender: F : 1965 Exam Date: 08/04/2023 13:08 Ordering Phys: Poly Barlow MD Technologist: CT Exam Location: [facility] [place]_ Indication: Risk Factors: Previous Vascular Surgery: Right Brachial BP: / Left Brachial BP: / Right Left Velocity (cm/s) Spectral Plaque Velocity (cm/s) Spectral Plaque Syst/Diast Broadening Syst/Diast Broadening 94.80/ 28.70 Prox CCA 111.20/ 28.60 76.00/ 24.40 Mid CCA 96.30 / 25.20 86.00/ 26.30 Distal CCA 98.60 / 34.40 110.30/36.40 Prox ICA 111.20/ 30.90 93.70/ 35.00 Mid ICA 75.80 / 32.90 72.70/ 25.40 Distal ICA 71.30 / 31.80 117.40 ECA 122.60 1.16 ICA/CCA 1.00 Antegrade Vertebral Antegrade 49.00/ 14.40 cm/s 56.40/ 26.30 cm/s Bi Subclavian Tri 106.6 128.2 0 0 CONCLUSIONS Right ICA stenosis <50%. Mild atheromatous plaque right carotid bulb/ICA. Left ICA stenosis <50%. Mild atheromatous plaque left carotid bulb/ICA. Normal antegrade Doppler flow noted in the right vertebral artery. Normal antegrade Doppler flow noted in the left vertebral artery. Kane Padilla MD (Electronically Signed) Final Date: 04 August 2023 16:21 S
== END 2023-08-04 12:55 | disposition home or self-care (01) ==
LOC: RAD 12:55
PROVIDERS: PCP Family Medicine; Visit Provider Family Medicine
DX: R09.89 Other specified symptoms and signs involving the circulatory and respiratory systems (principal); I65.23 Occlusion and stenosis of bilateral carotid arteries; R42 Dizziness and giddiness
CPT/HCPCS: 93880

== ENCOUNTER → 2023-10-18 12:07 | Outpatient (BNVA) | payer SELFPAY | PROVIDERS: PCP Family Medicine; Visit Provider Family Medicine | DX: R50.9 Fever, unspecified (principal); J02.9 Acute pharyngitis, unspecified; J20.9 Acute bronchitis, unspecified; G47.00 Insomnia, unspecified | CPT/HCPCS: 87400; 87426 ==

== ENCOUNTER → 2023-12-03 10:31 | Outpatient (BNVA) | payer MEDICARE, SELFPAY | PROVIDERS: PCP Family Medicine; Visit Provider Internal Medicine Cardiovascular Disease | DX: I10 Essential (primary) hypertension (principal); E78.5 Hyperlipidemia, unspecified; C21.1 Malignant neoplasm of anal canal; Z85.3 Personal history of malignant neoplasm of breast; F17.200 Nicotine dependence, unspecified, uncomplicated | CPT/HCPCS: 99213 ==

== ENCOUNTER → 2023-12-29 12:57 | Outpatient (BNVA) | payer MEDICARE, SELFPAY | PROVIDERS: PCP Family Medicine; Referring Provider Family Medicine; Visit Provider Specialist | DX: M25.522 Pain in left elbow (principal); S42.492 Other displaced fracture of lower end of left humerus; V29.99XS Rider (driver) (passenger) of other motorcycle injured in unspecified traffic accident, sequela | CPT/HCPCS: 73080; 99204 ==

== ENCOUNTER 2024-01-13 08:57 | Outpatient (CLI) | payer MEDICARE, SELFPAY ==
--- NOTE | 2024-01-13 09:30 | NM_ITS ---
WS: [id number] THREE-PHASE BONE SCAN HISTORY: pain, LEFT elbow. Prior extensive fixation hardware. COMPARISON: Radiograph 12/29/2023 Patient is is injected with 25.0 mCi Tc99m HDP intravenously. Immediate angiographic phase imaging is performed over the area of concern. Static blood pool imaging also performed. Two-hour whole-body sc intigrams performed in anterior and posterior projections. Additional large field of view imaging sub mitted as necessary. Arterial phase imaging and blood pool phase imaging performed. There is no significant uptake on eith er the arterial or blood pool phase imaging. On the delayed imaging there is significant increased activity uptake at the elbow joint. The increas ed uptake involves the both the medial and lateral portions of the elbow but greatest laterally. Moderate, nearly symmetric increased uptake involving the knee joints bilaterally, RIGHT greater than LEFT from osteoarthritis. Normal soft tissues. Renal activity is normal. Mild degenerative change at the ankles. IMPRESSION: 1. No cellulitis or osteomyelitis at the LEFT elbow. 2. On the 2-hour delayed imaging there is increased uptake at the LEFT elbow joint indicating arthro leo most likely. 3. Moderate bilateral osteoarthritis involving each knee.
== END 2024-01-13 08:58 | disposition home or self-care (01) ==
LOC: RAD 08:58
PROVIDERS: PCP Family Medicine; Visit Provider Specialist
DX: M25.522 Pain in left elbow (principal); M17.0 Bilateral primary osteoarthritis of knee
CPT/HCPCS: 78315; A9561

== ENCOUNTER → 2024-03-14 13:42 | Outpatient (BNVA) | payer MEDICARE, SELFPAY | PROVIDERS: PCP Family Medicine; Visit Provider Nurse Practitioner Family | DX: R05.9 Cough, unspecified (principal); Z20.822 Contact with and (suspected) exposure to COVID-19 | CPT/HCPCS: 87426 ==

== ENCOUNTER → 2024-08-11 10:00 | Outpatient (BNVA) | payer MEDICARE, SELFPAY | PROVIDERS: PCP Family Medicine; Visit Provider Nurse Practitioner Family | DX: I10 Essential (primary) hypertension (principal); E78.2 Mixed hyperlipidemia; R00.2 Palpitations; I34.1 Nonrheumatic mitral (valve) prolapse | CPT/HCPCS: 99214 ==

== ENCOUNTER → 2024-10-26 10:40 | Outpatient (BNVA) | payer MEDICARE, SELFPAY | PROVIDERS: Family Provider Nurse Practitioner Family; PCP Nurse Practitioner Family; Visit Provider Nurse Practitioner Family | DX: Z85.048 Personal history of other malignant neoplasm of rectum, rectosigmoid junction, and anus (principal); R07.9 Chest pain, unspecified; F32.9 Major depressive disorder, single episode, unspecified | CPT/HCPCS: 80053; 80061; 84443; 85025 ==

== ENCOUNTER → 2024-10-31 10:11 | Outpatient (BNVA) | payer MEDICARE, SELFPAY | PROVIDERS: Family Provider Nurse Practitioner Family; PCP Nurse Practitioner Family; Visit Provider Surgery | DX: Z12.11 Encounter for screening for malignant neoplasm of colon (principal) | CPT/HCPCS: 99024; 99214 ==

== ENCOUNTER 2024-11-15 13:04 | Outpatient (CLI) | payer MEDICARE, SELFPAY ==
--- NOTE | 2024-11-15 13:20 | MM_ITS ---
WS: [id number] LEFT 3D TOMOSYNTHESIS DIGITAL MAMMOGRAPHY WITH CAD CLINICAL INFORMATION: Z85.3 - Personal history of malignant neoplasm of breast HISTORY: RIGHT mastectomy COMPARISON: 2022 TECHNIQUE: 3 views of the left breast were obtained. FINDINGS: Scattered fibroglandular densities of the left breast. No suspicious focal mass, asymmetry, calcifications, or architectural distortion. No evidence of malignancy. MM/MM diag LT tomosynthesis [id number] IMPRESSION: DENSITY: There are scattered areas of fibroglandular density. BI-RADS: 1 - Negative. FOLLOW UP: 1 Year Follow-up Recommend return to annual diagnostic mammography.
== END 2024-11-15 13:05 | disposition home or self-care (01) ==
LOC: RAD 13:07
PROVIDERS: Family Provider Nurse Practitioner Family; PCP Nurse Practitioner Family; Visit Provider Nurse Practitioner Family
DX: Z85.3 Personal history of malignant neoplasm of breast (principal); R92.322 Mammographic fibroglandular density, left breast
CPT/HCPCS: 77061; G0279

== ENCOUNTER 2024-11-30 11:26 | Day surgery (SDC) | payer MEDICARE, SELFPAY ==
[2024-11-30 11:55] VITALS: BMI 23.0
--- NOTE | 2024-11-30 11:56 | ANES.PREANE2 ---
Pre-Anesthetic Assessment Height/Weight: Height 1.7 m Preop Diagnosis: Cancer screening/diarrhea/colitis Operation Date: 11/30/24 12:50 Proposed Procedures p Colonoscopy 67408 G0121 Z12.11(Not Applicable) - Shahid Colorado MD Familial anesthetic complications: none Was Beta Javier taken within 24 hours: N/A Was Clonidine taken within 24 hours: N/A Social No alcohol and No tobacco Smokes Marjuana daily Exam alert, oriented x 3, clear to auscultation bilaterally and regular rate & rhythm Airway Submandibular: within normal limits Cervical ROM: within normal limits Mallampati: Class II Dentition: false History/ROS No significant history except as noted and No significant complaints Pulmonary None reported CV/HEM Hypertension and Murmur None reported Hepatic None reported Musc/skel None reported Neuropsych Depression and Neuropathy Anesthetic Plan ASA status: 3 Anesthesia: MAC Risk of > 500 ml blood loss (7ml/kg in children): No Medications/Allergies Home Medications ?Medication ?Instructions ?Recorded ?Confirmed ?Last Taken ?Type fexofenadine 60 mg-pseudoephedrine 1 tab PO Q12H PRN allergy symptoms 04/01/22 11/30/24 11/29/24 Rx ER 120 mg tablet,ext.release,12 hr #60 tabs (Pamela-D 12 Hour) ascorbic acid (vitamin C) 500 mg 500 mg PO DAILY PRN unknown 06/07/23 11/30/24 11/29/24 History tablet (Vitamin C) cyanocobalamin (vitamin B-12) 1,000 mcg PO DAILY PRN unknown 06/07/23 11/30/24 11/29/24 History 1,000 mcg tablet (Vitamin B-12) magnesium oxide 400 mg PO DAILY PRN unknown 06/07/23 11/30/24 Unknown History hydralazine 50 mg tablet 50 mg PO TID #120 tabs 08/11/24 11/30/24 11/29/24 Rx atorvastatin 20 mg tablet 20 mg PO BEDTIME #30 tabs 10/17/24 11/30/24 11/29/24 Rx diclofenac sodium 1 % topical gel 2 g topical QID PRN Pain #100 grams 10/17/24 11/30/24 11/29/24 Rx (Voltaren Arthritis Pain) ergocalciferol (vitamin D2) 1,250 50,000 unit PO Q7D #7 caps 10/17/24 11/30/24 11/26/24 Rx mcg (50,000 unit) capsule (Vitamin D2) fluoxetine 20 mg capsule 20 mg PO DAILY #30 caps 10/17/24 11/30/24 11/29/24 Rx gabapentin 800 mg tablet 800 mg PO BID #60 tabs 10/17/24 11/30/24 11/29/24 Rx hydrocortisone-pramoxine 1 %-1 % 1 applic [place] QID PRN itching #30 10/17/24 11/30/24 Unknown Rx rectal cream (Analpram-HC) grams levothyroxine 50 mcg tablet 50 mcg PO QAM #30 tabs 10/17/24 11/30/24 11/29/24 Rx metoprolol tartrate 50 mg tablet 50 mg PO BID@0900,2100 30 days #60 10/17/24 11/30/24 11/29/24 Rx tabs omeprazole 40 mg capsule,delayed 40 mg PO QAM #30 caps 10/17/24 11/30/24 11/30/24 Rx release CoQ-10 1 tab PO DAILY 11/28/24 11/30/24 11/29/24 History amlodipine 10 mg tablet 10 mg PO DAILY 11/28/24 11/30/24 11/29/24 History raloxifene 60 mg tablet (Evista) 60 mg PO DAILY 11/28/24 11/30/24 11/29/24 History trazodone 50 mg tablet 50 - 100 mg PO BEDTIME PRN insomina 11/28/24 11/30/24 Unknown History Allergies Allergy/AdvReac Type Severity Reaction Status Date / Time propoxyphene (From AdvReac Mild nightmares Verified 11/30/24 11:53 Darvocet-N) [facility] Anesthesia Medical History Colitis Squamous cell carcinoma of anal canal Hypothyroid Hyperlipidemia Mitral valve prolapse Arm fracture, left fx left elbow Status post chemoradiation Vitamin A deficiency Small fiber neuropathy Hypertension History of breast cancer (~1999) stage IIA (T1c, pN1, M0), ER positive/[place] negative and HER-2/[place] negative. Gastro-esophageal reflux History of anal cancer (~2016) stage II (T2, N0, M0). Depression Surgical History History of elbow surgery History of colonoscopy with polypectomy (07/31/21) H/O laparoscopy Both ovaries removed-- due to continued pain H/O wrist surgery Left H/O: hysterectomy (~1996) [place], B/L salpingectomy--due to pelvic pain; [place] H/O total mastectomy (~1999) Right-- ER +/ [place] - HER 2 neg Family History Grandmother Breast cancer Paternal grandmother age unknown Sister Uterine cancer dx'd in late 20s Father Heart disease Hyperlipidemia Hypertension Mother Diabetes Denies family history of Stroke Social History Smoking and tobacco/nicotine status: never used tobacco/nicotine Additional social history: - Tobacco use: Denies Alcohol use: Denies Drug use: Marijuana use Data Anesthesia Cardiac Studies: Echocardiogram 06/07/23
[2024-11-30] MEDS: sodium chloride 0.9% 500 ML 15 ML IV (12:01)
--- NOTE | 2024-11-30 12:05 | W.PM.OPSFHP ---
Same Day Surgery H&P Indication for Procedure/HPI DATE OF PROCEDURE: November 30, 2024 CHIEF COMPLAINT/INDICATIONFOR SURGICAL PROCEDURE: need for screening colonoscopy PREOP DIAGNOSIS: Cancer screening/diarrhea/colitis PLANNED PROCEDURE: Operation Date: 11/30/24 12:50 Proposed Procedures p Colonoscopy [id number] Z12.11(Not Applicable) - Shahid Colorado MD Medications/Allergies* Home Medications ?Medication ?Instructions ?Recorded ?Confirmed ?Type ascorbic acid (vitamin C) 500 mg 500 mg PO DAILY PRN unknown 06/07/23 11/30/24 History tablet (Vitamin C) cyanocobalamin (vitamin B-12) 1,000 mcg PO DAILY PRN unknown 06/07/23 11/30/24 History 1,000 mcg tablet (Vitamin B-12) magnesium oxide 400 mg PO DAILY PRN unknown 06/07/23 11/30/24 History CoQ-10 1 tab PO DAILY 11/28/24 11/30/24 History amlodipine 10 mg tablet 10 mg PO DAILY 11/28/24 11/30/24 History raloxifene 60 mg tablet (Evista) 60 mg PO DAILY 11/28/24 11/30/24 History trazodone 50 mg tablet 50 - 100 mg PO BEDTIME PRN insomina 11/28/24 11/30/24 History Allergies/Adverse Reactions Allergy/AdvReac Type Severity Reaction Status Date / Time propoxyphene (From AdvReac Mild nightmares Verified 11/30/24 11:53 Darvocet-N) Current Medications: Generic Name Dose Route Start Last Admin Trade Name Freq PRN Reason Stop Dose Admin Sodium Chloride 500 mls @ 15 mls/hr 11/30/24 11:55 11/30/24 12:01 Sodium Chloride 0.9% IV 12/01/24 11:54 15 mls/hr .Q24H PRN Administration COLONOSCOPY FLUIDS Pertinent History/Comorbid Conditions* Medical History (Updated 08/11/24 @ 14:53 by FITO Stern) Colitis Squamous cell carcinoma of anal canal Hypothyroid Hyperlipidemia Mitral valve prolapse Arm fracture, left fx left elbow Status post chemoradiation Vitamin A deficiency Small fiber neuropathy Hypertension History of breast cancer (~1999) stage IIA (T1c, pN1, M0), ER positive/NE negative and HER-2/pawan negative. Gastro-esophageal reflux History of anal cancer (~2016) stage II (T2, N0, M0). Depression Surgical History (Updated 06/07/23 @ 15:32 by Derrell Yang MD) History of elbow surgery History of colonoscopy with polypectomy (07/31/21) H/O laparoscopy Both ovaries removed-- due to continued pain H/O wrist surgery Left H/O: hysterectomy (~1996) [place], B/L salpingectomy--due to pelvic pain; [place] H/O total mastectomy (~1999) Right-- ER +/ NE - HER 2 neg Family History (Updated 11/17/21 @ 07:56 by Anu Veronica, QUYEN) Diabetes Mother Heart disease Father Hyperlipidemia Father Breast cancer Grandmother Paternal grandmother age unknown Hypertension Father Uterine cancer Sister dx'd in late 20s Denies family history of Stroke Social History Smoking and tobacco/nicotine status: never used tobacco/nicotine Additional social history: - Tobacco use: Denies Alcohol use: Denies Drug use: Marijuana use Pertinent Exam Findings alert, oriented x 3 and clear to auscultation bilaterally Recommendations Surgery/Procedure today Coding Level of Care Code Acute Code for Sugeyg Moses
[2024-11-30 13:04] VITALS: BP 128/75; PULSE 72; RESP 18; TEMP 36.1; O2SAT 94
[2024-11-30 13:19] VITALS: BP 144/78; PULSE 71; RESP 18; O2SAT 95
--- NOTE | 2024-11-30 13:35 | ANE.PACU2 ---
Inpatient post-anesthesia follow up: Airway intact: Yes Vital signs: Temperature 97.0 F Pulse Rate 71 Respiratory Rate 18 Blood Pressure 144/78 Pulse Oximetry 95 Oxygen Delivery Me thod Room Air Oxygen Flow Rate Fraction of Inspir ed Oxygen Hydration adequate: Yes Nausea and vomiting: No Pain level: 1 Mental status: Baseline
== END 2024-11-30 13:34 | disposition home or self-care (01) ==
PROVIDERS: PCP Nurse Practitioner Family; Visit Provider Surgery
PROC: 0DJD8ZZ Inspection of Lower Intestinal Tract, Via Natural or Artificial Opening Endoscopic (ICD-10-PCS; CPT 45378; principal; 2024-11-30 12:50)
DX: Z12.11 Encounter for screening for malignant neoplasm of colon (principal); D12.5 Benign neoplasm of sigmoid colon; D12.3 Benign neoplasm of transverse colon; K51.40 Inflammatory polyps of colon without complications; K62.1 Rectal polyp; K63.5 Polyp of colon; E03.9 Hypothyroidism, unspecified; Z85.048 Personal history of other malignant neoplasm of rectum, rectosigmoid junction, and anus; I10 Essential (primary) hypertension; E78.5 Hyperlipidemia, unspecified; G62.9 Polyneuropathy, unspecified; Z79.899 Other long term (current) drug therapy; Z79.890 Hormone replacement therapy; K21.9 Gastro-esophageal reflux disease without esophagitis; Z90.710 Acquired absence of both cervix and uterus
CPT/HCPCS: 45380; 45382; 45385; 88305; J2704; J7040; J9999

== ENCOUNTER 2024-12-08 08:25 | Outpatient (CLI) | payer MEDICARE, SELFPAY ==
--- NOTE | 2024-12-08 08:30 | US_ITS ---
WS: [email or web address] Gallbladder, liver and right upper quadrant ultrasound, 12/08/2024 Clinical Data: R74.8 - Abnormal levels of other serum enzymes Comparison: Right upper quadrant ultrasound, 06/30/2022 Findings: The gallbladder shows no sludge or stone. The wall measures 0.3 cm with no pericholecystic fluid. The common bile duct is 0.4 cm and there are no intrahepatic ductal abnormalities. Liver shows no cysts, masses or dilated intrahepatic ducts. The liver measures 14.7 cm. The main portal vein is 0.8 cm with hepatopetal pedal flow. The liver shows fatty infiltration. The pancreas is not obscured by overlying bowel gas and no cyst, pseudocyst, or evidence of pancreatitis is noted. Right kidney measures 13.3 cm and no cyst, masses or hydronephrosis can be seen. The aorta and inferior vena cava show no vascular abnormalities. US/US liver [id number] Impression: 1. Negative gallbladder. 2. Fatty infiltration of the liver.
== END 2024-12-08 08:26 | disposition home or self-care (01) ==
PROVIDERS: PCP Nurse Practitioner Family; Visit Provider Nurse Practitioner Family
DX: R74.8 Abnormal levels of other serum enzymes (principal); Z87.898 Personal history of other specified conditions; K76.0 Fatty (change of) liver, not elsewhere classified
CPT/HCPCS: 76705

== ENCOUNTER 2024-12-11 13:01 | Outpatient (CLI) | payer MEDICARE, SELFPAY ==
--- NOTE | 2024-12-11 13:00 | XR_ITS ---
WS: [email or web address] SCREENING DEXA SCAN [employer] [facility] [place] CLINICAL INFORMATION: M81.0 - Age-related osteoporosis without current patholog... COMPARISON: 2022 FINDINGS: The L1-L4 bone mineral density measures 0.870 g/cm2. This corresponds to a T score score of -2.6 and Z score of -1.7. Left femoral neck bone mineral density measures 0.786 g/cm2. This corresponds to a T score of -1.8 and Z score of -1.0. Right femoral neck bone mineral density measures 0.777 g/cm2. This corresponds to a T score -1.8of and Z score of -1.1. Mean femoral neck bone mineral density measures 0.782 g/cm2. This corresponds to a T score of -1.8 and Z score of -1.1. XR/XR DEXA axial skeleton* 94021 IMPRESSION: Osteoporosis lumbar spine. Osteopenia femoral necks. Patient's FRAX calculated 10 year probability for major osteoporotic fracture i s 8.7% and osteoporotic hip fracture is 1.1%. Bone marrow density lumbar spine increased 0.9% Bone marrow density femoral necks increased 0.4%
== END 2024-12-11 13:02 | disposition home or self-care (01) ==
LOC: RAD 13:03
PROVIDERS: PCP Nurse Practitioner Family; Visit Provider Nurse Practitioner Family
DX: M81.0 Age-related osteoporosis without current pathological fracture (principal)
CPT/HCPCS: 77080

== ENCOUNTER → 2024-12-26 13:21 | Outpatient (BNVA) | payer MEDICARE, SELFPAY | PROVIDERS: PCP Nurse Practitioner Family; Visit Provider Surgery | DX: Z09 Encounter for follow-up examination after completed treatment for conditions other than malignant neoplasm (principal) | CPT/HCPCS: 99213 ==

== ENCOUNTER 2025-02-01 13:29 | Outpatient (CLI) | payer MEDICARE, SELFPAY ==
--- NOTE | 2025-02-01 13:35 | XR_ITS ---
WS: [email or web address] Exam: XR femur LT min 2V* [id number] Date/Time of Exam: 02/01/2025 1:53 PM Reason For Exam: M79.605 - Pain in left leg No fracture noted. Again noted are bone infarcts in the distal femur and the medial and lateral condyles as previously described. There are early subchondral bone erosions in the medial and lateral femoral condyles. The remainder of the femur is intact. Normal soft tissues. XR/XR femur LT min 2V* [id number] IMPRESSION: 1. Distal femoral bone infarcts which extend to the subchondral bone with erosi ons as previously described. The remaining aspects of the LEFT femur are normal .
--- NOTE | 2025-02-01 13:35 | XR_ITS ---
WS: [email or web address] Exam: XR hip LT 2-3V wo/w pel* [id number] Date/Time of Exam: 02/01/2025 1:53 PM Reason For Exam: M25.552 - Pain in left hip No fracture. The joint compartment is relatively well-maintained. Normal soft tissues. The LEFT pelvis is unremarkable. XR/XR hip LT 2-3V wo/w pel* [id number] IMPRESSION: 1. Negative LEFT hip.
--- NOTE | 2025-02-01 13:35 | XR_ITS ---
WS: [email or web address] Exam: XR knee LT 3V* [id number] Date/Time of Exam: 02/01/2025 1:53 PM Reason For Exam: M25.562 - Pain in left knee There are bone infarcts involving the medial and lateral femoral condyles that extend to the subchondral articular bone. There are mild subchondral bone erosions of the medial and lateral femoral condyles. The joint spaces are preserved. No joint effusion. Normal soft tissues. Recommendations: This patient is likely of some risk for osteonecrosis. Orthopedic consult might be considered for follow-up. XR/XR knee LT 3V* [id number] IMPRESSION: 1. Bone infarcts in the medial and lateral femoral condyles which extend to sub chondral bone and show early subchondral bone erosions. 2. The joint spaces are preserved and there is no joint effusion.
== END 2025-02-01 13:30 | disposition home or self-care (01) ==
PROVIDERS: PCP Nurse Practitioner Family; Visit Provider Nurse Practitioner Family
DX: M79.605 Pain in left leg (principal); M25.562 Pain in left knee; M25.552 Pain in left hip; R93.6 Abnormal findings on diagnostic imaging of limbs; M85.88 Other specified disorders of bone density and structure, other site
CPT/HCPCS: 73502; 73552; 73562

== ENCOUNTER → 2025-02-13 13:14 | Outpatient (BNVA) | payer MEDICARE, SELFPAY | PROVIDERS: PCP Nurse Practitioner Family; Visit Provider Internal Medicine Cardiovascular Disease | DX: I10 Essential (primary) hypertension (principal); E78.5 Hyperlipidemia, unspecified; M81.0 Age-related osteoporosis without current pathological fracture; F12.90 Cannabis use, unspecified, uncomplicated; Z87.891 Personal history of nicotine dependence | CPT/HCPCS: 99214 ==

== ENCOUNTER 2025-02-15 13:51 | Emergency (ER) | payer MEDICARE, MEDICAID, SELFPAY ==
[2025-02-15 13:57] VITALS: BP 84/54; PULSE 74; RESP 17; TEMP 36.8; O2SAT 96; BMI 23.0
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
[2025-02-15] MEDS: ketorolac 60 mg/2 mL INJ IM (14:47)
[2025-02-15 15:49] VITALS: BP 94/59; PULSE 71; RESP 16; O2SAT 93
== END 2025-02-15 15:44 | disposition home or self-care (01) ==
PROVIDERS: Emergency Provider Nurse Practitioner; PCP Nurse Practitioner Family
DX: M25.562 Pain in left knee (principal); M87.852 Other osteonecrosis, left femur; I95.2 Hypotension due to drugs; Z87.891 Personal history of nicotine dependence; E78.5 Hyperlipidemia, unspecified; Z85.048 Personal history of other malignant neoplasm of rectum, rectosigmoid junction, and anus; Z85.3 Personal history of malignant neoplasm of breast; I10 Essential (primary) hypertension
CPT/HCPCS: 96372; 99284; J1885

== ENCOUNTER → 2025-02-20 10:26 | Outpatient (BNVA) | payer MEDICARE, MEDICAID, SELFPAY | PROVIDERS: PCP Nurse Practitioner Family; Visit Provider Orthopaedic Surgery | DX: M87.052 Idiopathic aseptic necrosis of left femur (principal); M25.562 Pain in left knee | CPT/HCPCS: 99204 ==

== ENCOUNTER 2025-03-01 10:59 | Outpatient (CLI) | payer MEDICARE, MEDICAID, SELFPAY ==
--- NOTE | 2025-03-01 11:00 | MRR_ITS ---
PROCEDURE INFORMATION: Exam: MR Left Lower Extremity Joint Without Contrast, Knee Exam date and time: 03/01/2025 11:16 AM Age: 59 years old Clinical indication: Bone spur with pain. Left knee pain/bone spur TECHNIQUE: Imaging protocol: Magnetic resonance imaging of the left lower extremity joint without contrast. Exam focused on the knee. COMPARISON: CR XR knee LT 3V* [id number] 02/01/2025 1:56 PM FINDINGS: Bones/joints: There are bone infarcts in the medial and lateral femoral condyles with extensive associated marrow edema. Prominent bone infarct in the proximal tibia. Small bone infarcts in the patella. No full-thickness articular cartilage loss is appreciated. Small joint effusion. Bursae: Small Acuña cyst. Medial meniscus: The medial meniscus is intact. Lateral meniscus: The lateral meniscus is intact. Anterior cruciate ligament: The anterior cruciate ligament is intact. Posterior cruciate ligament: The posterior cruciate ligament is intact. Medial capsule and supporting structures: The medial collateral ligament is intact. Lateral capsule and supporting structures: The lateral collateral ligament is intact. The biceps femoris tendon is intact. The iliotibial band is intact. Extensor mechanism of knee: The extensor mechanism is overall intact. Soft tissues: No significant subcutaneous soft tissue swelling. MR/MR knee LT wo con* [id number] IMPRESSION: 1. Bone infarcts in the medial and lateral femoral condyles with extensive associated marrow edema. Prominent bone infarct in the proximal tibia. Small bone infarcts in the patella. 2. Small Acuña cyst. 3. Small joint effusion.
== END 2025-03-01 11:00 | disposition home or self-care (01) ==
LOC: RAD 11:01
PROVIDERS: PCP Nurse Practitioner Family; Visit Provider Orthopaedic Surgery
DX: M87.052 Idiopathic aseptic necrosis of left femur (principal)
CPT/HCPCS: 73721

== ENCOUNTER → 2025-03-05 08:47 | Outpatient (BNVA) | payer MEDICARE, MEDICAID, SELFPAY | PROVIDERS: PCP Nurse Practitioner Family; Visit Provider Orthopaedic Surgery | DX: Z01.818 Encounter for other preprocedural examination (principal); M86.162 Other acute osteomyelitis, left tibia and fibula | CPT/HCPCS: 36415; 80053; 81001; 85025; 87086; 99213 ==

== ENCOUNTER 2025-03-20 02:13 | Emergency (ER) | payer MEDICARE, SELFPAY ==
[2025-03-20 02:15] VITALS: BP 151/84; PULSE 86; RESP 16; TEMP 36.6; O2SAT 99; BMI 23.5
[2025-03-20 02:19] VITALS: BP 151/84; PULSE 74; O2SAT 99
--- OUTSIDE RECORDS SUMMARY | 2025-03-20 02:22 | XMS_ITS | Clinical Summary ---
Author Organization [facility] Address [address] [place] [address] Care Team Providers Care Shift Supervisor Melting Name Role Phone Poly Barlow MD Primary Care Provider [phone] Allergies No known active allergies Medications atorvastatin (LIPITOR) 10 MG tablet Take 10 mg by mouth in the morning. 2 Active ergocalciferol (ERGOCALCIFERO L) 50,000 unit capsule TAKEN ONE CAPSULE BY MOUTH ONCE MONTHLY 2 Active Emgality Pen 120 mg/mL pen injector INJECT 120MG SUBCUTANEOUSLY ONCE 2 Active gabapentin (NEURONTIN) 600 mg tablet Take 600 mg by mouth in the morning and 600 mg at noon and 600 mg in the evening. 2 Active levothyroxine (SYNTHROID) 50 MCG tablet Take 50 mcg by mouth in the morning. 2 Active lisinopriL (PRINIVIL) 5 MG tablet Take 5 mg by mouth in the morning. 2 Active meloxicam (MOBIC) 15 MG tablet Take 15 mg by mouth in the morning. 2 Active metoprolol tartrate (LOPRESSOR) 25 MG tablet Take 25 mg by mouth in the morning and 25 mg in the evening. 2 Active omeprazole (PriLOSEC) 40 MG capsule TAKE 1 CAPSULE BY MOUTH TWICE DAILY DIRECTED 2 Active Osphena 60 mg tablet TAKE 1 TABLET BY MOUTH ONCE DAILY FOR VAGINAL DRYNESS/MENOPAUSAL MUST ADMINISTER WITH FOOD, PREFERABLE A HIGH-FAT MEAL 2 Active oxyCODONE (ROXICODONE) 5 MG immediate release (IR) tablet Take 5 mg by mouth 3 (three) times a day as needed. 2 Active venlafaxine (EFFEXOR-XR) 150 MG 24 hr capsule TAKE 1 CAPSULE BY MOUTH ONCE DAILY WITH FOOD WATCH FOR NAUSEA 2 Active Active Problems No known active problems Family History Medical History Relation Name Comments Heart disease Father Hypertension Father Diabetes Mother Heart disease Mother Relation Name Status Comments Father Mother Social History Tobacco Use Types Packs/Day Years Used Date Smoking Tobacco: Never Smokeless Tobacco: Never Tobacco Cessation:Counseling Given: Not Answered Alcohol Use Standard Drinks/Week Comments Never 0 (1 standard drink = 0.6 oz pur e alcohol) PHQ-2 Answer Date Recorded PHQ-2 Score 0 09/28/2022 Comments Unknown Sex and Gender Information Value Date Recorded Sex Assigned at Not on file Legal Sex Female 7:57 AM RN LACTATION Gender Identity Not on file Sexual Orientation Not on file Last Filed Vital Signs Vital Sign Reading Time Taken Comments Blood Pressure 132/83 09/28/2022 8:12 AM RN LACTATION Pulse 78 09/28/2022 8:12 AM RN LACTATION Temperature - - Respiratory Rate 18 09/28/2022 8:12 AM RN LACTATION Oxygen Saturation - - Inhaled Oxygen Concentration - - Weight 64.9 kg (143 lb) 09/28/2022 8:12 AM RN LACTATION Height 170.2 cm (5' 7 ) 09/28/2022 8:12 AM RN LACTATION Body Mass Index 22.4 09/28/2022 8:12 AM RN LACTATION Plan of Treatment Health Maintenance Due Date Last Done Comments Medicare Annual Wellness 1965 Hepatitis B Vaccines (1 of 3 - 19+ 3-dose series) 1986 Pap Smear 1988 Mammogram 2007 Colonoscopy 2012 Td, Tdap Vaccines Adult 05/10/2017 05/10/2007 Pneumococcal Vaccine: 50+ Years (1 of 1 - PCV) 2017 Shingrix (ZOSTER RECOMBINANT) (1 of 2) 2017 COVID-19 Vaccine ( season) 2024 08/31/2022, 02/27/2022, 07/17/2021, Additional history exists Influenza Vaccination (Season Ended) 2025 07/24/2022, 07/17/2019, 07/22/2018, Additional history exists HIB Vaccines Aged Out No longer eligi ble based on patient's age to complete this topic HPV Vaccines Aged Out No longer eligi ble based on patient's age to complete this topic Hepatitis A Vaccines Aged Out No long er eligible based on patient's age to complete this topic IPV Vaccines Aged Out No longer eligi ble based on patient's age to complete this topic Meningococcal Vaccines Aged Out No lo nger eligible based on patient's age to complete this topic RSV Mab Nirsevimab (Beyfortus) <20 months Aged Out No longer eligibl e based on patient's age to complete this topic Rotavirus Vaccines Aged Out No longer eligible based on patient's age to complete this topic Insurance [facility] Care Teams Shift Supervisor Melting Relationship Specialty Start Date End Date Poly Barlow MD [address] [place], [place] [id number] PCP - General Family Medicine 09/28/22
--- NOTE | 2025-03-20 02:24 | ECG_ITS ---
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 Measurements Intervals Equinunk Rate: 53 P: 69 WA: 140 QRS: 56 QRSD: 84 T: 61 QT: 361 QTc: 342 Interpretive Statements SINUS BRADYCARDIA WITH SINUS ARRHYTHMIA SEPTAL MYOCARDIAL INFARCTION , OF INDETERMINATE AGE [40+ ms Q WAVE IN V1/V2] Compared to ECG 06/07/2023 21:26:04 Myocardial infarct finding now present Sinus tachycardia no longer present ST (T wave) deviation no longer present Electronically Signed On 03-22-2025 09:06:04 CDT by Chalino Landin M.D. [email or web address]
--- NOTE | 2025-03-20 02:24 | XRR_ITS ---
PROCEDURE INFORMATION: Exam: XR Chest Exam date and time: 03/20/2025 2:28 AM Age: 59 years old Clinical indication: Pain; Chest pressure; Additional info: Chest pain TECHNIQUE: Imaging protocol: Radiologic exam of the chest. Views: 1 view. COMPARISON: CR XR chest 2V* [id number] 07/01/2022 3:04 PM FINDINGS: Tubes, catheters and devices: Surgical clips are seen projecting over the right axillary region. Lungs: Unremarkable. No consolidation. Pleural spaces: Unremarkable. No pleural effusion. No pneumothorax. Heart/Mediastinum: Unremarkable. No cardiomegaly. Bones/joints: Unremarkable. XR/XR chest 1V portable [id number] IMPRESSION: No acute findings.
--- NOTE | 2025-03-20 02:29 | ED_ITS ---
HPI - Chest Pain 2 General: Chief Complaint: Chest Pain Stated Complaint: Heart Palpatations Time Seen by Provider: 03/20/25 02:16 History of Present Illness: 59-year-old female with a history of hyp erlipidemia, mitral valve prolapse, hypertension and GERD who presents the emergency room with palpitations. She is been having some chest pressure with this. This started about 7:00 in did not stop until she got here. She says she has had palpitations in the past but this lasted longer. Also she was having the chest pressure. No cough. No abdominal pain. No vomiting. No altered mental status. Related Data Home Medications ?Medication ?Instructions ?Recorded ?Confirmed ascorbic acid (vitamin C) 500 mg 500 mg PO DAILY PRN u nknown 06/07/23 03/08/25 tablet (Vitamin C) cyanocobalamin (vitamin B-12) 1,000 mcg PO DAILY PRN u nknown 06/07/23 03/08/25 1,000 mcg tablet (Vitamin B-12) magnesium oxide 400 mg PO DAILY PRN unknown 06/07/23 03/08/25 CoQ-10 1 tab PO DAILY 11/28/2402/18 amlodipine 10 mg tablet 10 mg PO DAILY 11/28/2402/18 raloxifene 60 mg tablet (Evista) 60 mg PO DAILY 03/08/25 trazodone 50 mg tablet 50 - 100 mg PO BEDTIME PRN i nsomina 11/28/24 03/08/25 Previous Rx's ?Medication ?Instructions ?Recorded fexofenadine 60 mg-pseudoephedrine 1 tab PO Q12H PRN a llergy symptoms 04/01/22 ER 120 mg tablet,ext.release,12 hr #60 tabs (Pamela-D 12 Hour) atorvastatin 20 mg tablet 20 mg PO BEDTIME #30 tabs diclofenac sodium 1 % topical gel 2 g topical QID PRN Pain #100 grams 10/17/24 (Voltaren Arthritis Pain) ergocalciferol (vitamin D2) 1,250 50,000 unit PO Q7D # 7 caps 10/17/24 mcg (50,000 unit) capsule (Vitamin D2) fluoxetine 20 mg capsule 20 mg PO DAILY #30 caps 09/21 05/14 gabapentin 800 mg tablet 800 mg PO BID #60 tabs 10/17 hydrocortisone-pramoxine 1 %-1 % 1 applic SC QID PRN i tching #30 10/17/24 rectal cream (Analpram-HC) grams levothyroxine 50 mcg tablet 50 mcg PO QAM #30 tabs omeprazole 40 mg capsule,delayed 40 mg PO QAM #30 caps 10/17/24 release metoprolol tartrate 75 mg tablet 75 mg PO BID@0900,210 0 #180 tabs 02/13/25 valsartan 160 mg tablet 160 mg PO BID #180 tabs 01/19 04/13 hydrocodone 5 mg-acetaminophen 325 1 tab PO Q8H PRN pa in #15 tabs 02/15/25 mg tablet ondansetron 4 mg disintegrating 4 mg PO Q8H PRN nausea and 02/15/25 tablet vomiting #20 tabs Allergies Allergy/AdvReac Type Severity Reaction Status Date / Time propoxyphene (From AdvReac Mild nightmares Verified 03/08/25 13:36 Darvocet-N) Review of Systems 2 Narrative: Constitutional symptoms: Negative except as documented in HPI. Skin symptoms: Negative except as documented in HPI. Eye symptoms: Negative except as documented in HPI. ENMT symptoms: Negative except as documented in HPI. Respiratory symptoms: Negative except as documented in HPI. Cardiovascular symptoms: Negative except as documented in HPI. Gastrointestinal symptoms: Negative except as documented in HPI. Genitourinary symptoms: Negative except as documented in HPI. Musculoskeletal symptoms: Negative except as documented in HPI. Neurologic symptoms: Negative except as documented in HPI. Psychiatric symptoms: Negative except as documented in HPI. Endocrine symptoms: Negative except as documented in HPI. PFSH ED 2 PFSH: Medical History Colitis Squamous cell carcinoma of anal canal Hypothyroid Hyperlipidemia Mitral valve prolapse Arm fracture, left fx left elbow Status post chemoradiation Vitamin A deficiency Small fiber neuropathy Hypertension History of breast cancer (~1999) stage IIA (T1c, pN1, M0), ER positive/SC negative and HER-2/pawan negative. Gastro-esophageal reflux History of anal cancer (~2016) stage II (T2, N0, M0). Depression Surgical History History of elbow surgery History of colonoscopy with polypectomy (07/31/21) H/O laparoscopy Both ovaries removed-- due to continued pain H/O wrist surgery Left H/O: hysterectomy (~1996) [place], B/L salpingectomy--due to pelvic pain; [place] H/O total mastectomy (~1999) Right-- ER +/ SC - HER 2 neg Family History Grandmother Breast cancer Paternal grandmother age unknown Sister Uterine cancer dx'd in late 20s Father Heart disease Hyperlipidemia Hypertension Mother Diabetes Denies family history of Stroke Social History Smoking and tobacco/nicotine status: never used tobacco/nicotine Alcohol intake: former Substance/Drug Use: current Additional social history: - Tobacco use: Denies Alcohol use: Denies Drug use: Marijuana use Physical Exam 2 Narrative: EXAM NARRATIVE: General: Alert, no acute distress. Skin: Warm, dry. Head: Normocephalic, atraumatic. Neck: Supple, trachea midline. Eye: Extraocular movements are intact. Ears, nose, mouth and throat: mucosa moist. Cardiovascular: Regular, Normal peripheral perfusion. Respiratory: Lungs are clear to auscultation, respirations are non-labored, breath sounds are equal, Symmetrical chest wall expansion. Gastrointestinal: Soft, Nontender, Non distended Musculoskeletal: Normal ROM, no deformity. Neurological: Alert and oriented, No focal neurological deficit observed. Psychiatric: Cooperative, appropriate mood & affect. Course 2 Vital Signs: Vital signs: Vital Signs Temperature 97.9 F 03/20/25 02:15 Pulse Rate 72 03/20/25 03:45 Respiratory Rate 16 03/20/25 02:15 Blood Pressure 131/78 03/20/25 03:45 Pulse Oximetry 97 03/20/25 03:45 Oxygen Delivery Me thod Room Air 03/20/25 03:45 MDM - Chest Pain Medical Decision Making Medical decision making: Differential diagnosis including but not limited to and based on the above HPI, review of systems and physical exam: for patient with palpitations: atrial fibrillation with rapid ventricular response. ventricular tachycardia. sinus tachycardia. PVCs. also concern for underlying issues causing tachycardia. Infection, electrolyte abnormalities and thyroid issues. Orders placed to evaluate differential diagnosis based on the above differential, HPI and physical exam EKG: Time 2:19 AM. Rate 53. Normal sinus rhythm, No ST-T changes, no ectopy, normal SC & QRS intervals, This was reviewed and interpreted by myself the ER physician at 2:22 AM. Chest x-ray: No acute process. No infiltrate. No pneumothorax. This was reviewed and interpreted by myself the emergency room physician. I also reviewed the radiology report. Lab Review: Laboratory results were reviewed and interpreted by myself the emergency room physician. No leukocytosis. No anemia. No renal failure. Cardiac markers are negative serially. I reviewed the patient's medical record. Reexamination: Patient remained stable. No increased work of breathing. No altered mental status. No focal motor deficits. PVCs were seen on monitor quite frequently during stay. Assessment and plan: PVCs - Discharged home - Discussed plan with patient. Answered any questions. - Evaluation and treatment of this problem were appropriate in the emergency setting. Lab Data 03/20/25 02:25 03/20/25 02:25 Laboratory Results WBC 8.42 10^3/uL (3.29-11.43) 03/20/25 02:25 RBC 4.14 10^6/uL (3.85-5.65) 03/20/25 02:25 Hgb 12.40 g/dL (11.27-16.99) 03/20/25 02:25 Hct 36.9 % (36-47) 03/20/25 02:25 MCV 89.1 fl (85-98) 03/20/25 02: MCH 30.0 pg (27-33) 03/20/25 02: MCHC 33.6 g/dL (30-55) 03/20/25 02:25 RDW 11.9 % (12.1-15.1) L 03/20/25 02:25 Plt Count 255 10^3/cmm (157-399) 03/20/25 02: MPV 8.9 fL (7.4-10.4) 03/20/25 02:25 Neut % (Auto) 41.9 % 03/20/25 02:25 Lymph % (Auto) 48.8 % 03/20/25 02:25 [place] % (Auto) 6.5 % 03/20/25 02:25 Eos % (Auto) 2.3 % 03/20/25 02:25 Baso % (Auto) 0.4 % 03/20/25 02:25 Neut # (Auto) 3.53 10^3/uL (1.8-7.7) 03/20/25 02:25 Lymph # (Auto) 4.1 10^3/uL (0.8-4.8) 03/20/25 02:25 [place] # (Auto) 0.6 10^3/uL (0.2-0.9) 03/20/25 02:25 Eos # (Auto) 0.2 10^3/uL (0.0-0.8) 03/20/25 02:25 Baso # (Auto) 0.0 10^3/uL (0.0-0.1) 03/20/25 02:25 Nucleated RBC % (auto) 0 % 03/20/25 02:25 Nucleated RBCs # 0.0 /100WBC 03/20/25 02:25 Sodium 138 mmol/L (136-145) 03/20/25 02:25 Potassium 3.7 mmol/L (3.5-5.1) 03/20/25 02:25 Chloride 99 mmol/L (98-107) 03/20/25 02:25 Carbon Dioxide 26 mmol/L (22-29) 03/20/25 02:25 Anion Gap 16.7 (5-19) 03/20/25 02:25 BUN 9 mg/dL (6-20) 03/20/25 02:25 Creatinine 0.9 mg/dL (0.5-0.9) 03/20/25 02:25 GFR Calculation 64.5 mL/min (90-130) L 03/20/25 02:25 Glucose 101 mg/dL (65-115) 03/20/25 02:25 Calculated Osmolality 285 mOsm/kg (285-295) 03/20/25 02:25 Calcium 9.7 mg/dL (8.5-10.5) 03/20/25 02:25 Magnesium 1.9 mg/dL (1.7-2.3) 03/20/25 02:25 Total Bilirubin 0.2 mg/dL (0.15-1.2) 03/20/25 02:25 AST 28 U/L (0-32) 03/20/25 02:25 ALT 42 U/L (0-33) H 03/20/25 02:25 Alkaline Phosphatase 85 U/L (35-105) 03/20/25 02:25 Troponin T Baseline < 6 ng/L (0-10) 03/20/25 02:25 Troponin T 120 Minute < 6.0 ng/L (0-10) 03/20/25 03:53 Delta Troponin T 0 ABS# (0-10) 03/20/25 03:53 NT-Pro-B Natriuret Pep 106 pg/mL (0-125) 03/20/25 02:25 Total Protein 7.7 g/dL (6.6-8.7) 03/20/25 02:25 Albumin 4.2 g/dL (3.5-5.2) 03/20/25 02:25 Globulin 3.5 g/dL (1.3-4.6) 03/20/25 02:25 TSH 5.70 uIU/mL (0.27-4.20) H 03/20/25 02:25 All radiology interpretation(s) finalized by discharge Discharge Plan Discharge Patient Disposition: Home Clinical Impression: Frequent PVCs, Non-cardiac chest pain Condition: Stable Prescriptions: No Action atorvastatin 20 mg tablet 20 mg PO BEDTIME Qty: 30 5RF levothyroxine 50 mcg tablet 50 mcg PO QAM Qty: 30 5RF ergocalciferol (vitamin D2) [Vitamin D2] 1,250 mcg (50,000 unit) capsule 50,000 unit PO Q7D Qty: 7 5RF Rx Instructions: on tu diclofenac sodium [Voltaren Arthritis Pain] 1 % gel 2 g topical QID PRN (Reason: Pain) Qty: 100 5RF Rx Instructions: apply to knee hydrocortisone-pramoxine [Analpram-HC] 1-1 % cream 1 applic SC QID PRN (Reason: itching) Qty: 30 5RF omeprazole 40 mg capsule,delayed release(DR/EC) 40 mg PO QAM Qty: 30 5RF gabapentin 800 mg tablet 800 mg PO BID Qty: 60 5RF fluoxetine 20 mg capsule 20 mg PO DAILY Qty: 30 5RF fexofenadine-pseudoephedrine [Pamela-D 12 Hour] 60-120 mg tablet extended release 12 hr 1 tab PO Q12H PRN (Reason: allergy symptoms) Qty: 60 0RF valsartan 160 mg tablet 160 mg PO BID Qty: 180 3RF metoprolol tartrate 75 mg tablet 75 mg PO BID@0900,2100 Qty: 180 3RF cyanocobalamin (vitamin B-12) [Vitamin B-12] 1,000 mcg Tablet 1,000 mcg PO DAILY PRN (Reason: unknown) ascorbic acid (vitamin C) [Vitamin C] 500 mg Tablet 500 mg PO DAILY PRN (Reason: unknown) magnesium oxide 400 mg magnesium Tablet 400 mg PO DAILY PRN (Reason: unknown) trazodone 50 mg tablet 50 - 100 mg PO BEDTIME PRN (Reason: insomina) Rx Instructions: TAKE 1 TO 2 TABLETS BY MOUTH AT BEDTIME amlodipine 10 mg tablet 10 mg PO DAILY Rx Instructions: TAKE ONE TABLET BY MOUTH DAILY raloxifene [Evista] 60 mg tablet 60 mg PO DAILY Rx Instructions: TAKE ONE TABLET BY MOUTH DAILY CoQ-10 1 tab PO DAILY ondansetron 4 mg tablet,disintegrating 4 mg PO Q8H PRN (Reason: nausea and vomiting) Qty: 20 0RF hydrocodone-acetaminophen 5-325 mg tablet 1 tab PO Q8H PRN (Reason: pain) Qty: 15 0RF Discharge Orders: Discharge ED (Routine); Ordered 03/20/25 Ordered By: Mini Foy Referrals: Pilar Garcia FNP [Primary Care Provider, Family Practice] Discharge Diet: Usual diet Discharge Activity: Increase activity as tolerated Patient Instructions: Heart Palpitations (ED), Opioid Safety, Pain Management, Patient Portal & Dionisio Instructions Activity Restrictions/Additional Instructions: Thank you for choosing [facility] for your healthcare needs today. You have been screened and evaluated and felt safe for discharge. Health conditions do change or evolve sometimes and as such it is important that you follow up with your Primary Doctor to be re checked, 3-5 days is a general good time frame for follow up. You are always welcome to return to the ED for re assessment if your symptoms are worsening or you have new concerns Print Language: [place] Coding Level of Care Code ED Manager Pharmaceutical for Mickey Lopes
[2025-03-20 02:38] LABS: Hematocrit 36.9 % (36-47); Hemoglobin 12.40 g/dL (11.27-16.99); Mean Corpuscular HGB Conc 33.6 g/dL (30-55); Mean Corpuscular Hemoglobin 30.0 pg (27-33); Mean Corpuscular Volume 89.1 fl (85-98); Nucleated Red Blood Cells % 0 %; Platelet Count 255 10^3/cmm (157-399); Red Blood Count 4.14 10^6/uL (3.85-5.65); White Blood Count 8.42 10^3/uL (3.29-11.43)
[2025-03-20 03:00] LABS: Troponin(5th) Baseline < 6 ng/L (0-10)
[2025-03-20 03:07] LABS: Alanine Aminotransferase 42 U/L (0-33); Albumin Level 4.2 g/dL (3.5-5.2); Alkaline Phosphatase 85 U/L (35-105); Anion Gap 16.7 (5-19); Aspartate Amino Transferase 28 U/L (0-32); Blood Urea Nitrogen 9 mg/dL (6-20); Calcium 9.7 mg/dL (8.5-10.5); Carbon Dioxide 26 mmol/L (22-29); Chloride 99 mmol/L (98-107); Creatinine Clr Calc Pharmacy 69.8702; Globulin 3.5 g/dL (1.3-4.6); Glucose 101 mg/dL (65-115); Magnesium 1.9 mg/dL (1.7-2.3); NT Pro B Type Natriuretic Pept 106 pg/mL (0-125); Osmolality Calculated 285 mOsm/kg (285-295); Potassium 3.7 mmol/L (3.5-5.1); Sodium 138 mmol/L (136-145); Thyroid Stimulating Hormone 5.70 uIU/mL (0.27-4.20); Total Protein 7.7 g/dL (6.6-8.7)
[2025-03-20 03:45] VITALS: BP 131/78; PULSE 72; O2SAT 97
[2025-03-20 04:18] LABS: Troponin 5 2HR < 6.0 ng/L (0-10); Troponin 5 2HR Delta 0 ABS# (0-10)
[2025-03-20 04:23] VITALS: BP 138/80; PULSE 71; O2SAT 97
== END 2025-03-20 04:35 | disposition home or self-care (01) ==
PROVIDERS: Emergency Provider Emergency Medicine; PCP Nurse Practitioner Family
DX: I49.3 Ventricular premature depolarization (principal); R07.89 Other chest pain; E78.5 Hyperlipidemia, unspecified; I10 Essential (primary) hypertension; Z85.048 Personal history of other malignant neoplasm of rectum, rectosigmoid junction, and anus; Z85.3 Personal history of malignant neoplasm of breast
CPT/HCPCS: 71045; 80053; 83735; 83880; 84443; 84484; 85025; 93005; 99285; J9999

== ENCOUNTER 2025-03-20 05:00 | Outpatient (RCR) | payer MEDICARE, SELFPAY | END 2025-04-19 23:59 | disposition home or self-care (01) | LOC: TPT 05:00 | PROVIDERS: Visit Provider Orthopaedic Surgery | DX: Z47.1 Aftercare following joint replacement surgery (principal); Z96.652 Presence of left artificial knee joint | CPT/HCPCS: 97110; 97161 ==

== ENCOUNTER 2025-03-21 12:08 | Observation (INO) | payer MEDICARE, SELFPAY ==
[2025-03-21] VITALS (16 sets, daily range): BP systolic 112–147; BP diastolic 62–88; PULSE 54–93; RESP 15–18; TEMP 36.2–36.8; O2SAT 92–98; BMI 23.5
--- NOTE | 2025-03-21 09:39 | W.PM.OPSUD ---
Surgery/Procedure H&P Update DATE OF PROCEDURE: March 21, 2025 DATE H&P PERFORMED: 03/08/25 H&P UPDATE INFORMATION: I have reviewed H&P completed within last 30 days, I have examined patient prior to procedure and No changes to prior documentation PREOP DIAGNOSIS: End-stage degenerative joint disease left PLANNED PROCEDURE: Operation Date: 03/21/25 10:35 Proposed Procedures p LEFT Total Knee Arthroplasty(Left) - iMkal Barry MD
--- NOTE | 2025-03-21 09:49 | ANES.PREANE2 ---
Pre-Anesthetic Assessment Height/Weight: Height 5 ft 7 in Weight 150 lb Temp Pulse Resp BP Pulse Ox O2 Del Method 97.1 F L 57 L 18 142/88 98 Room Air 03/21/25 09:24 03/21/25 09:24 03/21/25 09:24 03/21/25 09:24 03/21/25 09:24 03/21/25 09:30 Preop Diagnosis: End-stage degenerative joint disease left Operation Date: 03/21/25 10:35 Proposed Procedures p LEFT Total Knee Arthroplasty(Left) - Mikal Barry MD Was Beta Javier taken within 24 hours: N/A Was Clonidine taken within 24 hours: N/A Last intake: Intake Last Liquid Date 03/20/25 Last Liquid Time 23:55 Last Solid Date 03/20/25 Last Solid Time 23:00 Social No alcohol and No tobacco Exam alert, oriented x 3 and regular rate & rhythm Airway Submandibular: within normal limits Cervical ROM: within normal limits Mallampati: Class II Comments: Comments: edentulous Anesthetic Plan ASA status: 3 Anesthesia: Regional (specify below) Other: No prior issues with anesthesia NPO since yesterday evening Current smoker, marijuana History of hypothyroidism on Synthroid Hypertension on metoprolol GERD on omeprazole Labs reviewed acceptable for procedure EKG showing sinus bradycardia with prior old septal DC Patient states that she is able to ambulate without severe shortness of breath but is limited secondary to pain Plan for spinal anesthesia with peripheral nerve block Medications/Allergies Home Medications ?Medication ?Instructions ?Recorded ?Confirmed ?Last Taken ?Type fexofenadine 60 mg-pseudoephedrine 1 tab PO Q12H PRN allergy symptoms 04/01/22 03/20/25 11/29/24 Rx ER 120 mg tablet,ext.release,12 hr #60 tabs (Pamela-D 12 Hour) ascorbic acid (vitamin C) 500 mg 500 mg PO DAILY PRN unknown 06/07/23 03/20/25 11/29/24 History tablet (Vitamin C) cyanocobalamin (vitamin B-12) 1,000 mcg PO DAILY PRN unknown 06/07/23 03/20/25 11/29/24 History 1,000 mcg tablet (Vitamin B-12) magnesium oxide 400 mg PO DAILY PRN unknown 06/07/23 03/20/25 Unknown History atorvastatin 20 mg tablet 20 mg PO BEDTIME #30 tabs 10/17/24 03/20/25 03/19/25 Rx diclofenac sodium 1 % topical gel 2 g topical QID PRN Pain #100 grams 10/17/24 03/20/25 11/29/24 Rx (Voltaren Arthritis Pain) ergocalciferol (vitamin D2) 1,250 50,000 unit PO Q7D #7 caps 10/17/24 03/20/25 03/13/25 Rx mcg (50,000 unit) capsule (Vitamin D2) fluoxetine 20 mg capsule 20 mg PO DAILY #30 caps 10/17/24 03/20/25 03/20/25 Rx gabapentin 800 mg tablet 800 mg PO BID #60 tabs 10/17/24 03/20/25 03/20/25 Rx hydrocortisone-pramoxine 1 %-1 % 1 applic MT QID PRN itching #30 10/17/24 03/20/25 Unknown Rx rectal cream (Analpram-HC) grams omeprazole 40 mg capsule,delayed 40 mg PO QAM #30 caps 10/17/24 03/20/25 03/20/25 Rx release CoQ-10 1 tab PO DAILY 11/28/24 03/20/25 03/13/25 History amlodipine 10 mg tablet 10 mg PO QNOON 11/28/24 03/20/25 03/20/25 History raloxifene 60 mg tablet (Evista) 60 mg PO DAILY 11/28/24 03/20/25 03/20/25 History trazodone 50 mg tablet 50 - 100 mg PO BEDTIME PRN insomina 11/28/24 03/20/25 03/18/25 History metoprolol tartrate 75 mg tablet 75 mg PO BID@0900,2100 #180 tabs 02/13/25 03/20/25 03/21/25 Rx valsartan 160 mg tablet 160 mg PO BID #180 tabs 02/13/25 03/20/25 03/20/25 Rx hydrocodone 5 mg-acetaminophen 325 1 tab PO Q8H PRN pain #15 tabs 02/15/25 03/20/25 Unknown Rx mg tablet levothyroxine 75 mcg tablet 75 mcg PO QAM #30 tabs 03/20/25 03/20/25 03/20/25 Rx Allergies Allergy/AdvReac Type Severity Reaction Status Date / Time propoxyphene (From AdvReac Mild nightmares Verified 03/20/25 12:26 Darvocet-N) [facility] Anesthesia Medical History Colitis Squamous cell carcinoma of anal canal Hypothyroid Hyperlipidemia Mitral valve prolapse Arm fracture, left fx left elbow Status post chemoradiation Vitamin A deficiency Small fiber neuropathy Hypertension History of breast cancer (~1999) stage IIA (T1c, pN1, M0), ER positive/MT negative and HER-2/pawan negative. Gastro-esophageal reflux History of anal cancer (~2016) stage II (T2, N0, M0). Depression Surgical History History of elbow surgery History of colonoscopy with polypectomy (07/31/21) H/O laparoscopy Both ovaries removed-- due to continued pain H/O wrist surgery Left H/O: hysterectomy (~1996) [place], B/L salpingectomy--due to pelvic pain; [place] H/O total mastectomy (~1999) Right-- ER +/ [place] - HER 2 neg Family History Grandmother Breast cancer Paternal grandmother age unknown Sister Uterine cancer dx'd in late 20s Father Heart disease Hyperlipidemia Hypertension Mother Diabetes Denies family history of Stroke Social History Smoking and tobacco/nicotine status: never used tobacco/nicotine Alcohol intake: former Substance/Drug Use: current Additional social history: - Tobacco use: Denies Alcohol use: Denies Drug use: Marijuana use Data Anesthesia Cardiac Studies: Echocardiogram 06/07/23
[2025-03-21] MEDS: ceFAZolin 2,000 mg SDV 2000 MG IVP ×2 (10:06→17:42)
[2025-03-21] MEDS: tranexamic acid 1,000 mg/10mL SDV 1000 MG IV (10:32)
--- NOTE | 2025-03-21 11:45 | XR_ITS ---
WS: [id number] XR knee LT -2V [id number] REASON FOR EXAM: Left total knee arthroplasty FINDINGS: Total left knee arthroplasty. Components of the arthroplasty are intact and in proper position and alignment. No focal bone abnormality. XR/XR knee LT -2V [id number] IMPRESSION: Total left knee arthroplasty without abnormality.
--- NOTE | 2025-03-21 11:55 | P.OP_ITS ---
Operative Report Date of procedure: March 21, 2025 Surgeon: Mikal Barry MD Procedure: Preoperative diagnosis: End-stage degenerative joint disease of the left knee Postoperative diagnosis: Same Procedure: Left total knee arthroplasty Surgeon: Mikal Barry MD Commercial Instructor Supervisor: ROSALIND Hammer was necessary for positioning the patient, assistance during the procedure, wound closure, dressing placement, transfer the patient to the PACU Anesthesia: Spinal with IV sedation EBL: 10 cc Tourniquet time: 46 minutes at 250 mmHg Indications: Zee is a 59-year-old white female came in to the clinics with complaints of left knee pain. 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 Due to the extent of her involvement of both femoral condyles as well as the tibial plateau was not felt that we could do bone stimulation surgery but more than likely a total knee arthroplasty would be most beneficial for correcting all this. All risk benefits treatment alternatives were discussed with her and she was agreeable to this at this time. Procedure: After obtaining her consent patient was taken to the operative room placed operative table in while still sitting up had spinal anesthetic administered. Once good as seizure was achieved. Patient was placed supine on the operative table. Pneumatic cuffs placed from proximal left leg. Left leg was prepped and draped usual fashion. After surgical timeout and gravity exsanguination of the leg pneumatic cuff inflated 250 mmHg. Knee was then flexed 9 degrees as the foot was in a foot steiner to hold it in position. Longitudinal incision made from the tibial tubercle to the superior pole of the patella. Sharp dissect taken on down the subcutaneous tissues electrocautery used for hemostasis. Soft tissue was stripped away from the extensor mechanism. Extensor mechanism open on the along a medial parapatellar incision line. Once within the knee soft tissue were sharply breed including anterior horns of the menisci, ACL, and portion of the fat pad. Leg is felt the full extension patella was everted. Excess tissue around it was removed with the electrocaut edith. It was sized to size 38 reaming male. This was then used to ream the patella down to 14 mm thickness. Further fat pad was removed with electrocautery at this time. Leg was flexed back up to 90 degrees with appropriate tractors placed. This included PCL retractor to expose the proximal tibia. Tibial cutting guide was position with appropriate posterior slope. Also set for 2 mm cut at the most affected side that being medial. There is also aligned with the tibial spine. This is pinned in place. Small osteotome driven anterior to the PCL to protect it during cutting. Sagittal saw was then used to make tibial cut without any difficulties. Tibial plateau cut was split down the middle and a box cut was made around the insertion of the PCL. Tibial cut was removed piecemeal. At this point PCL retractor was removed and drill holes made in the distal femur just anterior to the intercondylar notch. Guide jeremías was then placed up through this into the medullary canal of the femur. Distal cutting block was positioned and pinned in place. Distal cuts were made without any difficulties. Distal femur sized a size 6 femoral cutting block. Appropriate drill holes made through the sizer. Cutting block was then placed within this holes and impacted in the distal femur. Anterior posterior and chamfer cuts were made without any difficulties. PCL retractor was placed back into the joint line. The remainder of the soft tissues i.e. meniscus were removed from the joint line. Tibial plateau was sized to a size C tibial plate and then was positioned with a external axial jeremías for alignment. Then this was then pinned in place. Prepping for permanent tibial plateau was then done with the drill hole down the interventionally canal and then a punch to make for the post for the permanent plate. At this point trial femoral component was then impacted on the distal femur that being size 6. Trial 10 mm spacer was placed on the tibial tray and knee was put range of motion. The knee was found to be tight in extension with a slight flexion contracture. Otherwise was stable throughout range of motion. Posterior patella size a size 32 patellar button and proper drill holes made with the guide. Trial patella was placed and knee was put the range of motion found to be stable. Adhering to subcutaneous tissue was removed from the outer portion of the extensor mechanism with electrocautery. Trial components removed after drill holes placed in the femoral component. At this point a curved osteotome was used to strip capsule at the posterior aspect of the femur to allow for better range of motion. Knee was washed copious amounts post lavage irrigation to clear all bone fragments and soft tissue debris. Bone plug was placed in the distal femoral drill hole. Surfaces are dried. Permanent size C tibial plateau tray was placed and impacted. Size 6 femoral permanent cut implant was then impacted on the distal femur. Trial size 10 spacer was placed and found to fit easily. Leg was put through range of motion now had full range of motion with no flexion contracture. Trial of tibial straight was removed and permanent tibial tray was placed and locked in place. Knee was put the range of motion found to be stable in all positions. Tibial component was then placed on the posterior patella and compressed into place. This too was then put the range of motion found to be stable. Pneumatic cuff deflated after 46 minutes total tourniquet time. Once again were washed with sterile ligation. Extensor mechanism repair #1 Vicryl [id number] sutures. Subcutaneous was reapproximated 0 Vicryl interrupted sutures and skin was closed with skin armando. Wounds are clean and dry dressed with Xeroform gauze sterile gauze dressing Webril and Corona wrap for compression. Patient was awakened transferred to the recovery room in stable condition
--- NOTE | 2025-03-21 12:32 | ANE.PACU2 ---
Inpatient post-anesthesia follow up: Airway intact: Yes Vital signs: Temperature 97.4 F Pulse Rate 63 Respiratory Rate 16 Blood Pressure 135/85 Pulse Oximetry 97 Oxygen Delivery Me thod Room Air Oxygen Flow Rate Fraction of Inspir ed Oxygen Hydration adequate: Yes Nausea and vomiting: No Pain level: 1 Mental status: Baseline
[2025-03-21] MEDS: HYDROcodone-acetaminophen 5-325 mg Tablet 1 TAB PO ×2 (13:30→17:53)
--- NOTE | 2025-03-21 13:48 | W.PM.OPSUD ---
Surgery/Procedure H&P Update DATE OF PROCEDURE: March 21, 2025 DATE H&P PERFORMED: 03/08/25 H&P UPDATE INFORMATION: I have reviewed H&P completed within last 30 days, I have examined patient prior to procedure and No changes to prior documentation PREOP DIAGNOSIS: End-stage degenerative joint disease left PLANNED PROCEDURE: Operation Date: 03/21/25 10:35 Proposed Procedures p LEFT Total Knee Arthroplasty(Left) - Mikal Barry MD
--- NOTE | 2025-03-21 16:26 | PC.NURSE ---
MEDICATIONS WERE SCANNED AND GIVEN AT BEDSIDE AND WERE SAVED IN ROOM, UNSURE WHY THEY SHOWED UP NOT GIVEN.
[2025-03-21] MEDS: sennosides-docusate Tablet 2 TAB PO (17:41)
[2025-03-21] MEDS: mupirocin oint 22 gm 1 APPLIC NASAL (17:42)
[2025-03-21] MEDS: chlorhexidine gluconate 0.12% Btl 473 mL 30 ML MUCOUS MEM ×2 (17:42→21:25)
--- NOTE | 2025-03-21 18:15 | PC.NURSE ---
PATIENT PUT OUTDOOR ILLUMINATING ENGINEER LIGHT AROUND 1630 AND SAID THAT SHE WAS HAVING SOME VAGINAL BLEEDING JESS AND LORENA WENT INTO CHECK ON HER AND COME TO FIND OUT SHE HAS HAD A HYST YEARS AGO AND HAS NOT HAD A PERIOD IN OVER 20 YEARS, LORENA CLEANED HER UP AND DID NOT SEE ANYTHING FROM HER VAGINA SO MIGHT HAVE BEEN LIKE IRRITATION PERHAPS FROM HER OSHEA. WILL CONTINUE WATCHING.
--- NOTE | 2025-03-21 18:21 | PC.NURSE ---
PATIENT LOOKED AT PAD AND THERE WAS NOTHING ON IT AT THIS TIME.
--- NOTE | 2025-03-21 18:22 | PC.NURSE ---
1644 AFTER LORENA AND JESS CLEANED HER UP THEY ASSISTED PATIENT FROM CHAIR BACK TO BED. PATIENT DID VERY WELL.
[2025-03-21] MEDS: morphine 4 mg/mL SDV 1 mL IVP (19:30)
[2025-03-21] MEDS: ATORVASTATIN 10 MG TABLET 20 MG PO (21:15)
[2025-03-22] MEDS: ceFAZolin 2,000 mg SDV 2000 MG IVP ×2 (02:09→10:54)
[2025-03-22] MEDS: HYDROcodone-acetaminophen 5-325 mg Tablet 1 TAB PO ×2 (02:12→11:54)
[2025-03-22 04:00] VITALS: BP 126/78; PULSE 71; RESP 17; TEMP 36.8; O2SAT 97
[2025-03-22 04:57] LABS: Hematocrit 36.8 % (36-47); Hemoglobin 12.30 g/dL (11.27-16.99); Mean Corpuscular HGB Conc 33.4 g/dL (30-55); Mean Corpuscular Hemoglobin 29.9 pg (27-33); Mean Corpuscular Volume 89.3 fl (85-98); Nucleated Red Blood Cells % 0 %; Platelet Count 274 10^3/cmm (157-399); Red Blood Count 4.12 10^6/uL (3.85-5.65); White Blood Count 10.51 10^3/uL (3.29-11.43)
[2025-03-22 05:14] LABS: Anion Gap 18.1 (5-19); Blood Urea Nitrogen 12 mg/dL (6-20); Calcium 9.4 mg/dL (8.5-10.5); Carbon Dioxide 25 mmol/L (22-29); Chloride 98 mmol/L (98-107); Creatinine Clr Calc Pharmacy 62.8832; Glucose 149 mg/dL (65-115); Osmolality Calculated 287 mOsm/kg (285-295); Potassium 4.1 mmol/L (3.5-5.1); Sodium 137 mmol/L (136-145)
[2025-03-22] MEDS: chlorhexidine gluconate 0.12% Btl 473 mL 30 ML MUCOUS MEM (10:12)
[2025-03-22] MEDS: mupirocin oint 22 gm 1 APPLIC NASAL (10:12)
[2025-03-22 10:13] VITALS: BP 132/80
[2025-03-22] MEDS: multivitamin therapeutic Tablet 1 TAB PO (10:14)
[2025-03-22] MEDS: sennosides-docusate Tablet 2 TAB PO (10:14)
[2025-03-22 10:15] VITALS: BP 132/80; PULSE 77; RESP 16; TEMP 36.7; O2SAT 98
--- NOTE | 2025-03-22 13:01 | P.DS_ITS ---
Discharge Providers Date of Admission: 03/21/25 12:08 Date of Discharge: March 22, 2025 Attending Provider at Admission: Mikal Barry MD Attending Provider at Discharge: Mikal Barry MD Primary Care Provider: FITO Sullivan Diagnoses at Discharge Discharge Diagnosis (1) S/P total knee arthroplasty: Status: Acute Qualifiers: Laterality: left Qualified Code(s): Z96.652 - Presence of left artificial knee joint Permanent problem details: Date of procedure: March 21, 2025 Surgeon: Mikal Barry MD Procedure: Left total knee arthroplasty (2) Osteoarthritis of left knee: Status: Resolved Qualifiers: Osteoarthritis type: primary Qualified Code(s): M17.12 - Unilateral primary osteoarthritis, left knee Reason for Visit Reason for Visit: M86.162 Brief History: Zee is a 59-year-old white female came in to the clinics with complaints of left knee pain. 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 Due to the extent of her involvement of both femoral condyles as well as the tibial plateau was not felt that we could do bone stimulation surgery but more than likely a total knee arthroplasty would be most beneficial for correcting all this. All risk benefits treatment alternatives were discussed with her and she was agreeable to this at this time. Underwent successful left total knee arthroplasty on March 21, 2025. Was admitted for observation subsequently. Hospital Course Hospital Course Zee is postoperative day 1 from a left total knee arthroplasty on March 21, 2025. She is doing well. Her postoperative pain has been well-managed with oral medications. She is working well with therapy, ambulating with a walker. Postoperative dressings are intact with expected bloody postoperative drainage. Dressings were changed to new water resistant Silverlon dressing. After review and visit with the patient, she is found to be stable for orthopedic discharge. Will plan to discharge with home nursing/therapy services, as insurance allows. Patient will follow-up in the clinic 2 weeks postoperatively. Physical Exam Const: COMMON NORMALS: no acute distress, average body habitus, patient oriented x3, no limitations, alert and well nourished GENERAL APPEARANCE: cooperative; not anxious and not combative ORIENTATION/CONSCIOUSNESS: Yes awake, Yes oriented to person, Yes oriented to place and Yes oriented to time HENMT: COMMON NORMALS: normocephalic and atraumatic HEAD & SCALP: normocephalic and atraumatic Resp: COMMON NORMALS: normal respiratory effort Cardio: OTHER: Denies shortness of breath, chest pain or pressure. Extremity: LEFT LOWER EXTREMITY: Yes knee joint (Bulky dressings removed for evaluation.) Left knee: Yes inspection (Avery intact. Dried bloody drainage on dressing. Mild swelling. ), Yes palpation (TTP to distal quad and anterior thigh from tourniquet.), Yes ROM (Able to straight leg raise.) and Yes neurovascular exam (Sensation intact to light touch. Rapid cap refill.) and Yes lower leg Left lower leg: Yes special tests (Calf soft and nontender.) Left lower leg special tests: Argelia's sign: Negative Neuro: COMMON NORMALS: patient oriented x3 SENSORIUM/ORIENTATION: Yes alert, Yes oriented to person, Yes oriented to place and Yes oriented to time Psych: ATTITUDE: Yes engaged Skin: COMMON NORMALS: no rashes or lesions noted, turgor normal and no jaundice GENERAL SKIN EXAM: no rashes or lesions noted and turgor normal Urinary Catheter Management: Ward: Cath Placed During This Visit: yes, but has since been removed by the nurse Reason for Continuing Indwelling Catheter: Decision to DC Catheter Urinary Catheter Date of Insertion: 03/21/25 Urinary Catheter Time of Insertion: 10:16 Date Urinary Catheter Removed: 03/22/25 Time Urinary Catheter Discontinued: 03:45 Discharge Data Studies Completed and Pending Completed Studies During Hospitalization Category Date Time Status XR knee LT 1-2V [id number] Stat Exams 03/21/25 11:45 Completed Pending at discharge Category Date Time Status Complete Blood Count w/Auto AM LABS Lab 03/23/25 04:00 Uncollected Complete Blood Count w/Auto AM LABS Lab 03/24/25 04:00 Uncollected Radiology Impressions Knee X-Ray 03/21/25 11:45 IMPRESSION: Total left knee arthroplasty without abnormality. Laboratory Results WBC 10.51 10^3/uL (3.29-11.43) 03/22/25 04:30 RBC 4.12 10^6/uL (3.85-5.65) 03/22/25 04:30 Hgb 12.30 g/dL (11.27-16.99) 03/22/25 04:30 Hct 36.8 % (36-47) 03/22/25 04:30 MCV 89.3 fl (85-98) 03/22/25 04:30 MCH 29.9 pg (27-33) 03/22/25 04:30 MCHC 33.4 g/dL (30-55) 03/22/25 04:30 RDW 11.9 % (12.1-15.1) L 03/22/25 04:30 Plt Count 274 10^3/cmm (157-399) 03/22/25 04:30 MPV 9.0 fL (7.4-10.4) 03/22/25 04:30 Neut % (Auto) 72.1 % 03/22/25 04:30 Lymph % (Auto) 21.2 % 03/22/25 04:30 [place] % (Auto) 5.8 % 03/22/25 04:30 Eos % (Auto) 0.4 % 03/22/25 04:30 Baso % (Auto) 0.3 % 03/22/25 04:30 Neut # (Auto) 7.58 10^3/uL (1.8-7.7) 03/22/25 04:30 Lymph # (Auto) 2.2 10^3/uL (0.8-4.8) 03/22/25 04:30 [place] # (Auto) 0.6 10^3/uL (0.2-0.9) 03/22/25 04:30 Eos # (Auto) 0.0 10^3/uL (0.0-0.8) 03/22/25 04:30 Baso # (Auto) 0.0 10^3/uL (0.0-0.1) 03/22/25 04:30 Nucleated RBC % (auto) 0 % 03/22/25 04:30 Nucleated RBCs # 0.0 /100WBC 03/22/25 04:30 Sodium 137 mmol/L (136-145) 03/22/25 04:30 Potassium 4.1 mmol/L (3.5-5.1) 03/22/25 04:30 Chloride 98 mmol/L (98-107) 03/22/25 04:30 Carbon Dioxide 25 mmol/L (22-29) 03/22/25 04:30 Anion Gap 18.1 (5-19) 03/22/25 04:30 BUN 12 mg/dL (6-20) 03/22/25 04:30 Creatinine 1.0 mg/dL (0.5-0.9) H 03/22/25 04:30 GFR Calculation 57.1 mL/min (90-130) L 03/22/25 04:30 Glucose 149 mg/dL (65-115) H 03/22/25 04:30 Calculated Osmolality 287 mOsm/kg (285-295) 03/22/25 04:30 Calcium 9.4 mg/dL (8.5-10.5) 03/22/25 04:30 Vitals Last Vital Signs Temp 98.3 F 03/22/25 04:00 Pulse 71 03/22/25 04:00 Resp 17 03/22/25 04:00 BP 132/80 03/22/25 10:13 Pulse Ox 97 03/22/25 04:00 O2 Del Method Room Air 03/21/25 14:30 Discharge Plan Discharge Patient Disposition: Home Health Service Condition: Stable Prescriptions: New hydrocodone-acetaminophen 5-325 mg Tablet 1 tab PO Q4H PRN (Reason: Moderate Pain) 5 Days Qty: 15 0RF Continued atorvastatin 20 mg tablet 20 mg PO BEDTIME Qty: 30 5RF ergocalciferol (vitamin D2) [Vitamin D2] 1,250 mcg (50,000 unit) capsule 50,000 unit PO Q7D Qty: 7 5RF Rx Instructions: on diclofenac sodium [Voltaren Arthritis Pain] 1 % gel 2 g topical QID PRN (Reason: Pain) Qty: 100 5RF Rx Instructions: apply to knee hydrocortisone-pramoxine [Analpram-HC] 1-1 % cream 1 applic IN QID PRN (Reason: itching) Qty: 30 5RF omeprazole 40 mg capsule,delayed release(DR/EC) 40 mg PO QAM Qty: 30 5RF gabapentin 800 mg tablet 800 mg PO BID Qty: 60 5RF fluoxetine 20 mg capsule 20 mg PO DAILY Qty: 30 5RF fexofenadine-pseudoephedrine [Pamela-D 12 Hour] 60-120 mg tablet extended release 12 hr 1 tab PO Q12H PRN (Reason: allergy symptoms) Qty: 60 0RF valsartan 160 mg tablet 160 mg PO BID Qty: 180 3RF metoprolol tartrate 75 mg tablet 75 mg PO BID@0900,2100 Qty: 180 3RF levothyroxine 75 mcg tablet 75 mcg PO QAM Qty: 30 2RF cyanocobalamin (vitamin B-12) [Vitamin B-12] 1,000 mcg Tablet 1,000 mcg PO DAILY PRN (Reason: unknown) ascorbic acid (vitamin C) [Vitamin C] 500 mg Tablet 500 mg PO DAILY PRN (Reason: unknown) magnesium oxide 400 mg magnesium Tablet 400 mg PO DAILY PRN (Reason: unknown) trazodone 50 mg tablet 50 - 100 mg PO BEDTIME PRN (Reason: insomina) Rx Instructions: TAKE 1 TO 2 TABLETS BY MOUTH AT BEDTIME amlodipine 10 mg tablet 10 mg PO QNOON Rx Instructions: TAKE ONE TABLET BY MOUTH DAILY raloxifene [Evista] 60 mg tablet 60 mg PO DAILY Rx Instructions: TAKE ONE TABLET BY MOUTH DAILY CoQ-10 1 tab PO DAILY hydrocodone-acetaminophen 5-325 mg tablet 1 tab PO Q8H PRN (Reason: pain) Qty: 15 0RF Discharge Orders: Discharge Order (Routine); Ordered 03/22/25 Ordered By: Brittany Morel Other Ambulatory Orders: DME: Walker (Order) Location: None Selected Ordered By: Mikal Barry Referrals: [facility] [Outside] Mikal Barry MD [Physician, Orthopedics] - 04/06/25 10:15 am Discharge Diet: Advance as tolerated and Usual diet Discharge Activity: Increase activity as tolerated, Use walker/crutches as instructed and As per PT/OT instructions Patient Instructions: Acute Wound Care (DC), Precautions after Total Joint Replacement Surgery (DC), Opioid Safety (DC), OB Discharge Report, OB Food/Drug Interaction Guide, Opioid Safety, Post Anesthesia Care, Patient Portal & Dionisio Instructions Activity Restrictions/Additional Instructions: May weight-bear as tolerated with the assistance of a walker for ambulation. Work with therapy services. Utilize medications as needed for postoperative discomfort, alternating with the use of [id number] Tylenol. Ice and elevate for any swelling. Maintain postoperative dressings and do not remove prior to first postoperative appointment. May shower with running water only. Do not soak incision site. Discharge Attestations Time Spent in Discharge Care*: greater than 30 min Status at Discharge: Cognitive status at discharge: cognitively intact , Behavioral status at discharge: cooperative , Quality Metrics Clinical Quality Measures [ No reported AMI, CVA or VTE this stay] Coding Level of Care Code Acute Code for Chg Fwd Diagnoses Status post total left knee replacement Z96.652 Laterality: left Primary osteoarthritis of left knee M17.12 Osteoarthritis type: primary
[2025-03-22 14:45] VITALS: BP 134/80; PULSE 69; RESP 16; TEMP 36.5; O2SAT 97
== END 2025-03-22 14:50 | disposition home health service (06) ==
LOC: OBGYN 12:08
PROVIDERS: Admitting Provider Orthopaedic Surgery; PCP Nurse Practitioner Family; Visit Provider Orthopaedic Surgery
PROC: (CPT 27447; principal; 2025-03-21 10:15)
DX: M17.12 Unilateral primary osteoarthritis, left knee (principal); K21.9 Gastro-esophageal reflux disease without esophagitis; F12.90 Cannabis use, unspecified, uncomplicated; E03.9 Hypothyroidism, unspecified; I10 Essential (primary) hypertension; I25.2 Old myocardial infarction; R00.1 Bradycardia, unspecified; E78.5 Hyperlipidemia, unspecified; F32.A Depression, unspecified; Z85.3 Personal history of malignant neoplasm of breast; Z85.048 Personal history of other malignant neoplasm of rectum, rectosigmoid junction, and anus
CPT/HCPCS: 27447; 36415; 51702; 73560; 80048; 85025; 97110; 97116; 97161; C1776; G0378; J0690; J1885; J2250; J2270; J2704; J3010; J7030; J9999

== ENCOUNTER → 2025-04-06 10:07 | Outpatient (BNVA) | payer MEDICARE, SELFPAY | PROVIDERS: PCP Nurse Practitioner Family; Visit Provider Orthopaedic Surgery | DX: Z96.652 Presence of left artificial knee joint (principal); Z01.89 Encounter for other specified special examinations | CPT/HCPCS: 73560; 73562; 73565; 99024 ==

== ENCOUNTER 2025-04-20 05:00 | Outpatient (RCR) | payer MEDICARE, SELFPAY | END 2025-05-20 23:59 | disposition home or self-care (01) | LOC: TPT 05:00 | PROVIDERS: Visit Provider Orthopaedic Surgery | DX: Z47.1 Aftercare following joint replacement surgery (principal); Z96.652 Presence of left artificial knee joint | CPT/HCPCS: 97110; 97140 ==

== ENCOUNTER → 2025-06-08 10:57 | Outpatient (BNVA) | payer MEDICARE, SELFPAY | PROVIDERS: Visit Provider Orthopaedic Surgery | DX: Z96.652 Presence of left artificial knee joint (principal); Z01.89 Encounter for other specified special examinations | CPT/HCPCS: 73560; 73565 ==

== ENCOUNTER → 2025-08-21 13:24 | Outpatient (BNVA) | payer MEDICARE, SELFPAY | PROVIDERS: PCP Nurse Practitioner Family; Visit Provider Internal Medicine Cardiovascular Disease | DX: I10 Essential (primary) hypertension (principal); R00.2 Palpitations; I34.0 Nonrheumatic mitral (valve) insufficiency | CPT/HCPCS: 99214 ==

== ENCOUNTER → 2025-08-24 13:35 | Outpatient (BNVA) | payer MEDICARE, SELFPAY | PROVIDERS: PCP Nurse Practitioner Family; Visit Provider Nurse Practitioner Family | DX: M25.511 Pain in right shoulder (principal); Z98.890 Other specified postprocedural states | CPT/HCPCS: 73030 ==

== ENCOUNTER → 2025-09-05 14:07 | Outpatient (BNVA) | payer MEDICARE, SELFPAY | PROVIDERS: PCP Nurse Practitioner Family; Visit Provider Specialist | DX: M25.511 Pain in right shoulder (principal); R22.1 Localized swelling, mass and lump, neck | CPT/HCPCS: 73030; 99205 ==

== ENCOUNTER → 2025-09-07 11:11 | Outpatient (BNVA) | payer MEDICARE, SELFPAY | PROVIDERS: PCP Nurse Practitioner Family; Visit Provider Orthopaedic Surgery | DX: Z96.652 Presence of left artificial knee joint (principal); M89.8X6 Other specified disorders of bone, lower leg | CPT/HCPCS: 73560; 73565; 99213 ==

== ENCOUNTER 2025-09-10 15:35 | Outpatient (CLI) | payer MEDICARE, SELFPAY ==
--- NOTE | 2025-09-10 16:00 | US_ITS ---
WS: [id number] ULTRASOUND SOFT TISSUES periclavicular region. HISTORY: swollen neck COMPARISON: None available. TECHNIQUE: 2-D and color Doppler imaging is submitted. Ultrasound is performed in the region of the RIGHT clavicle as directed by the patient. No soft tissue masses are identified. No mass is identified. Normal vascularity. US/US soft tissue head neck [id number] IMPRESSION: No ultrasound abnormality in the region of the RIGHT clavicle.
== END 2025-09-10 15:36 | disposition home or self-care (01) ==
LOC: RAD 15:38
PROVIDERS: PCP Nurse Practitioner Family; Visit Provider Specialist
DX: R22.1 Localized swelling, mass and lump, neck (principal)
CPT/HCPCS: 76536